=== PATIENT | female | born 1940 | race Caucasian/White ===

== ENCOUNTER → 2016-09-29 | Day surgery (SDC) | payer OTHER ==
--- NOTE | 2016-10-03 15:10 | PATH ---
Surgical Pathology Report Patient Name: MAKENNA VILLAREAL [facility]. Rec. #: [id number] /Age/Gender: 1940 (Age: 76) / F Account: [id number] [facility] Taken: 09/29/2016 Received: 09/29/2016 Reported: 10/03/2016 Physicians: Lul Dewey M.D. Specimen(s) Received RIGHT BREAST CORE BIOPSY 5:00 3CM FN Clinical History Ultrasound findings: Highly suspicious/malignant r/o CA Final Diagnosis BREAST, RIGHT, 5:00, 3 CM FN, CORE BIOPSY: EMBOLI (2) OF METASTATIC CARCINOMA IN LYMPHOVASCULAR CHANNELS AND DETACHED CLUSTERS OF MALIGNANT CELLS PRESENT IN A BACKGROUND OF NECROSIS. (SEE NOTE) REMAINING BREAST TISSUE SHOWS PREDOMINANTLY STROMAL FIBROSIS. Note: CD34 and factor VIII (vWF) immunostains performed at [place], [place] ([id number]) highlight vascular endothelium in the lymphovascular channels with tumor emboli. This finding supports the diagnosis. Case discussed with Dr. Mcqueen on 10/03/16. See also concurrent right axillary lymph node FNA report [id number]. Results of ER and KY studies performed at [facility] are as follows: ER (clone [id number] mouse monoclonal antibody by [employer]): 0 % nuclear staining (Negative). KY (clone16 mouse monoclonal antibody by [employer]): 0 % nuclear staining (Negative). Results of Her2 (IHC) studies performed at [place], [place] ([id number]) are as follows: Her2 IHC (EP3 from [employer], formerly known as [id number], using [employer] Polymer Refine detection kit): 3+ (Positive). Positive and negative controls (internal if applicable) show appropriate results. Formalin fixation and cold ischemic times are within current ASCO/CAP recommendations for ER, KY and Her2 testing. Electronically Signed Chrissy Chiang M.D. Gross Description Received in formalin labeled "right breast biopsy 5:00, 3 cmfn," is a 2.0 x 1.8 x 0.3 cm aggregate of multiple nash-yellow, irregular to cylindrical portions of fibroadipose tissue admixed with blood clot. The formalin is filtered and the specimen is entirely submitted in one cassette. Time to formalin fixation: 2 minutes Total formalin fixation time: Approximately 7 hours 09/29/2016
--- NOTE | 2016-10-03 15:28 | PATH ---
Cytology Non-Gynecological Report Patient Name: MAKENNA VILLAREAL [facility]. Rec. #: [id number] /Age/Gender: 1940 (Age: 76) / F Account: [id number] Location: Taken: 09/29/2016 Received: 09/29/2016 Reported: 10/03/2016 Physicians: Lul Dewey M.D. Specimen(s) Received RIGHT AXILLAY LYMPH NODE FNA Clinical History Right axillary lymph node FNA Final Diagnosis LYMPH NODE, RIGHT AXILLA, FINE NEEDLE ASPIRATION: SATISFACTORY FOR EVALUATION. POSITIVE FOR MALIGNANT CELLS; METASTATIC CARCINOMA. Note: See also concurrent right breast core biopsy [id number]. Electronically Signed Chrissy Chiang M.D. Gross Description Received in 50 % alcohol is approximately 15 cc of clear fluid from which one smear and one cytoconcentrate slide is prepared. Also received in 95% alcohol are four direct smears which are submitted for appropriate stains.
== END | disposition home or self-care (01) ==
LOC: FRADUS-SUR 12:58
PROVIDERS: ATTEND Surgery
PROC: 0HBT3ZX Excision of Right Breast, Percutaneous Approach, Diagnostic (ICD-10-PCS; principal; 2016-09-29)
PROC: 07953ZX Drainage of Right Axillary Lymphatic, Percutaneous Approach, Diagnostic (ICD-10-PCS; 2016-09-29)
PROC: BH40ZZZ Ultrasonography of Right Breast (ICD-10-PCS; 2016-09-29)
DX: C50.911 Malignant neoplasm of unspecified site of right female breast (principal); C77.3 Secondary and unspecified malignant neoplasm of axilla and upper limb lymph nodes; Z17.1 Estrogen receptor negative status [ER-]
CPT/HCPCS: 10022; 19083; 76942; 87899; 88173; 88305-TC; 88342-TC; A4648; G0206-TC

== ENCOUNTER 2016-10-04 14:14 | Emergency (ER) | payer OTHER ==
--- NOTE | 2016-10-04 14:29 | PDOC ---
Medical Decision Making - Medical Decision Making 10/04/16 14:24 RAPID MEDICAL TRIAGE: Patient (pt) comes with On exam lungs are clear, heart RRR, Pt is afebrile. She has a runny nose, and she has body aches. She was asked by Dr. Mata's office (surgeon) to come immediately to the hospital for admission, as a recent right breast biopsy shows cancer cells. She states that her right breast is discolored. Pt will have a flu swab and she will be sent into the ER for preop admission workup. *DC/Admit/Observation/Transfer Diagnosis at time of Disposition: Breast pain, right, Cancer - Discharge Dispostion Disposition: HOME Condition at time of disposition: Stable - Prescriptions Prescriptions: Acetaminophen W/ Codeine #3 [Tylenol # 3 -] 1 tab PO Q4H #30 tablet MDD 6 - Referrals Referrals: Mello Mata MD [Staff Physician] - Duane Marquez MD [Primary Care Provider] - - Patient Instructions Additional Instructions: Residual from you are breast biopsy last week. There is bruising at the site however there is no evidence of blood clot also called the hematoma. The pain is normal after biopsy. Your prescribed today Tylenol with codeine. Follow the directions on the bottle but take as needed for pain. It is also important that you rest for the next few days. Keep your regularly scheduled follow-up with Dr. mata. Spoke with Dr. Woodson today and they will see you in the office tomorrow. Return to the ER if her pain becomes unmanageable at home or if you feel a new lump at the site of the biopsy.
[2016-10-04 14:31] VITALS: BMI 23.4
[2016-10-04] MEDS ORDERED: ACETAMINOPHEN 325 MG TABLET (FP) PO ONE (15:25)
[2016-10-04] MEDS ORDERED: ACETAMINOPHEN 325 MG TABLET (FP) ONE (15:48)
--- NOTE | 2016-10-04 16:50 | PDOC ---
History of Present Illness - General Chief Complaint: Revisit,Radiology Variance Stated Complaint: PCP SENT,BREAST PAIN Time Seen by Provider: 10/04/16 14:22 - History of Present Illness Initial Comments: 10/04/16 16:54 Ms. Canseco is a 76-year-old female past medical history of depression presents to the ED today complaining of right breast pain. Patient states she was recently diagnosed with cancer of her right breast on Sunday09/29/16. This is following core needle biopsy. Patient reports today excessive bruising of her right breast. She is concerned about the way the breast is healing. She spoke with her surgeon Dr. mata and he told her to go to the ER. Currently patient is complaining of 6 out of 10 pain in the right breast. Denies fevers chills chest pain palpitations shortness of breath dyspnea nausea vomiting diarrhea. Past History - Past Medical History Allergies/Adverse Reactions: Allergies Allergy/AdvReac Type Severity Reaction Status Date / Time Penicillins Allergy Severe Rash Verified 10/04/16 14:26 Home Medications: Ambulatory Orders Aspirin Coated [Ecotrin -] 81 mg PO DAILY #0 tablet.ec 02/14/12 Atorvastatin Ca [Lipitor] 10 mg PO HS #0 tablet 02/14/12 Meclizine HCl 25 mg PO TID #0 tablet 02/14/12 Amlodipine Besylate 10 mg PO DAILY 07/07/15 Cholecalciferol (Vitamin D3) [Vitamin D3] 2,000 unit PO DAILY 08/27/15 Clonazepam 0.5 mg PO PRN PRN 08/27/15 Lisinopril/Hydrochlorothiazide [Lisinopril-Hctz 20-25 mg Tab] 1 each PO DAILY Acetaminophen W/ Codeine #3 [Tylenol # 3 -] 1 tab PO Q4H #30 tablet MDD 6 Anemia: No Asthma: No Cancer: No Cardiac Disorders: No CVA: No COPD: No CHF: No Dementia: No Diabetes: No GI Disorders: Yes (gall stones) Disorders: Yes (URINARY URGENCY) HTN: Yes Hypercholesterolemia: Yes Liver Disease: No Seizures: No Thyroid Disease: No - Surgical History Abdominal Surgery: No Appendectomy: No Cardiac Surgery: No Cholecystectomy: Yes Lung Surgery: No Neurologic Surgery: No Orthopedic Surgery: No - Psycho/Social/Smoking Cessation Hx Suicidal Ideation: No Smoking Status: No Smoking History: Never smoked Have you smoked in the past 12 months: No Number of Cigarettes Smoked Daily: 0 Hx Alcohol Use: No Drug/Substance Use Hx: No Substance Use Type: None Hx Substance Use Treatment: No *Physical Exam - Vital Signs Last Vital Signs Temp Pulse Resp BP Pulse Ox 98.5 F 96 H 19 135/94 97 10/04/16 14:26 10/04/16 14:26 10/04/16 14:26 10/04/16 14:26 10/04/16 14:26 - Physical Exam Comments: 10/04/16 16:54 GENERAL: Well developed, well nourished. Awake and alert. No acute distress. Pt. is anxious on presentation. HEENT: Normocephalic, atraumatic. PERRLA, EOMI. No conjunctival pallor. Sclera are non- icteric. Moist mucous membranes. Oropharynx is clear. NECK: Supple. Full ROM. No JVD. Carotid pulses 2+ and symmetric, without bruits. No thyromegaly. No lymphadenopathy. CARDIOVASCULAR: Regular rate and rhythm. No murmurs, rubs, or gallops. Distal pulses are 2+ and symmetric. PULMONARY: No evidence of respiratory distress. Lungs clear to auscultation bilaterally. No wheezing, rales or rhonchi. BREAST: R breast: Old ecchimosis of the inferior breast from the 5 o'clock to 8 o'clock position. A mass is felt at the 5 o'clock position. It is freely movable. The mass corresponds with her previous ultrasound. No hematoma felt at this time. L breast: No rashes, skin changes, or masses felt. ABDOMINAL: Soft. Non-tender. Non-distended. No rebound or guarding. No organomegaly. Normoactive bowel sounds. MUSCULOSKELETAL Normal range of motion at all joints. No bony deformities or tenderness. No CVA tenderness. EXTREMITIES: No cyanosis. No clubbing. No edema. No calf tenderness. SKIN: Warm and dry. Normal capillary refill. No rashes. No jaundice. NEUROLOGICAL: Alert, awake, appropriate. Cranial nerves 2-12 intact. No deficits to light touch and temperature in face, upper extremities and lower extremities. No motor deficits in the in face, upper extremities and lower extremities. Normoreflexic in the upper and lower extremities. Normal speech. Toes are down- going bilaterally. Gait is normal without ataxia. PSYCHIATRIC: Cooperative. Good eye contact. Appropriate mood and affect. Medical Decision Making - Medical Decision Making 10/04/16 15:38 Ms. Canseco is a 76-year-old female with a past medical history of depression presenting to the ED today with right breast pain. Patient states that Dr. mata wanted her to be evaluated in the ED after complaining of breast pain. patient states that Dr. mata wanted to have her admitted. Unsure as to why he would be wanting admission at this time. We will try to consult with him and Dr. Ribeiro to try and determine disposition. There is no evidence of hematoma or infection of the right breast. At this time patient is stable afebrile not using accessory muscles to breathe. She does admit to some pain about a 6 out of 10. We'll treat for pain at this time. First call to Dr. Mata. 10/04/16 16:[address] Mata. Will page Dr. Ribeiro at this time 10/04/16 16:[address] Woodson covering for Dr. Ribeiro, discussed the case. At this time there is no need for admission based on physical exam. Will see pt in the office tomorrow. 10/04/16 16:32 Dr. Mata called back. Based on patient's phone call the office he was concerned for a hematoma of the breast. He wanted to have the patient evaluated. Discussed the case given exam findings he also believes that the patient does not need to be admitted at this time. He said to have the patient keep her scheduled appointment on Sunday. Will discharge home at this time with pain control. Discussed the need to have the pt. keep her regularly scheduled appointment with Dr. Mata and to see Dr. Ribeiro tomorrow. Encouraged rest for the pt. *DC/Admit/Observation/Transfer Diagnosis at time of Disposition: Breast pain, right, Cancer - Discharge Dispostion Disposition: HOME Condition at time of disposition: Stable Admit: No - Prescriptions Prescriptions: Acetaminophen W/ Codeine #3 [Tylenol # 3 -] 1 tab PO Q4H #30 tablet MDD 6 - Referrals Referrals: Mello Mata MD [Staff Physician] - Duane Marquez MD [Staff Physician] - - Patient Instructions Additional Instructions: Residual from you are breast biopsy last week. There is bruising at the site however there is no evidence of blood clot also called the hematoma. The pain is normal after biopsy. Your prescribed today Tylenol with codeine. Follow the directions on the bottle but take as needed for pain. It is also important that you rest for the next few days. Keep your regularly scheduled follow-up with Dr. mata. Spoke with Dr. Woodson today and they will see you in the office tomorrow. Return to the ER if her pain becomes unmanageable at home or if you feel a new lump at the site of the biopsy.
[2016-10-04 17:49] VITALS: BP 145/79; PULSE 81; TEMP 97.9
--- NOTE | 2016-10-04 18:33 | PDOC ---
*Physical Exam - Vital Signs Last Vital Signs Temp Pulse Resp BP Pulse Ox 97.9 F 81 19 145/79 97 10/04/16 17:48 10/04/16 17:48 10/04/16 17:48 10/04/16 17:48 10/04/16 17:48 Heart Score/ECG Review #1 ECG reviewed & interpreted by me at: 18:33 10/04/16 18:33 Twelve-lead EKG was performed and reviewed by me. There is normal sinus rhythm with a normal rate OF 89bpm. The axis is normal. The intervals are normal - pr: 136ms, QRS:82ms, QTc:442ms,. There are no ST or T wave abnormalities. (+) [facility] ED Treatment Course - ADDITIONAL ORDERS Additional order review: 10/04/16 15:11 Influenza Types A,B Antigen (HEIDI) - Final Nasopharyngeal Swab - Final - Medications Given in the ED: ED Medications Discontinued Medications Generic Name Dose Route Start Last Admin Trade Name Freq PRN Reason Stop Dose Admin Acetaminophen 650 mg 10/04/16 15:25 10/04/16 15:53 Tylenol - PO 10/04/16 15:26 650 mg ONCE ONE Administration Medical Decision Making - Medical Decision Making 10/04/16 18:32 Pt seen by Midlevel Provider under my direct supervision Ancillary studies reviewed I agree with plan as outlined by Midlevel Provider *DC/Admit/Observation/Transfer Diagnosis at time of Disposition: Breast pain, right, Cancer - Discharge Dispostion Disposition: HOME Condition at time of disposition: Stable - Prescriptions Prescriptions: Acetaminophen W/ Codeine #3 [Tylenol # 3 -] 1 tab PO Q4H #30 tablet MDD 6 - Referrals Referrals: Mello Mata MD [Staff Physician] - Duane Marquez MD [Primary Care Provider] - - Patient Instructions Additional Instructions: Residual from you are breast biopsy last week. There is bruising at the site however there is no evidence of blood clot also called the hematoma. The pain is normal after biopsy. Your prescribed today Tylenol with codeine. Follow the directions on the bottle but take as needed for pain. It is also important that you rest for the next few days. Keep your regularly scheduled follow-up with Dr. mata. Spoke with Dr. Woodson today and they will see you in the office tomorrow. Return to the ER if her pain becomes unmanageable at home or if you feel a new lump at the site of the biopsy. - Post Discharge Activity
--- NOTE | 2016-10-05 16:14 | EKG ---
Test Reason : Blood Pressure : / mmHG Vent. Rate : 096 BPM Atrial Rate : 096 BPM P-R Int : 142 ms QRS Dur : 088 ms QT Int : 358 ms P-R-T Axes : 047 -14 019 degrees QTc Int : 452 ms NORMAL SINUS RHYTHM MODERATE VOLTAGE CRITERIA FOR LVH, MAY BE NORMAL VARIANT BORDERLINE ECG WHEN COMPARED WITH ECG OF 07-FEB-2012 13:31, NO SIGNIFICANT CHANGE WAS FOUND Confirmed by KATHY FULLER, CHANA ([id number]) on 10/05/2016 4:13:55 PM Referred By: Confirmed By:CHANA CHAVEZ MD
--- NOTE | 2016-10-09 16:26 | EKG ---
Test Reason : Blood Pressure : / mmHG Vent. Rate : 089 BPM Atrial Rate : 089 BPM P-R Int : 136 ms QRS Dur : 082 ms QT Int : 364 ms P-R-T Axes : 033 -14 009 degrees QTc Int : 442 ms NORMAL SINUS RHYTHM MODERATE VOLTAGE CRITERIA FOR LVH, MAY BE NORMAL VARIANT BORDERLINE ECG WHEN COMPARED WITH ECG OF 04-OCT-2016 14:49, NO SIGNIFICANT CHANGE WAS FOUND Confirmed by KRISTEN FULLER, ARCADIO ([id number]) on 10/09/2016 4:26:12 PM Referred By: Confirmed By:ARCADIO PETERSON MD
== END 2016-10-04 17:51 | disposition home or self-care (01) ==
LOC: JER 14:14
DX: F32.9 Major depressive disorder, single episode, unspecified (principal); I10 Essential (primary) hypertension; E78.00 Pure hypercholesterolemia, unspecified
CPT/HCPCS: 71020-TC; 87804; 93005; 93010; 99282-25

== ENCOUNTER 2017-01-29 07:40 | Day surgery (SDC) | payer OTHER ==
[2017-01-29 09:35] LABS: BASOPHIL 1.3 % (0-2.0); EOSINOPHIL 4.1 % (0-4.5); MCH 31.2 pg (25.7-33.7); MCHC 33.9 g/dl (32.0-36.0); MEAN CELL VOLUME 92.1 fl (80-96); MEAN PLT VOLUME 9.2 fl (7.5-11.1); NEUTROPHILS 53.1 % (42.8-82.8); PLATELET COUNT 207 K/MM3 (134-434); RDW 12.8 % (11.6-15.6); WHITE BLOOD COUNT 4.8 K/mm3 (4.0-10.0)
[2017-01-29] MEDS ORDERED: ACETAMINOPHEN 325 MG TABLET (FP) PO ONE (10:00)
[2017-01-29] MEDS ORDERED: SODIUM CHLORIDE 250 ML IV ONE ×2 (10:00→14:00)
[2017-01-29] MEDS ORDERED: RANITIDINE IVPB ONE (10:00)
[2017-01-29] MEDS ORDERED: DEXAMETHASONE INJECTION 10 MG in SODIUM CHLORIDE 50 ML IVPB ONE (10:00)
[2017-01-29] MEDS ORDERED: ONDANSETRON IVPB ONE (10:00)
[2017-01-29] MEDS ORDERED: [UNRECOGNIZED DRUG - OTHER] IVPB ONE (10:00)
[2017-01-29] MEDS ORDERED: DIPHENHYDRAMINE IVPB ONE (10:00)
[2017-01-29 10:01] LABS: ALBUMIN 3.9 g/dl (3.4-5.0); ANION GAP 8 (8-16); BILIRUBIN,DIRECT < 0.1 mg/dL (0.0-0.2); CALCIUM 9.2 mg/dL (8.5-10.1); CO2 29 mmol/L (21-32); COCKROFT - GAULT 43.35; CREATININE 0.9 mg/dL (0.55-1.02); GLUCOSE,RANDOM 104 mg/dL (74-106); MAGNESIUM 2.3 mg/dL (1.8-2.4); SGOT/AST 30 U/L (15-37); SGPT/ALT 27 U/L (12-78)
[2017-01-29 10:03] LABS: ALK PHOS 49 U/L (45-117); BILIRUBIN,TOTAL 0.6 mg/dL (0.2-1.0); TOT PROT 7.8 g/dl (6.4-8.2)
[2017-01-29] MEDS ORDERED: PACLITAXEL 114 MG in SODIUM CHLORIDE 250 ML IVPB ONE (10:30)
[2017-01-29] MEDS ORDERED: PORTA CATH FLUSH 10 ML IVPUSH ONE (10:58)
[2017-01-29] MEDS ORDERED: PERTUZUMAB 840 MG in SODIUM CHLORIDE 250 ML IVPB ONE (11:30)
[2017-01-29] MEDS ORDERED: SODIUM CHLORIDE IVPB ONE (12:30)
[2017-01-29] MEDS ORDERED: TRASTUZUMAB IVPB ONE (12:30)
[2017-01-29] MEDS ORDERED: DEXAMETHASONE SOD PHOSPHATE 10 MG/1 ML VIAL IVPB ONE (15:15)
[2017-01-29 19:51] VITALS: BP 130/77; PULSE 67; TEMP 98
== END 2017-01-29 20:00 | disposition home or self-care (01) ==
LOC: JONCCHEMO 07:40 → J7W 10:39 → JONCCHEMO 20:00
PROVIDERS: ATTEND Internal Medicine Hematology & Oncology
PROC: 3E04305 Introduction of Other Antineoplastic into Central Vein, Percutaneous Approach (ICD-10-PCS; principal; 2017-01-29)
PROC: 3E043GC Introduction of Other Therapeutic Substance into Central Vein, Percutaneous Approach (ICD-10-PCS; 2017-01-29)
PROC: 3E0437Z Introduction of Electrolytic and Water Balance Substance into Central Vein, Percutaneous Approach (ICD-10-PCS; 2017-01-29)
DX: Z51.11 Encounter for antineoplastic chemotherapy (principal); C50.311 Malignant neoplasm of lower-inner quadrant of right female breast
CPT/HCPCS: 96361; 96367; 96375; 96413; 96417; J9267; J9306; J9355; 36415; 80053; 80076; 83735; 85025; 96360; 96415

== ENCOUNTER 2017-02-05 07:35 | Day surgery (SDC) | payer OTHER ==
[2017-02-05 09:56] LABS: WHITE BLOOD COUNT 4.9 K/mm3 (4.0-10.0)
[2017-02-05 09:58] LABS: BASOPHIL 1.2 % (0-2.0); EOSINOPHIL 5.9 % (0-4.5); MCH 31.5 pg (25.7-33.7); MCHC 34.3 g/dl (32.0-36.0); MEAN PLT VOLUME 9.6 fl (7.5-11.1); NEUTROPHILS 58.2 % (42.8-82.8); PLATELET COUNT 217 K/MM3 (134-434); RDW 12.8 % (11.6-15.6)
[2017-02-05] MEDS ORDERED: RANITIDINE IVPB ONE (10:00)
[2017-02-05] MEDS ORDERED: ONDANSETRON IVPB ONE (10:00)
[2017-02-05] MEDS ORDERED: DIPHENHYDRAMINE IVPB ONE (10:00)
[2017-02-05] MEDS ORDERED: [UNRECOGNIZED DRUG - OTHER] IVPB ONE (10:00)
[2017-02-05] MEDS ORDERED: SODIUM CHLORIDE 250 ML IV ONE ×2 (10:00→12:00)
[2017-02-05] MEDS ORDERED: DEXAMETHASONE INJECTION 10 MG in SODIUM CHLORIDE 50 ML IVPB ONE (10:00)
[2017-02-05] MEDS ORDERED: PACLITAXEL 114 MG in SODIUM CHLORIDE 250 ML IVPB ONE (10:30)
[2017-02-05 10:45] LABS: ALBUMIN 3.8 g/dl (3.4-5.0); ALK PHOS 43 U/L (45-117); ANION GAP 7 (8-16); BILIRUBIN,TOTAL 0.3 mg/dL (0.2-1.0); CALCIUM 9.1 mg/dL (8.5-10.1); CO2 28 mmol/L (21-32); CREATININE 0.8 mg/dL (0.55-1.02); GLUCOSE,RANDOM 104 mg/dL (74-106); MAGNESIUM 2.3 mg/dL (1.8-2.4); SGOT/AST 28 U/L (15-37); SGPT/ALT 33 U/L (12-78); TOT PROT 7.5 g/dl (6.4-8.2)
[2017-02-05] MEDS ORDERED: TRASTUZUMAB IVPB ONE (11:30)
[2017-02-05] MEDS ORDERED: PORTA CATH FLUSH 10 ML IVPUSH ONE (11:30)
[2017-02-05] MEDS ORDERED: SODIUM CHLORIDE IVPB ONE (11:30)
[2017-02-05 13:57] VITALS: TEMP 97.8
[2017-02-05 17:29] VITALS: BP 137/86; PULSE 82
== END 2017-02-05 18:28 | disposition home or self-care (01) ==
LOC: JONCCHEMO 07:35 → J7W 11:09 → JONCCHEMO 18:28
PROVIDERS: ATTEND Internal Medicine Hematology & Oncology
DX: Z51.11 Encounter for antineoplastic chemotherapy (principal); C50.311 Malignant neoplasm of lower-inner quadrant of right female breast
CPT/HCPCS: 36415; 80053; 83735; 85025; 96361; 96367; 96375; 96413; 96417; J9355

== ENCOUNTER 2017-02-12 07:20 | Day surgery (SDC) | payer OTHER ==
[2017-02-12 09:27] LABS: BASOPHIL 1.4 % (0-2.0); EOSINOPHIL 5.2 % (0-4.5); MCH 31.2 pg (25.7-33.7); MCHC 33.9 g/dl (32.0-36.0); MEAN CELL VOLUME 92.1 fl (80-96); NEUTROPHILS 53.8 % (42.8-82.8); PLATELET COUNT 217 K/MM3 (134-434); WHITE BLOOD COUNT 4.1 K/mm3 (4.0-10.0)
[2017-02-12] MEDS ORDERED: DIPHENHYDRAMINE IVPB ONE (10:00)
[2017-02-12] MEDS ORDERED: RANITIDINE IVPB ONE (10:00)
[2017-02-12] MEDS ORDERED: DEXAMETHASONE INJECTION 10 MG in SODIUM CHLORIDE 50 ML IVPB ONE (10:00)
[2017-02-12] MEDS ORDERED: [UNRECOGNIZED DRUG - OTHER] IVPB ONE (10:00)
[2017-02-12] MEDS ORDERED: ONDANSETRON IVPB ONE (10:00)
[2017-02-12] MEDS ORDERED: SODIUM CHLORIDE 250 ML IV ONE ×2 (10:00→17:30)
[2017-02-12 10:05] LABS: ALBUMIN 3.7 g/dl (3.4-5.0); ALK PHOS 46 U/L (45-117); ANION GAP 7 (8-16); BILIRUBIN,TOTAL 0.4 mg/dL (0.2-1.0); CO2 29 mmol/L (21-32); GLUCOSE,RANDOM 110 mg/dL (74-106); SGOT/AST 26 U/L (15-37); SGPT/ALT 32 U/L (12-78); TOT PROT 7.4 g/dl (6.4-8.2)
[2017-02-12 10:09] LABS: BILIRUBIN,DIRECT < 0.1 mg/dL (0.0-0.2)
[2017-02-12] MEDS ORDERED: PACLITAXEL 114 MG in SODIUM CHLORIDE 250 ML IVPB ONE (10:30)
[2017-02-12 11:26] LABS: URINE APPEARANCE CLEAR; URINE BILIRUBIN NEGATIVE (NEGATIVE); URINE BLOOD NEGATIVE (NEGATIVE); URINE COLOR LTYELLOW; URINE GLUCOSE (UA) NEGATIVE (NEGATIVE); URINE KETONE NEGATIVE (NEGATIVE); URINE LEUK ESTERASE NEGATIVE (NEGATIVE); URINE NITRITE NEGATIVE (NEGATIVE); URINE PROTEIN NEGATIVE (NEGATIVE); URINE UROBILINOGEN NEGATIVE E.U./dl (0.2-1.0)
[2017-02-12] MEDS ORDERED: TRASTUZUMAB IVPB ONE (11:30)
[2017-02-12] MEDS ORDERED: SODIUM CHLORIDE IVPB ONE (11:30)
[2017-02-12] MEDS ORDERED: PORTA CATH FLUSH 10 ML IVPUSH ONE (11:56)
[2017-02-12 17:07] VITALS: BP 122/75; PULSE 79; TEMP 98.1
== END 2017-02-12 18:43 | disposition home or self-care (01) ==
LOC: JONCCHEMO 07:20 → J7W 11:38 → JONCCHEMO 18:43
PROVIDERS: ATTEND Internal Medicine Hematology & Oncology
PROC: 3E04305 Introduction of Other Antineoplastic into Central Vein, Percutaneous Approach (ICD-10-PCS; principal; 2017-02-12)
PROC: 3E043GC Introduction of Other Therapeutic Substance into Central Vein, Percutaneous Approach (ICD-10-PCS; 2017-02-12)
PROC: 3E0437Z Introduction of Electrolytic and Water Balance Substance into Central Vein, Percutaneous Approach (ICD-10-PCS; 2017-02-12)
DX: Z51.11 Encounter for antineoplastic chemotherapy (principal); C50.311 Malignant neoplasm of lower-inner quadrant of right female breast; I10 Essential (primary) hypertension; E78.00 Pure hypercholesterolemia, unspecified; M19.91 Primary osteoarthritis, unspecified site
CPT/HCPCS: 96361; 96367; 96375; 96413; 96417; J9045; J9355; 36415; 80053; 80076; 81003; 83735; 85025; 87086; 96415

== ENCOUNTER 2017-02-19 07:35 | Day surgery (SDC) | payer OTHER ==
[2017-02-19] MEDS ORDERED: ONDANSETRON IVPB ONE (10:00)
[2017-02-19] MEDS ORDERED: RANITIDINE IVPB ONE (10:00)
[2017-02-19] MEDS ORDERED: DEXAMETHASONE INJECTION 10 MG in SODIUM CHLORIDE 50 ML IVPB ONE (10:00)
[2017-02-19] MEDS ORDERED: DIPHENHYDRAMINE IVPB ONE (10:00)
[2017-02-19] MEDS ORDERED: SODIUM CHLORIDE 250 ML IV ONE ×2 (10:00→12:30)
[2017-02-19] MEDS ORDERED: [UNRECOGNIZED DRUG - OTHER] IVPB ONE (10:00)
[2017-02-19] MEDS ORDERED: PACLITAXEL 114 MG in SODIUM CHLORIDE 250 ML IVPB ONE (10:30)
[2017-02-19 11:09] LABS: BASOPHIL 1.1 % (0-2.0); EOSINOPHIL 4.6 % (0-4.5); MCH 31.6 pg (25.7-33.7); MCHC 34.5 g/dl (32.0-36.0); MEAN CELL VOLUME 91.8 fl (80-96); MEAN PLT VOLUME 9.9 fl (7.5-11.1); NEUTROPHILS 50.3 % (42.8-82.8); PLATELET COUNT 226 K/MM3 (134-434); RDW 12.9 % (11.6-15.6)
[2017-02-19] MEDS ORDERED: SODIUM CHLORIDE IVPB ONE (11:30)
[2017-02-19] MEDS ORDERED: TRASTUZUMAB IVPB ONE (11:30)
[2017-02-19] MEDS ORDERED: PERTUZUMAB 420 MG in SODIUM CHLORIDE 250 ML IVPB ONE (12:00)
[2017-02-19 14:33] VITALS: TEMP 98.1
[2017-02-19] MEDS ORDERED: PORTA CATH FLUSH 10 ML IVPUSH ONE (14:33)
[2017-02-19] MEDS ORDERED: ACETAMINOPHEN 325 MG TABLET (FP) PO ONE (17:30)
[2017-02-19 18:00] VITALS: BP 112/71; PULSE 83
== END 2017-02-19 18:18 | disposition home or self-care (01) ==
LOC: JONCCHEMO 07:35 → J7W 11:55 → JONCCHEMO 18:18
PROVIDERS: ATTEND Internal Medicine Hematology & Oncology
DX: Z51.11 Encounter for antineoplastic chemotherapy (principal); C50.919 Malignant neoplasm of unspecified site of unspecified female breast
CPT/HCPCS: 36415; 85025; 96361; 96367; 96375; 96413; 96417; J9306; J9355

== ENCOUNTER 2017-02-26 07:46 | Day surgery (SDC) | payer OTHER ==
[2017-02-26] MEDS ORDERED: SODIUM CHLORIDE 250 ML IV ONE ×2 (08:00→11:30)
[2017-02-26] MEDS ORDERED: DEXAMETHASONE IVPB ONE (08:30)
[2017-02-26] MEDS ORDERED: [UNRECOGNIZED DRUG - OTHER] IVPB ONE (08:30)
[2017-02-26] MEDS ORDERED: RANITIDINE IVPB ONE (08:30)
[2017-02-26] MEDS ORDERED: DIPHENHYDRAMINE IVPB ONE (08:30)
[2017-02-26] MEDS ORDERED: PACLITAXEL 114 MG in SODIUM CHLORIDE 250 ML IVPB ONE (09:00)
[2017-02-26] MEDS ORDERED: TRASTUZUMAB IVPB ONE (10:00)
[2017-02-26] MEDS ORDERED: SODIUM CHLORIDE IVPB ONE (10:00)
[2017-02-26 10:10] LABS: BASOPHIL 1.3 % (0-2.0); EOSINOPHIL 3.1 % (0-4.5); MCH 31.9 pg (25.7-33.7); MCHC 34.4 g/dl (32.0-36.0); MEAN CELL VOLUME 92.7 fl (80-96); MEAN PLT VOLUME 8.9 fl (7.5-11.1); NEUTROPHILS 60.7 % (42.8-82.8); PLATELET COUNT 239 K/MM3 (134-434); RDW 13.5 % (11.6-15.6); WHITE BLOOD COUNT 4.4 K/mm3 (4.0-10.0)
[2017-02-26 10:48] LABS: ALBUMIN 3.7 g/dl (3.4-5.0); ANION GAP 5 (8-16); BILIRUBIN,TOTAL 0.4 mg/dL (0.2-1.0); CALCIUM 8.9 mg/dL (8.5-10.1); CO2 28 mmol/L (21-32); CREATININE 0.8 mg/dL (0.55-1.02); GLUCOSE,RANDOM 106 mg/dL (74-106); MAGNESIUM 2.2 mg/dL (1.8-2.4); SGOT/AST 38 U/L (15-37); SGPT/ALT 47 U/L (12-78); TOT PROT 7.2 g/dl (6.4-8.2)
[2017-02-26 10:49] LABS: ALK PHOS 45 U/L (45-117)
[2017-02-26 10:51] LABS: BILIRUBIN,DIRECT < 0.1 mg/dL (0.0-0.2)
[2017-02-26] MEDS ORDERED: PORTA CATH FLUSH 10 ML IVPUSH ONE (11:47)
[2017-02-26 17:12] VITALS: BP 151/84; PULSE 81; TEMP 98
== END 2017-02-26 17:18 | disposition home or self-care (01) ==
LOC: JONCCHEMO 07:46 → J7W 11:36 → JONCCHEMO 17:18
PROVIDERS: ATTEND Internal Medicine Hematology & Oncology
PROC: 3E04305 Introduction of Other Antineoplastic into Central Vein, Percutaneous Approach (ICD-10-PCS; principal; 2017-02-26)
PROC: 3E043GC Introduction of Other Therapeutic Substance into Central Vein, Percutaneous Approach (ICD-10-PCS; 2017-02-26)
PROC: 3E0437Z Introduction of Electrolytic and Water Balance Substance into Central Vein, Percutaneous Approach (ICD-10-PCS; 2017-02-26)
DX: Z51.11 Encounter for antineoplastic chemotherapy (principal); C50.311 Malignant neoplasm of lower-inner quadrant of right female breast
CPT/HCPCS: 96361; 96366; 96367; 96413; 96417; J9267; J9355; 36415; 80053; 80076; 83735; 85025; 96375; 96415

== ENCOUNTER 2017-03-01 22:37 | Observation (INO) | payer OTHER ==
[2017-03-01 22:42] VITALS: BMI 27.7
--- NOTE | 2017-03-01 23:14 | PDOC ---
History of Present Illness - General History Source: Patient Exam Limitations: No Limitations - History of Present Illness Initial Comments: 03/01/17 23:30 The patient is a 76-year-old female, with a significant past medical history of HTN and right breast ca (diagnosed 09/29/16), who presents to the ED with difficulty speaking that began today. Patient received chemo on Sunday and is a patient of Dr. Matute. Dr. Mercado called in to the ED today and reported that the patient experienced 2 episodes where she was attempting to talk and felt like she could not. She also reports lower extremity heaviness and numbness to her right upper extremity. Pt presented ambulatory to the ED and denies any chest pain, headache, or shortness of breath. She does report having slight nausea but no vomiting. She denies any diarrhea or fever, and her symptoms that she originally complained of have not returned. <Emily Canseco - Last Filed: 03/01/17 23:30> - General History Source: Patient, Family <Ron Howell - Last Filed: 03/02/17 01:00> - General Chief Complaint: CVA/TIA Stated Complaint: NUMBNESS Time Seen by Provider: 03/01/17 22:41 Past History <Emily Canseco - Last Filed: 03/01/17 23:30> - Past Medical History Anemia: No Asthma: No Cancer: No Cardiac Disorders: No CVA: No COPD: No CHF: No Dementia: No Diabetes: No GI Disorders: Yes (gall stones) Disorders: Yes (URINARY URGENCY) HTN: Yes Hypercholesterolemia: Yes Liver Disease: No Seizures: No Thyroid Disease: No - Surgical History Abdominal Surgery: No Appendectomy: No Cardiac Surgery: No Cholecystectomy: Yes Lung Surgery: No Neurologic Surgery: No Orthopedic Surgery: No - Psycho/Social/Smoking Cessation Hx Suicidal Ideation: No Smoking Status: No Smoking History: Never smoked Have you smoked in the past 12 months: No Number of Cigarettes Smoked Daily: 0 Hx Alcohol Use: No Drug/Substance Use Hx: No Substance Use Type: None Hx Substance Use Treatment: No <Ron Howell - Last Filed: 03/02/17 01:00> - Past Medical History Allergies/Adverse Reactions: Allergies Allergy/AdvReac Type Severity Reaction Status Date / Time Penicillins Allergy Severe Rash Verified 03/01/17 22:39 Home Medications: Ambulatory Orders Aspirin Coated [Ecotrin -] 81 mg PO DAILY #0 tablet.ec 02/14/12 Atorvastatin Ca [Lipitor] 10 mg PO HS #0 tablet 02/14/12 Meclizine HCl 25 mg PO TID #0 tablet 02/14/12 Amlodipine Besylate 10 mg PO DAILY 07/07/15 Cholecalciferol (Vitamin D3) [Vitamin D3] 2,000 unit PO DAILY 08/27/15 Clonazepam 0.5 mg PO PRN PRN 08/27/15 Lisinopril/Hydrochlorothiazide [Lisinopril-Hctz 20-25 mg Tab] 1 each PO DAILY Acetaminophen W/ Codeine #3 [Tylenol # 3 -] 1 tab PO Q4H #30 tablet MDD 6 Review of Systems - Review of Systems Able to Perform ROS?: Yes Comments:: 03/01/17 23:31 CONSTITUTIONAL: Absent: fever, chills, diaphoresis, generalized weakness, malaise, loss of appetite HEENT: Absent: rhinorrhea, nasal congestion, throat pain, throat swelling, difficulty swallowing, mouth swelling, ear pain, eye pain, visual Changes CARDIOVASCULAR: Absent: chest pain, syncope, palpitations, irregular heart rate, lightheadedness , peripheral edema RESPIRATORY: Absent: cough, shortness of breath, dyspnea with exertion, orthopnea, wheezing, stridor, hemoptysis GASTROINTESTINAL: Present: nausea Absent: abdominal pain, abdominal distension, vomiting, diarrhea, constipation, melena, hematochezia GENITOURINARY: Absent: dysuria, frequency, urgency, hesitancy, hematuria, flank pain, genital pain MUSCULOSKELETAL: Absent: myalgia, arthralgia, joint swelling SKIN: Absent: rash, itching, pallor HEMATOLOGIC/IMMUNOLOGIC: Absent: easy bleeding, easy bruising, lymphadenopathy, frequent infections ENDOCRINE: Absent: unexplained weight gain, unexplained weight loss, heat intolerance, cold intolerance NEUROLOGIC: Present: heaviness to both lower extremities, numbness to right upper extremity , difficulty speaking Absent: headache, dizziness, unsteady gait, seizure, mental status changes, bladder or bowel incontinence PSYCHIATRIC: Absent: anxiety, depression, suicidal or homicidal ideation, hallucinations. <Emily Canseco - Last Filed: 03/01/17 23:30> *Physical Exam - Vital Signs Last Vital Signs Temp Pulse Resp BP Pulse Ox 98 F 100 H 18 160/90 97 03/01/17 22:39 03/01/17 22:39 03/01/17 22:39 03/01/17 22:39 03/01/17 22:39 - Physical Exam Comments: 03/01/17 23:33 GENERAL: Well developed, well nourished. Awake and alert. No acute distress. HEENT: Normocephalic, atraumatic. PERRLA, EOMI. No conjunctival pallor. Sclera are non- icteric. Moist mucous membranes. Oropharynx is clear. NECK: Supple. Full ROM. No JVD. Carotid pulses 2+ and symmetric, without bruits. No thyromegaly. No lymphadenopathy. CARDIOVASCULAR: Regular rate and rhythm. No murmurs, rubs, or gallops. Distal pulses are 2+ and symmetric. PULMONARY: No evidence of respiratory distress. Lungs clear to auscultation bilaterally. No wheezing, rales or rhonchi. ABDOMINAL: Soft. Non-tender. Non-distended. No rebound or guarding. No organomegaly. Normoactive bowel sounds. MUSCULOSKELETAL Normal range of motion at all joints. No bony deformities or tenderness. No CVA tenderness. EXTREMITIES: No cyanosis. No clubbing. No edema. No calf tenderness. SKIN: Warm and dry. Normal capillary refill. No rashes. No jaundice. NEUROLOGICAL: Alert, awake, appropriate. Cranial nerves 2-12 intact. No deficits to light touch and temperature in face, upper extremities and lower extremities. No motor deficits in the in face, upper extremities and lower extremities. Normoreflexic in the upper and lower extremities. Normal speech. PSYCHIATRIC: Cooperative. Good eye contact. Appropriate mood and affect. <Emily Canseco - Last Filed: 03/01/17 23:30> - Vital Signs Last Vital Signs Temp Pulse Resp BP Pulse Ox 98 F 100 H 18 160/90 97 03/01/17 22:39 03/01/17 22:39 03/01/17 22:39 03/01/17 22:39 03/01/17 22:39 <Ron Howell - Last Filed: 03/02/17 01:00> NIH Stroke Scale - Last Known Well Date/Time & Onset Date Last Known Well: 03/01/17 Time Last Known Well: 10:16 - Initial Evaluation Level of consciousness: Alert Ask patient the month and their age: Answers both correctly Ask patient to open & close eyes; make fist and let go: Obeys both correctly Best gaze (horizontal eye movement): Normal Visual field testing: No visual field loss Facial paresis (Show teeth/raise eyebrows/close eyes tight): Normal symmetrical movement Motor Function: Left Arm: Normal Motor Function: Right Arm: Normal (extends arm 90 (or 45) degrees for 10 seconds without drift Motor Function: Left Leg: Normal (extends leg 30 degrees for 5 seconds without drift) Motor Function: Right Leg: Normal (extends leg 30 degrees for 5 seconds without drift) Limb Ataxia: No ataxia Sensory(Use pinprick test arms,legs,trunk,face/side to side): Normal Best language (Describe picture, name items, read sentences): No Aphasia Dysarthria (read several words): Normal articulation Extinction and Inattention: No abnormality - Total Score NIH Stroke Scale Score: 0 <Ron Howell - Last Filed: 03/02/17 01:00> tPA Exclusion Checklist 0-3hr - Time Elapsed Date last known well: 03/01/17 Time last known well: 10:20 Elaspsed time: Day(s) and 14 Hour(s) and 39 Minutes - Thrombolytic Therapy Candidate Is the patient eligible for Thrombolytic Therapy?: No - Exclusion Criteria 0-3hr SBP greater than 185 or DBP greater than 110mmHg despite tx: No Recent IC/spinal surgery,head trauma or stroke w/in last 3mo: No Hx of previous IC hemorrhage, IC neoplasm, AVM or aneurysm: No Active internal bleeding: No Blding diathesis(low plt ct, inc PTT,INR>1.7 or use of NOAC): No Symptoms suggest subarachnoid hemorrhage: No CT demonstrates multilobar infarct(>1/3 cerebral hemiphere): No Arterial puncture at noncompressible site in previous 7 days: No Blood glucose concentration less than 50mg/dL (2.7mmol/L): No - Relative Exclusion Criteria 0-3h Life expectancy <1yr/severe co-morbid illness/GENERAL SERVICE OFFICER on admit: No : No Patient/family refused: No Rapid improvement: No Stroke severity too mild: Yes Recent acute SC (w/in previous 3 months): No Seizure at onset with postictal residual neuro impairments: No Major surgery or serious trauma w/in previous 14 days: No Recent GI or hemorrhage (w/in previous 21 days): No - Ineligibility reason(s) Reasons No tPA given: See reason(s) noted above <Ron Howell - Last Filed: 03/02/17 01:00> Critical Care Time/MDM Note - Medical Decision Making Note: 03/01/17 23:50 Dr. Howell: The scribe's documentation has been prepared under my direction and personally reviewed by me in its entirery. I confirm that the note above accurately reflects all work, treatment, procedures, and medical decision making performed by me. 03/02/17 00:[address] Jennifer Woodson. She accepts pt for admission to inpt stroke unit <Ron Howell - Last Filed: 03/02/17 01:00> Discharge Disposition <Emily Canseco - Last Filed: 03/01/17 23:30> - Discharge Dispostion Last Admission D/C Date: 07/15/10 Admit: Yes <Ron Howell - Last Filed: 03/02/17 01:00> - Diagnosis TIA (transient ischemic attack) Qualifiers: Transient cerebral ischemia type: unspecified Qualified Code(s): G45.9 - Transient cerebral ischemic attack, unspecified Attestations - Attestations 03/01/17 23:35 Documentation prepared by Emily Canseco, acting as medical imaging technician for Ron Howell MD. <Emily aCnseco - Last Filed: 03/01/17 23:30>
[2017-03-01 23:29] LABS: BASOPHIL 0.9 % (0-2.0); EOSINOPHIL 2.4 % (0-4.5); MCH 30.9 pg (25.7-33.7); MCHC 33.4 g/dl (32.0-36.0); MEAN CELL VOLUME 92.4 fl (80-96); MEAN PLT VOLUME 9.3 fl (7.5-11.1); NEUTROPHILS 60.1 % (42.8-82.8); PLATELET COUNT 241 K/MM3 (134-434); RDW 13.5 % (11.6-15.6); WHITE BLOOD COUNT 4.2 K/mm3 (4.0-10.0)
[2017-03-01 23:41] LABS: URINE APPEARANCE CLEAR; URINE BILIRUBIN NEGATIVE (NEGATIVE); URINE BLOOD NEGATIVE (NEGATIVE); URINE COLOR COLORLESS; URINE GLUCOSE (UA) NEGATIVE (NEGATIVE); URINE KETONE NEGATIVE (NEGATIVE); URINE NITRITE NEGATIVE (NEGATIVE); URINE PROTEIN NEGATIVE (NEGATIVE); URINE UROBILINOGEN NEGATIVE mg/dL (0.2-1.0)
[2017-03-01 23:44] LABS: URINE LEUK ESTERASE 3+ (NEGATIVE)
[2017-03-01 23:46] LABS: INR 1.07 (0.82-1.09); PROTHROMBIN TIME (PATIENT) 11.8 SEC (9.98-11.88)
[2017-03-01 23:51] LABS: ALBUMIN 3.7 g/dl (3.4-5.0); ANION GAP 9 (8-16); BILIRUBIN,TOTAL 0.5 mg/dL (0.2-1.0); CALCIUM 8.7 mg/dL (8.5-10.1); CHOLESTEROL 211 mg/dL (50-200); CO2 29 mmol/L (21-32); CREATININE 0.8 mg/dL (0.55-1.02); GLUCOSE,RANDOM 113 mg/dL (74-106); SGOT/AST 33 U/L (15-37); SGPT/ALT 41 U/L (12-78)
[2017-03-01 23:54] LABS: ALK PHOS 41 U/L (45-117); TROPONIN I < 0.02 ng/ml (0.00-0.05)
[2017-03-02] MEDS: SODIUM CHLORIDE 1,000 ML IV SCH (00:08)
[2017-03-02 00:24] LABS: URINE RBC 1 /hpf (0-3); URINE WBC 47 /hpf (3-5)
[2017-03-02] MEDS ORDERED: ACETAMINOPHEN WITH CODEINE 300MG/30MG TABLET PO PRN (02:44)
[2017-03-02 03:41] LABS: LDL CHOLESTEROL (ONLY SJRH) 137 mg/dL (5-100)
[2017-03-02] MEDS ORDERED: clonazePAM 0.5 MG TABLET PO PRN (06:15)
[2017-03-02] MEDS: MECLIZINE HCL 25 MG TABLET (FP) PO SCH ×3 (06:45→21:52)
[2017-03-02 07:18] LABS: BASOPHIL 1.1 % (0-2.0); EOSINOPHIL 3.5 % (0-4.5); MCH 31.7 pg (25.7-33.7); MCHC 34.4 g/dl (32.0-36.0); MEAN PLT VOLUME 9.4 fl (7.5-11.1); NEUTROPHILS 52.6 % (42.8-82.8); PLATELET COUNT 219 K/MM3 (134-434); RDW 13.5 % (11.6-15.6)
[2017-03-02 07:45] LABS: ALBUMIN 3.3 g/dl (3.4-5.0); ALK PHOS 38 U/L (45-117); ANION GAP 6 (8-16); BILIRUBIN,TOTAL 0.7 mg/dL (0.2-1.0); CALCIUM 8.6 mg/dL (8.5-10.1); CO2 30 mmol/L (21-32); CREATININE 0.7 mg/dL (0.55-1.02); GLUCOSE,RANDOM 96 mg/dL (74-106); SGOT/AST 29 U/L (15-37); SGPT/ALT 36 U/L (12-78); TOT PROT 6.4 g/dl (6.4-8.2)
--- NOTE | 2017-03-02 08:36 | CON.CARD ---
Consult Consult Specialty:: Cardiology Referred by:: Dr. Woodson Reason for Consultation:: Possible TIA - History of Present Illness Chief Complaint: Difficulty speaking during chemo History of Present Illness: 76F with breast Ca on chemo, HTN, HL developed difficulty speaking during chemo. Denies visual changes. + Bilateral LE weakness, now mostly resolved. Denies chest pain or SOB. Reports several episodes of "palpitations" during chemo the last few weeks. No syncope or dizziness. No edema, no PND. No prior cardiac hx. Head CT negative, awaits MRI. Tele thus far NSR. - History Source History Provided By: Patient Limitations to Obtaining History: No Limitations - Past Medical History [employer]: Yes: Vertigo Cardio/Vascular: Yes: HTN, Hyperlipdemia Heme/Onc: Yes: Cancer - Past Surgical History Past Surgical History: Yes: Cholecystectomy, Hysterectomy Additional Surgical History: Carpal Tunnel surgery - Alcohol/Substance Use Hx Alcohol Use: No - Smoking History Smoking history: Never smoked Have you smoked in the past 12 months: No Aproximately how many cigarettes per day: 0 - Social History Usual Living Arrangement: Alone ADL: Independent History of Recent Travel: No Home Medications - Allergies Allergies/Adverse Reactions: Allergies Allergy/AdvReac Type Severity Reaction Status Date / Time Penicillins Allergy Severe Rash Verified 03/01/17 22:39 - Home Medications Home Medications: Ambulatory Orders Aspirin Coated [Ecotrin -] 81 mg PO DAILY #0 tablet.ec 02/14/12 Atorvastatin Ca [Lipitor] 10 mg PO HS #0 tablet 02/14/12 Meclizine HCl 25 mg PO TID #0 tablet 02/14/12 Amlodipine Besylate 10 mg PO DAILY 07/07/15 Cholecalciferol (Vitamin D3) [Vitamin D3] 2,000 unit PO DAILY 08/27/15 Clonazepam 0.5 mg PO PRN PRN 08/27/15 Lisinopril/Hydrochlorothiazide [Lisinopril-Hctz 20-25 mg Tab] 1 each PO DAILY Acetaminophen W/ Codeine #3 [Tylenol # 3 -] 1 tab PO Q4H #30 tablet MDD 6 Family Disease History - Family Disease History Family Disease History: Heart Disease: Mother (CAD, unknown age) Review of Systems Findings/Remarks: see HPI - Review of Systems Constitutional: reports: Weakness Eyes: reports: No Symptoms HENT: reports: No Symptoms Cardiovascular: reports: Palpitations Respiratory: reports: No Symptoms Gastrointestinal: reports: No Symptoms Genitourinary: reports: No Symptoms Breasts: reports: No Symptoms Reported Musculoskeletal: reports: No Symptoms Integumentary: reports: No Symptoms Neurological: reports: Change in Speech Endocrine: reports: No Symptoms Hematology/Lymphatic: reports: No Symptoms Psychiatric: reports: No Symptoms - Risk Factors Known Risk Factors: Yes: Hypercholesterolemia, Hypertension Vital Signs: Vital Signs Temperature 98.1 F 03/02/17 05:40 Pulse Rate 70 03/02/17 05:40 Respiratory Rate 20 03/02/17 05:40 Blood Pressure 128/80 03/02/17 05:40 O2 Sat by Pulse Oximetry (%) 99 03/02/17 02:55 Constitutional: Yes: No Distress, Calm Eyes: Yes: Conjunctiva Clear, EOM Intact HENT: Yes: Atraumatic, Normocephalic Neck: Yes: Supple, Trachea Midline Respiratory: Yes: Regular, CTA Bilaterally Gastrointestinal: Yes: Normal Bowel Sounds, Soft Cardiovascular: Yes: Regular Rate and Rhythm JVD: No Carotid Bruit: No PMI: Non-Displaced Heart Sounds: Yes: S1, S2 (no murmurs) Edema: No Peripheral Pulses WNL: Yes Neurological: Yes: Alert, Oriented ...Motor Strength: WNL - Other Data Labs, Other Data: CBC, BMP 03/02/17 05:35 03/02/17 05:35 INR, PTT INR 1.07 (0.82-1.09) 03/01/17 23:19 Laboratory Tests 03/01/17 03/01/17 03/02/17 23:19 23:19 05:35 WBC 4.0 Hgb 11.9 Plt Count 219 INR 1.07 Sodium Potassium BUN Creatinine Total Bilirubin AST ALT Alkaline Phosphatase Albumin Total LDL Cholesterol 137 H 03/02/17 05:35 WBC Hgb Plt Count INR Sodium 142 Potassium 4.0 BUN 15 D Creatinine 0.7 Total Bilirubin 0.7 D AST 29 ALT 36 Alkaline Phosphatase 38 L Albumin 3.3 L Total LDL Cholesterol NSR, no acute ST changes Echo: Pending Imaging - Results X-ray: Image Reviewed EKG: Image Reviewed Problem List - Problems (1) TIA (transient ischemic attack) Assessment/Plan: Vs. Side effect of chemotherapy Code(s): G45.9 - TRANSIENT CEREBRAL ISCHEMIC ATTACK, UNSPECIFIED Qualifiers: Transient cerebral ischemia type: unspecified Qualified Code(s): G45.9 - Transient cerebral ischemic attack, unspecified (2) Cancer Assessment/Plan: Breast Ca Code(s): C80.1 - MALIGNANT (PRIMARY) NEOPLASM, UNSPECIFIED (3) Palpitations Code(s): R00.2 - PALPITATIONS Assessment/Plan IMP: Transient neurological symptoms while receiving chemo: med side effect vs TIA Chronic HTN Recent Palpitations REC: At this stage, suspect side effect of chemo Rx rather than TIA given the wide distribution of her symptoms. However, prudent to proceed w/ standard work up in light of her hx of HTN and recent palpitations. Would like to reasonably exclude occult PAF. 1. Echo and Carotid US pending. 2. Continue telemetry for at least another 24 hours and then plan for extended outpatient holter if needed. 3. MRI brain. 4. Would give ASA 81mg daily. Further reccs pending above diagnostic studies. Thank you.
--- NOTE | 2017-03-02 09:13 | EKG ---
Test Reason : Blood Pressure : / mmHG Vent. Rate : 078 BPM Atrial Rate : 078 BPM P-R Int : 146 ms QRS Dur : 076 ms QT Int : 374 ms P-R-T Axes : 040 -14 012 degrees QTc Int : 426 ms SINUS RHYTHM WITH OCCASIONAL PREMATURE VENTRICULAR COMPLEXES VOLTAGE CRITERIA FOR LEFT VENTRICULAR HYPERTROPHY ABNORMAL ECG WHEN COMPARED WITH ECG OF 04-OCT-2016 15:37, PREMATURE VENTRICULAR COMPLEXES ARE NOW PRESENT Confirmed by APOLLO CONROY MD ([id number]) on 03/02/2017 9:13:02 AM Referred By: Confirmed By:APOLLO CONROY MD
[2017-03-02] MEDS ORDERED: PATIENT'S OWN MEDICATION (NON-FORMULARY) (Lisinopril/Hydrochlorothiazide [Lisinopril-Hctz PO SCH (10:00)
[2017-03-02] MEDS: ASPIRIN COATED 81 MG TABLET.EC PO SCH (10:50)
[2017-03-02] MEDS: amLODIPine BESYLATE 10 MG TABLET (FP) PO SCH (10:50)
[2017-03-02] MEDS: LISINOPRIL 20 MG TABLET (FP) PO SCH (10:50)
[2017-03-02] MEDS: HEPARIN NA (PORCINE) 5,000 UNITS/ML 1ML VIAL SQ SCH ×2 (10:50→21:52)
[2017-03-02] MEDS: HYDROCHLOROTHIAZIDE 25 MG TABLET (FP) PO SCH (10:50)
--- NOTE | 2017-03-02 14:28 | HP ---
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 Cardiovascular: Yes: HTN, Hyperlipdemia Heme/Onc: Yes: Cancer - Past Surgical History Past Surgical History: Yes: Cholecystectomy, Hysterectomy - Smoking History Smoking history: Never smoked Have you smoked in the past 12 months: No Aproximately how many cigarettes per day: 0 - Alcohol/Substance Use Hx Alcohol Use: No - Social History ADL: Independent History of Recent Travel: No Home Medications - Allergies Allergies/Adverse Reactions: Allergies Allergy/AdvReac Type Severity Reaction Status Date / Time Penicillins Allergy Severe Rash Verified 03/01/17 22:39 - Home Medications Home Medications: Ambulatory Orders Aspirin Coated [Ecotrin -] 81 mg PO DAILY #0 tablet.ec 02/14/12 Atorvastatin Ca [Lipitor] 10 mg PO HS #0 tablet 02/14/12 Meclizine HCl 25 mg PO TID #0 tablet 02/14/12 Amlodipine Besylate 10 mg PO DAILY 07/07/15 Cholecalciferol (Vitamin D3) [Vitamin D3] 2,000 unit PO DAILY 08/27/15 Clonazepam 0.5 mg PO PRN PRN 08/27/15 Lisinopril/Hydrochlorothiazide [Lisinopril-Hctz 20-25 mg Tab] 1 each PO DAILY Acetaminophen W/ Codeine #3 [Tylenol # 3 -] 1 tab PO Q4H #30 tablet MDD 6 Family Disease History - Family Disease History Family Disease History: Heart Disease: Mother (CAD, unknown age) Physical Examination Vital Signs: Vital Signs Temperature 97.7 F 03/02/17 08:40 Pulse Rate 69 03/02/17 08:40 Respiratory Rate 20 03/02/17 08:40 Blood Pressure 141/80 03/02/17 08:40 O2 Sat by Pulse Oximetry (%) 97 03/02/17 08:00 Labs: CBC, BMP 03/02/17 05:35 03/02/17 05:35
[2017-03-02] MEDS: ATORVASTATIN CA 10 MG TABLET (FP) PO SCH (21:52)
[2017-03-03] MEDS: SODIUM CHLORIDE 1,000 ML IV SCH (04:00)
[2017-03-03] MEDS: MECLIZINE HCL 25 MG TABLET (FP) PO SCH ×2 (05:38→05:40)
--- NOTE | 2017-03-03 08:02 | PN ---
Progress Note, Physician History of Present Illness: 76F with breast Ca on chemo, HTN, HL developed difficulty speaking during chemo. Denies visual changes. + Bilateral LE weakness, now mostly resolved. Denies chest pain or SOB. Reports several episodes of "palpitations" during chemo the last few weeks. - Current Medication List Current Medications: Active Medications Acetaminophen/Codeine Phosphate (Tylenol # 3 -) 1 tab PO Q4H PRN PRN Reason: PAIN Amlodipine Besylate (Norvasc -) 10 mg PO DAILY [facility] Last Admin: 03/02/17 10:50 Dose: 10 mg Aspirin (Ecotrin -) 81 mg PO DAILY [facility] Last Admin: 03/02/17 10:50 Dose: 81 mg Atorvastatin Calcium (Lipitor -) 10 mg PO HS [facility] Last Admin: 03/02/17 21:52 Dose: 10 mg Clonazepam (Klonopin -) 0.5 mg PO BID PRN Heparin Sodium (Porcine) (Heparin -) 5,000 unit SQ BID [facility] Last Admin: 03/02/17 21:52 Dose: 5,000 unit Hydrochlorothiazide (Hctz -) 25 mg PO DAILY [facility] Last Admin: 03/02/17 10:50 Dose: 25 mg Sodium Chloride (Normal Saline -) 1,000 mls @ 42 mls/hr IV ASDIR [facility] Last Admin: 03/03/17 04:00 Dose: 42 mls/hr Lisinopril (Prinivil) 20 mg PO DAILY [facility] Last Admin: 03/02/17 10:50 Dose: 20 mg Meclizine HCl (Antivert -) 25 mg PO TID [facility] Last Admin: 03/03/17 05:40 Dose: Not Given - Objective Vital Signs: Vital Signs Temperature 98.4 F 03/03/17 05:13 Pulse Rate 72 03/03/17 05:13 Respiratory Rate 18 03/03/17 05:13 Blood Pressure 107/74 03/03/17 05:13 O2 Sat by Pulse Oximetry (%) 95 03/03/17 05:13 Eyes: Yes: WNL, Conjunctiva Clear, EOM Intact HENT: Yes: WNL, Atraumatic, Normocephalic Neck: Yes: WNL, Supple, Trachea Midline Cardiovascular: Yes: WNL, Regular Rate and Rhythm Respiratory: Yes: WNL, Regular, CTA Bilaterally Gastrointestinal: Yes: WNL, Normal Bowel Sounds Genitourinary: Yes: WNL Musculoskeletal: Yes: WNL Extremities: Yes: WNL Edema: No Integumentary: Yes: WNL Neurological: Yes: WNL, Alert, Oriented ...Motor Strength: WNL Psychiatric: Yes: WNL Labs: CBC, BMP 03/02/17 05:35 03/02/17 05:35 INR, PTT INR 1.07 (0.82-1.09) 03/01/17 23:19 Assessment/Plan - Problems (1) TIA (transient ischemic attack) Assessment/Plan: Vs. Side effect of chemotherapy Code(s): G45.9 - TRANSIENT CEREBRAL ISCHEMIC ATTACK, UNSPECIFIED Qualifiers: Transient cerebral ischemia type: unspecified Qualified Code(s): G45.9 - Transient cerebral ischemic attack, unspecified (2) Cancer Assessment/Plan: Breast Ca Code(s): C80.1 - MALIGNANT (PRIMARY) NEOPLASM, UNSPECIFIED (3) Palpitations Code(s): R00.2 - PALPITATIONS Assessment/Plan IMP: Transient neurological symptoms while receiving chemo: med side effect vs TIA Chronic HTN Recent Palpitations echo wnl REC: 1. Carotid US pending. 2. Continue telemetry for at least another 24 hours and then plan for extended outpatient holter if needed. 3. MRI brain. 4. Would give ASA 81mg daily.
[2017-03-03] MEDS: HYDROCHLOROTHIAZIDE 25 MG TABLET (FP) PO SCH (09:30)
[2017-03-03] MEDS: HEPARIN NA (PORCINE) 5,000 UNITS/ML 1ML VIAL SQ SCH ×2 (09:30→22:50)
[2017-03-03] MEDS: LISINOPRIL 20 MG TABLET (FP) PO SCH (09:30)
[2017-03-03] MEDS: amLODIPine BESYLATE 10 MG TABLET (FP) PO SCH (09:30)
[2017-03-03] MEDS: ASPIRIN COATED 81 MG TABLET.EC PO SCH (09:30)
--- NOTE | 2017-03-03 11:10 | CONSULT ---
Consult - text type - Consultation Consultation Note: NEUROLOGY CONSULTATION is greatly appreciated: This 76 yo RH woman with h/o HTN, Chol has had episodic vertigo in the past but no episodes x 1 1/2 years. On ASA, atorvastatin, amlodipine, lisinopril, HCTZ and meclizine, tylenol 3 and clonazepam when needed. Recent Dx of Right breast cancer (Sep 2016). Recently completed her 4th course of Chemo Rx last Sunday. Had experienced palpitations with prior ChemoRx. On Sunday, while doing her Rosaries she developed numbness and tingling involving her hands (R>L) which crept up her arms and waxed and waned. Then, she experienced 3 brief episodes when she "couldn't say the Rosary" each lasting a few seconds and resolving. The arm paresthesiae took longer to resolve but are now gone> 24 hrs. No headache, vertigo, change in gait, etc. Patient feels "normal." CT of head; MRI of Brain; MR Angio of Brain (all reviewed): Normal Carotid duplex: No significant stenosis. JURGEN: No head trauma; no bruits; cor:reg NEURO: MS/speech: Normal CN II-XII: Normal Motor: No drift or tremor. Normal strength, tone, bulk,and reflexes. Toes downgoing Coord: No FTN dystaxia Sensory: Normal. Romberg neg Gait: Slight shufle. IMP: Essentially normal exam. Doubt a vascular etiology since speech "arrest" was too short and paresthesia were bilateral. Rather, suspect these were anxiety-related (panic attacks) after chemoRx. Suggest: Continue clonazepam (.5 mg q 12 hrs) Investigate for underlying depression. D/C meclizine (only effective during attacks and has no prophylactic benefits). Pt is NOT taking at home. Neuro f/u as out patient if symptoms recur. Thank you very much, Chau Trimble MD
--- NOTE | 2017-03-03 11:39 | PN ---
Progress Note (short form) - Note Progress Note: Progress Note: Seen in follow up. No new complaints. Reports some tingling/numbness hands. Meds reviewed. Current Medications Generic Name Dose Route Start Last Admin Trade Name Freq PRN Reason Stop Dose Admin Acetaminophen/Codeine Phosphate 1 tab 03/02/17 02:44 Tylenol # 3 - PO Q4H PRN PAIN Amlodipine Besylate 10 mg 03/02/17 10:00 03/03/17 09:30 Norvasc - PO 10 mg DAILY KATHY Administration Aspirin 81 mg 03/02/17 10:00 03/03/17 09:30 Ecotrin - PO 81 mg DAILY KATHY Administration Atorvastatin Calcium 10 mg 03/02/17 22:00 03/02/17 21:52 Lipitor - PO 10 mg HS KATHY Administration Clonazepam 0.5 mg 03/02/17 06:15 Klonopin - PO BID PRN Heparin Sodium (Porcine) 5,000 unit 03/02/17 10:00 03/03/17 09:30 Heparin - SQ 5,000 unit BID KATHY Administration Hydrochlorothiazide 25 mg 03/02/17 10:00 03/03/17 09:30 Hctz - PO 25 mg DAILY KATHY Administration Sodium Chloride 1,000 mls @ 42 mls/hr 03/01/17 23:15 03/03/17 04:00 Normal Saline - IV 42 mls/hr ASDIR KATHY Administration Lisinopril 20 mg 03/02/17 10:00 03/03/17 09:30 Prinivil PO 20 mg DAILY KATHY Administration Meclizine HCl 25 mg 03/02/17 06:00 03/03/17 05:40 Antivert - PO Not Given TID KATHY On exam: Last Vital Signs Temp Pulse Resp BP Pulse Ox 97.5 F L 67 18 139/78 99 03/03/17 10:00 03/03/17 10:00 03/03/17 10:00 03/03/17 10:00 03/03/17 10:03 General: In no acute distress. Extremities: No pallor or icterus, no pedal edema. Chest:good air entry bilaterally, . Abdomen: Soft, no organomegaly, no masses. Neuro: Alert, oriented, non-focal. CVS: Normal sinus rhythm, S1, S2, no gallop or murmur. CBC, BMP 03/02/17 05:35 03/02/17 05:35 Assessment. Metastatic breast cancer, receiving palliative chemotherapy as outpatient ( weekly Taxol), admitted for investigation of non-specific neurological symptomatology, occurring shortly after chemotherapy. Ongoing cardiology (Holter monitoring) and neurology evaluation (normal CT non- contrast, read of MRI brain pending). Will await results of above workup.
[2017-03-03] MEDS ORDERED: PT OWN MED DRAWER 7, Y5N ONE (20:23)
[2017-03-03] MEDS: ATORVASTATIN CA 10 MG TABLET (FP) PO SCH (22:50)
--- NOTE | 2017-03-03 23:42 | PN ---
Progress Note, Physician - Current Medication List Current Medications: Active Medications Acetaminophen/Codeine Phosphate (Tylenol # 3 -) 1 tab PO Q4H PRN PRN Reason: PAIN Amlodipine Besylate (Norvasc -) 10 mg PO DAILY [facility] Last Admin: 03/03/17 09:30 Dose: 10 mg Aspirin (Ecotrin -) 81 mg PO DAILY [facility] Last Admin: 03/03/17 09:30 Dose: 81 mg Atorvastatin Calcium (Lipitor -) 10 mg PO HS [facility] Last Admin: 03/03/17 22:50 Dose: 10 mg Clonazepam (Klonopin -) 0.5 mg PO BID PRN Heparin Sodium (Porcine) (Heparin -) 5,000 unit SQ BID [facility] Last Admin: 03/03/17 22:50 Dose: 5,000 unit Hydrochlorothiazide (Hctz -) 25 mg PO DAILY [facility] Last Admin: 03/03/17 09:30 Dose: 25 mg Sodium Chloride (Normal Saline -) 1,000 mls @ 42 mls/hr IV ASDIR [facility] Last Admin: 03/03/17 04:00 Dose: 42 mls/hr Lisinopril (Prinivil) 20 mg PO DAILY [facility] Last Admin: 03/03/17 09:30 Dose: 20 mg - Objective Vital Signs: Vital Signs Temperature 99.0 F 03/03/17 18:00 Pulse Rate 80 03/03/17 18:00 Respiratory Rate 20 03/03/17 18:00 Blood Pressure 105/59 03/03/17 18:00 O2 Sat by Pulse Oximetry (%) 99 03/03/17 10:03 Labs: CBC, BMP 03/02/17 05:35 03/02/17 05:35 INR, PTT INR 1.07 (0.82-1.09) 03/01/17 23:19
[2017-03-04] MEDS: HEPARIN NA (PORCINE) 5,000 UNITS/ML 1ML VIAL SQ SCH (10:45)
[2017-03-04] MEDS: amLODIPine BESYLATE 10 MG TABLET (FP) PO SCH (10:45)
[2017-03-04] MEDS: LISINOPRIL 20 MG TABLET (FP) PO SCH (10:45)
[2017-03-04] MEDS: ASPIRIN COATED 81 MG TABLET.EC PO SCH (10:45)
[2017-03-04] MEDS: HYDROCHLOROTHIAZIDE 25 MG TABLET (FP) PO SCH (10:45)
--- NOTE | 2017-03-04 12:02 | PN ---
Progress Note, Physician History of Present Illness: 76F with breast Ca on chemo, HTN, HL developed difficulty speaking during chemo. Denies visual changes. + Bilateral LE weakness, now mostly resolved. Denies chest pain or SOB. Reports several episodes of "palpitations" during chemo the last few weeks. - Current Medication List Current Medications: Active Medications Acetaminophen/Codeine Phosphate (Tylenol # 3 -) 1 tab PO Q4H PRN PRN Reason: PAIN Amlodipine Besylate (Norvasc -) 10 mg PO DAILY [facility] Last Admin: 03/04/17 10:45 Dose: 10 mg Aspirin (Ecotrin -) 81 mg PO DAILY [facility] Last Admin: 03/04/17 10:45 Dose: 81 mg Atorvastatin Calcium (Lipitor -) 10 mg PO HS [facility] Last Admin: 03/03/17 22:50 Dose: 10 mg Clonazepam (Klonopin -) 0.5 mg PO BID PRN Heparin Sodium (Porcine) (Heparin -) 5,000 unit SQ BID [facility] Last Admin: 03/04/17 10:45 Dose: 5,000 unit Hydrochlorothiazide (Hctz -) 25 mg PO DAILY [facility] Last Admin: 03/04/17 10:45 Dose: 25 mg Sodium Chloride (Normal Saline -) 1,000 mls @ 42 mls/hr IV ASDIR [facility] Last Admin: 03/03/17 04:00 Dose: 42 mls/hr Lisinopril (Prinivil) 20 mg PO DAILY [facility] Last Admin: 03/04/17 10:45 Dose: 20 mg - Objective Vital Signs: Vital Signs Temperature 98.7 F 03/04/17 02:00 Pulse Rate 81 03/04/17 06:00 Respiratory Rate 20 03/04/17 06:00 Blood Pressure 116/75 03/04/17 06:00 O2 Sat by Pulse Oximetry (%) 99 03/03/17 10:03 Eyes: Yes: WNL, Conjunctiva Clear, EOM Intact HENT: Yes: WNL, Atraumatic, Normocephalic Neck: Yes: WNL, Supple, Trachea Midline Cardiovascular: Yes: WNL, Regular Rate and Rhythm Respiratory: Yes: WNL, Regular, CTA Bilaterally Gastrointestinal: Yes: WNL, Normal Bowel Sounds Genitourinary: Yes: WNL Musculoskeletal: Yes: WNL Extremities: Yes: WNL Edema: No Integumentary: Yes: WNL Neurological: Yes: WNL, Alert, Oriented ...Motor Strength: WNL Psychiatric: Yes: WNL Labs: CBC, BMP 03/02/17 05:35 03/02/17 05:35 INR, PTT INR 1.07 (0.82-1.09) 03/01/17 23:19 Assessment/Plan - Problems (1) TIA (transient ischemic attack) Assessment/Plan: Vs. Side effect of chemotherapy Code(s): G45.9 - TRANSIENT CEREBRAL ISCHEMIC ATTACK, UNSPECIFIED Qualifiers: Transient cerebral ischemia type: unspecified Qualified Code(s): G45.9 - Transient cerebral ischemic attack, unspecified (2) Cancer Assessment/Plan: Breast Ca Code(s): C80.1 - MALIGNANT (PRIMARY) NEOPLASM, UNSPECIFIED (3) Palpitations Code(s): R00.2 - PALPITATIONS Assessment/Plan IMP: Transient neurological symptoms while receiving chemo: med side effect vs TIA Chronic HTN Recent Palpitations echo wnl REC: 1. Carotid US pending. 2. Continue telemetry. 3. MRI brain. 4. Would give ASA 81mg daily.
--- NOTE | 2017-03-04 12:20 | PN ---
Progress Note (short form) - Note Progress Note: Progress Note: Seen in follow up. No new complaints. Mild ongoing tingling/numbness hands, otherwise well. Meds reviewed. Current Medications Generic Name Dose Route Start Last Admin Trade Name Freq PRN Reason Stop Dose Admin Acetaminophen/Codeine Phosphate 1 tab 03/02/17 02:44 Tylenol # 3 - PO Q4H PRN PAIN Amlodipine Besylate 10 mg 03/02/17 10:00 03/04/17 10:45 Norvasc - PO 10 mg DAILY KATHY Administration Aspirin 81 mg 03/02/17 10:00 03/04/17 10:45 Ecotrin - PO 81 mg DAILY KATHY Administration Atorvastatin Calcium 10 mg 03/02/17 22:00 03/03/17 22:50 Lipitor - PO 10 mg HS KATHY Administration Clonazepam 0.5 mg 03/02/17 06:15 Klonopin - PO BID PRN Heparin Sodium (Porcine) 5,000 unit 03/02/17 10:00 03/04/17 10:45 Heparin - SQ 5,000 unit BID KATHY Administration Hydrochlorothiazide 25 mg 03/02/17 10:00 03/04/17 10:45 Hctz - PO 25 mg DAILY KATHY Administration Sodium Chloride 1,000 mls @ 42 mls/hr 03/01/17 23:15 03/03/17 04:00 Normal Saline - IV 42 mls/hr ASDIR KATHY Administration Lisinopril 20 mg 03/02/17 10:00 03/04/17 10:45 Prinivil PO 20 mg DAILY KATHY Administration On exam: Last Vital Signs Temp Pulse Resp BP Pulse Ox 98.7 F 81 20 116/75 99 03/04/17 02:00 03/04/17 06:00 03/04/17 06:00 03/04/17 06:00 03/03/17 10:03 General: In no acute distress. Extremities: No pallor or icterus, no pedal edema. Chest:good air entry bilaterally, . Abdomen: Soft, no organomegaly, no masses. Neuro: Alert, oriented, non-focal. CVS: Normal sinus rhythm, S1, S2, no gallop or murmur. Assessment. Metastatic breast cancer, receiving palliative chemotherapy as outpatient ( weekly Taxol), admitted for investigation of non-specific neurological symptomatology, occurring shortly after chemotherapy. Ongoing cardiology (Holter monitoring) and neurology evaluation (normal CT non- contrast, read of MRI brain pending). Will await results of above workup.
[2017-03-04 14:20] VITALS: BP 126/75; PULSE 84; TEMP 98.1
== END 2017-03-04 15:07 | disposition home or self-care (01) ==
LOC: JER 22:37 → INTOOBSV 03-02 00:30 → JERBED 03-02 00:30 → J4W 03-02 02:38 → OBSVTOIN 03-02 02:43 → INTOOBSV 03-02 02:43
PROVIDERS: ADMIT Internal Medicine; ATTEND Internal Medicine
PROC: 3E0337Z Introduction of Electrolytic and Water Balance Substance into Peripheral Vein, Percutaneous Approach (ICD-10-PCS; principal; 2017-03-02)
DX: G45.9 Transient cerebral ischemic attack, unspecified (principal); I10 Essential (primary) hypertension; E78.5 Hyperlipidemia, unspecified; C50.911 Malignant neoplasm of unspecified site of right female breast; Z92.21 Personal history of antineoplastic chemotherapy; R00.2 Palpitations; Z90.710 Acquired absence of both cervix and uterus; Z90.49 Acquired absence of other specified parts of digestive tract; Z88.0 Allergy status to penicillin; Z79.82 Long term (current) use of aspirin
CPT/HCPCS: 36415; 70450-TC; 70544-TC; 70553-TC; 71010-TC; 80053; 81003; 81015; 82465; 82550; 83718; 83721; 84478; 84484; 85025; 85610; 86850; 86900; 86901; 93005; 93010; 93306-TC; 93880-TC; 97116-GP; 97161-GP; 99285-25; A9576; G0378; J1644

== ENCOUNTER 2017-03-05 07:25 | Day surgery (SDC) | payer OTHER ==
[2017-03-05] MEDS ORDERED: SODIUM CHLORIDE 250 ML IV ONE ×2 (08:00→10:30)
[2017-03-05] MEDS ORDERED: ONDANSETRON IVPB ONE (08:30)
[2017-03-05] MEDS ORDERED: DIPHENHYDRAMINE IVPB ONE (08:30)
[2017-03-05] MEDS ORDERED: RANITIDINE IVPB ONE (08:30)
[2017-03-05] MEDS ORDERED: [UNRECOGNIZED DRUG - OTHER] IVPB ONE (08:30)
[2017-03-05] MEDS ORDERED: DEXAMETHASONE INJECTION 10 MG in SODIUM CHLORIDE 50 ML IVPB ONE (08:30)
[2017-03-05] MEDS ORDERED: PACLITAXEL 114 MG in SODIUM CHLORIDE 250 ML IVPB ONE (09:00)
[2017-03-05] MEDS ORDERED: SODIUM CHLORIDE IVPB ONE (10:00)
[2017-03-05] MEDS ORDERED: TRASTUZUMAB IVPB ONE (10:00)
[2017-03-05 10:38] LABS: BASOPHIL 1.4 % (0-2.0); EOSINOPHIL 3.6 % (0-4.5); MCH 31.5 pg (25.7-33.7); MCHC 33.7 g/dl (32.0-36.0); MEAN CELL VOLUME 93.4 fl (80-96); MEAN PLT VOLUME 9.1 fl (7.5-11.1); NEUTROPHILS 58.6 % (42.8-82.8); PLATELET COUNT 252 K/MM3 (134-434); RDW 13.9 % (11.6-15.6); WHITE BLOOD COUNT 4.5 K/mm3 (4.0-10.0)
[2017-03-05 11:04] LABS: ALBUMIN 3.8 g/dl (3.4-5.0); ALK PHOS 51 U/L (45-117); ANION GAP 8 (8-16); BILIRUBIN,DIRECT 0.1 mg/dL (0.0-0.2); BILIRUBIN,TOTAL 0.4 mg/dL (0.2-1.0); CALCIUM 9.2 mg/dL (8.5-10.1); CO2 29 mmol/L (21-32); CREATININE 0.9 mg/dL (0.55-1.02); GLUCOSE,RANDOM 109 mg/dL (74-106); MAGNESIUM 2.1 mg/dL (1.8-2.4); SGOT/AST 38 U/L (15-37); SGPT/ALT 44 U/L (12-78); TOT PROT 7.7 g/dl (6.4-8.2)
[2017-03-05 12:13] VITALS: TEMP 98.7
[2017-03-05] MEDS ORDERED: ALTEPLASE 2 MG VIAL CVP ONE (14:00)
[2017-03-05] MEDS ORDERED: PORTA CATH FLUSH 10 ML IVPUSH ONE (19:38)
[2017-03-05 20:50] VITALS: BP 117/70; PULSE 89
== END 2017-03-05 08:30 | disposition home or self-care (01) ==
LOC: JONCCHEMO 07:25 → J7W 11:52
PROVIDERS: ATTEND Internal Medicine Hematology & Oncology
PROC: 3E04305 Introduction of Other Antineoplastic into Central Vein, Percutaneous Approach (ICD-10-PCS; principal; 2017-03-05)
PROC: 3E043GC Introduction of Other Therapeutic Substance into Central Vein, Percutaneous Approach (ICD-10-PCS; 2017-03-05)
PROC: 3E0437Z Introduction of Electrolytic and Water Balance Substance into Central Vein, Percutaneous Approach (ICD-10-PCS; 2017-03-05)
DX: Z51.11 Encounter for antineoplastic chemotherapy (principal); C50.311 Malignant neoplasm of lower-inner quadrant of right female breast
CPT/HCPCS: 96361; 96367; 96375; 96413; 96417; J9267; J9355; 36415; 80053; 80076; 83735; 85025; J2997

== ENCOUNTER 2017-03-12 07:20 | Day surgery (SDC) | payer OTHER ==
[2017-03-12] MEDS ORDERED: SODIUM CHLORIDE 250 ML IV ONE ×2 (08:00→11:00)
[2017-03-12] MEDS ORDERED: RANITIDINE IVPB ONE (08:30)
[2017-03-12] MEDS ORDERED: [UNRECOGNIZED DRUG - OTHER] IVPB ONE (08:30)
[2017-03-12] MEDS ORDERED: DEXAMETHASONE INJECTION 10 MG in SODIUM CHLORIDE 50 ML IVPB ONE (08:30)
[2017-03-12] MEDS ORDERED: ACETAMINOPHEN 325 MG TABLET (FP) PO ONE (08:30)
[2017-03-12] MEDS ORDERED: DIPHENHYDRAMINE IVPB ONE (08:30)
[2017-03-12] MEDS ORDERED: ONDANSETRON IVPB ONE (08:30)
[2017-03-12] MEDS ORDERED: PERTUZUMAB 420 MG in SODIUM CHLORIDE 250 ML IVPB ONE (09:00)
[2017-03-12] MEDS ORDERED: TRASTUZUMAB IVPB ONE (09:30)
[2017-03-12] MEDS ORDERED: SODIUM CHLORIDE IVPB ONE (09:30)
[2017-03-12] MEDS ORDERED: PACLITAXEL 114 MG in SODIUM CHLORIDE 250 ML IVPB ONE (10:00)
[2017-03-12 10:13] VITALS: BP 124/70; PULSE 83; TEMP 98.3
[2017-03-12 10:21] LABS: BASOPHIL 1.2 % (0-2.0); EOSINOPHIL 2.8 % (0-4.5); MCH 31.7 pg (25.7-33.7); MCHC 34.2 g/dl (32.0-36.0); MEAN CELL VOLUME 92.5 fl (80-96); NEUTROPHILS 57.3 % (42.8-82.8); PLATELET COUNT 217 K/MM3 (134-434); RDW 13.5 % (11.6-15.6)
[2017-03-12 10:47] LABS: ALBUMIN 3.7 g/dl (3.4-5.0); ALK PHOS 46 U/L (45-117); ANION GAP 7 (8-16); BILIRUBIN,TOTAL 0.3 mg/dL (0.2-1.0); CALCIUM 8.8 mg/dL (8.5-10.1); CO2 28 mmol/L (21-32); CREATININE 0.8 mg/dL (0.55-1.02); GLUCOSE,RANDOM 106 mg/dL (74-106); MAGNESIUM 2.1 mg/dL (1.8-2.4); SGOT/AST 30 U/L (15-37); SGPT/ALT 64 U/L (12-78)
[2017-03-12 10:51] LABS: BILIRUBIN,DIRECT < 0.1 mg/dL (0.0-0.2)
== END 2017-03-12 17:00 | disposition home or self-care (01) ==
LOC: JONCCHEMO 07:20 → J7W 11:27 → JONCCHEMO 17:00
PROVIDERS: ATTEND Internal Medicine Hematology & Oncology
DX: Z51.11 Encounter for antineoplastic chemotherapy (principal); C50.311 Malignant neoplasm of lower-inner quadrant of right female breast
CPT/HCPCS: 36415; 80053; 80076; 83735; 85025; 96361; 96375; 96413; 96417; J9306; J9355

== ENCOUNTER 2017-03-19 07:32 | Day surgery (SDC) | payer OTHER ==
[2017-03-19] MEDS ORDERED: SODIUM CHLORIDE 250 ML IV ONE ×2 (08:00→10:30)
[2017-03-19] MEDS ORDERED: RANITIDINE IVPB ONE (08:30)
[2017-03-19] MEDS ORDERED: DEXAMETHASONE INJECTION 10 MG in SODIUM CHLORIDE 50 ML IVPB ONE (08:30)
[2017-03-19] MEDS ORDERED: DIPHENHYDRAMINE IVPB ONE (08:30)
[2017-03-19] MEDS ORDERED: ONDANSETRON IVPB ONE (08:30)
[2017-03-19] MEDS ORDERED: [UNRECOGNIZED DRUG - OTHER] IVPB ONE (08:30)
[2017-03-19] MEDS ORDERED: PACLITAXEL 114 MG in SODIUM CHLORIDE 250 ML IVPB ONE (09:00)
[2017-03-19] MEDS ORDERED: SODIUM CHLORIDE IVPB ONE (10:00)
[2017-03-19] MEDS ORDERED: TRASTUZUMAB IVPB ONE (10:00)
[2017-03-19 10:05] VITALS: BP 138/60; PULSE 97; TEMP 98.4
[2017-03-19 10:12] LABS: BASOPHIL 1.1 % (0-2.0); EOSINOPHIL 3.5 % (0-4.5); MCH 31.6 pg (25.7-33.7); MCHC 33.7 g/dl (32.0-36.0); MEAN CELL VOLUME 93.6 fl (80-96); NEUTROPHILS 60.5 % (42.8-82.8); PLATELET COUNT 257 K/MM3 (134-434); RDW 14.1 % (11.6-15.6); WHITE BLOOD COUNT 4.5 K/mm3 (4.0-10.0)
[2017-03-19 10:38] LABS: ALBUMIN 3.7 g/dl (3.4-5.0); ALK PHOS 44 U/L (45-117); ANION GAP 5 (8-16); BILIRUBIN,TOTAL 0.3 mg/dL (0.2-1.0); CO2 29 mmol/L (21-32); CREATININE 0.8 mg/dL (0.55-1.02); GLUCOSE,RANDOM 106 mg/dL (74-106); SGOT/AST 31 U/L (15-37); SGPT/ALT 44 U/L (12-78); TOT PROT 7.2 g/dl (6.4-8.2)
[2017-03-19 10:51] LABS: BILIRUBIN,DIRECT < 0.1 mg/dL (0.0-0.2)
== END 2017-03-19 16:30 | disposition home or self-care (01) ==
LOC: JONCCHEMO 07:32 → J7W 11:07 → JONCCHEMO 16:30
PROVIDERS: ATTEND Internal Medicine Hematology & Oncology
DX: Z51.11 Encounter for antineoplastic chemotherapy (principal); C50.311 Malignant neoplasm of lower-inner quadrant of right female breast
CPT/HCPCS: 36415; 80053; 80076; 85025; 96361; 96375; 96413; 96417; J9355

== ENCOUNTER 2017-03-26 07:40 | Day surgery (SDC) | payer OTHER ==
[2017-03-26 09:47] LABS: BASOPHIL 1.1 % (0-2.0); EOSINOPHIL 4.4 % (0-4.5); MCH 31.9 pg (25.7-33.7); MCHC 33.8 g/dl (32.0-36.0); MEAN CELL VOLUME 94.2 fl (80-96); MEAN PLT VOLUME 8.7 fl (7.5-11.1); NEUTROPHILS 56.4 % (42.8-82.8); PLATELET COUNT 251 K/MM3 (134-434); WHITE BLOOD COUNT 4.6 K/mm3 (4.0-10.0)
[2017-03-26] MEDS ORDERED: SODIUM CHLORIDE 250 ML IV ONE ×2 (10:00→12:00)
[2017-03-26] MEDS ORDERED: DEXAMETHASONE INJECTION 10 MG in SODIUM CHLORIDE 50 ML IVPB ONE (10:00)
[2017-03-26] MEDS ORDERED: RANITIDINE IVPB ONE (10:00)
[2017-03-26] MEDS ORDERED: [UNRECOGNIZED DRUG - OTHER] IVPB ONE (10:00)
[2017-03-26] MEDS ORDERED: ONDANSETRON IVPB ONE (10:00)
[2017-03-26] MEDS ORDERED: DIPHENHYDRAMINE IVPB ONE (10:00)
[2017-03-26 10:18] LABS: ALBUMIN 3.7 g/dl (3.4-5.0); ALK PHOS 45 U/L (45-117); ANION GAP 6 (8-16); BILIRUBIN,TOTAL 0.5 mg/dL (0.2-1.0); CALCIUM 9.1 mg/dL (8.5-10.1); CO2 29 mmol/L (21-32); CREATININE 0.8 mg/dL (0.55-1.02); GLUCOSE,RANDOM 97 mg/dL (74-106); MAGNESIUM 2.2 mg/dL (1.8-2.4); SGOT/AST 27 U/L (15-37); SGPT/ALT 34 U/L (12-78); TOT PROT 7.1 g/dl (6.4-8.2)
[2017-03-26] MEDS ORDERED: PACLITAXEL 114 MG in SODIUM CHLORIDE 250 ML IVPB ONE (10:30)
[2017-03-26 10:35] LABS: BILIRUBIN,DIRECT < 0.1 mg/dL (0.0-0.2)
[2017-03-26] MEDS ORDERED: TRASTUZUMAB IVPB ONE (11:30)
[2017-03-26] MEDS ORDERED: SODIUM CHLORIDE IVPB ONE (11:30)
[2017-03-26 16:33] VITALS: BP 158/80; PULSE 78; TEMP 98.6
== END 2017-03-26 17:00 | disposition home or self-care (01) ==
LOC: JONCCHEMO 07:40 → J7W 11:05 → JONCCHEMO 17:00
PROVIDERS: ATTEND Internal Medicine Hematology & Oncology
DX: Z51.11 Encounter for antineoplastic chemotherapy (principal); C50.311 Malignant neoplasm of lower-inner quadrant of right female breast
CPT/HCPCS: 36415; 70360-TC; 72050-TC; 80053; 80076; 83735; 85025; 96361; 96367; 96375; 96413; 96417; J9355

== ENCOUNTER 2017-04-02 07:42 | Day surgery (SDC) | payer OTHER ==
[2017-04-02 09:54] LABS: BASOPHIL 0.4 % (0-2.0); EOSINOPHIL 2.1 % (0-4.5); MCH 32.1 pg (25.7-33.7); MCHC 34.2 g/dl (32.0-36.0); MEAN PLT VOLUME 9.2 fl (7.5-11.1); NEUTROPHILS 74.6 % (42.8-82.8); PLATELET COUNT 257 K/MM3 (134-434); RDW 14.4 % (11.6-15.6); WHITE BLOOD COUNT 6.7 K/mm3 (4.0-10.0)
[2017-04-02] MEDS ORDERED: ACETAMINOPHEN 325 MG TABLET (FP) PO ONE (10:00)
[2017-04-02] MEDS ORDERED: DIPHENHYDRAMINE IVPB ONE (10:00)
[2017-04-02] MEDS ORDERED: SODIUM CHLORIDE 250 ML IV ONE ×2 (10:00→12:30)
[2017-04-02] MEDS ORDERED: DEXAMETHASONE INJECTION 10 MG in SODIUM CHLORIDE 50 ML IVPB ONE (10:00)
[2017-04-02] MEDS ORDERED: [UNRECOGNIZED DRUG - OTHER] IVPB ONE (10:00)
[2017-04-02] MEDS ORDERED: ONDANSETRON IVPB ONE (10:00)
[2017-04-02] MEDS ORDERED: RANITIDINE IVPB ONE (10:00)
[2017-04-02 10:17] LABS: ALBUMIN 3.7 g/dl (3.4-5.0); ANION GAP 7 (8-16); BILIRUBIN,TOTAL 0.3 mg/dL (0.2-1.0); CALCIUM 8.8 mg/dL (8.5-10.1); CO2 27 mmol/L (21-32); CREATININE 0.8 mg/dL (0.55-1.02); GLUCOSE,RANDOM 105 mg/dL (74-106); MAGNESIUM 2.1 mg/dL (1.8-2.4); SGOT/AST 26 U/L (15-37); SGPT/ALT 32 U/L (12-78); TOT PROT 7.1 g/dl (6.4-8.2)
[2017-04-02 10:18] LABS: ALK PHOS 47 U/L (45-117)
[2017-04-02 10:19] LABS: BILIRUBIN,DIRECT < 0.2 mg/dL (0.0-0.2)
[2017-04-02] MEDS ORDERED: PACLITAXEL 114 MG in SODIUM CHLORIDE 250 ML IVPB ONE (10:30)
[2017-04-02] MEDS ORDERED: PERTUZUMAB 420 MG in SODIUM CHLORIDE 250 ML IVPB ONE (11:30)
[2017-04-02] MEDS ORDERED: SODIUM CHLORIDE IVPB ONE (12:00)
[2017-04-02] MEDS ORDERED: TRASTUZUMAB IVPB ONE (12:00)
[2017-04-02 15:26] VITALS: TEMP 97.8
[2017-04-02 15:51] VITALS: BP 129/77; PULSE 81
== END 2017-04-02 18:04 | disposition home or self-care (01) ==
LOC: JONCCHEMO 07:42 → J7W 10:34 → JONCCHEMO 18:04
PROVIDERS: ATTEND Internal Medicine Hematology & Oncology
PROC: 3E04305 Introduction of Other Antineoplastic into Central Vein, Percutaneous Approach (ICD-10-PCS; principal; 2017-04-02)
PROC: 3E043GC Introduction of Other Therapeutic Substance into Central Vein, Percutaneous Approach (ICD-10-PCS; 2017-04-02)
PROC: 3E0437Z Introduction of Electrolytic and Water Balance Substance into Central Vein, Percutaneous Approach (ICD-10-PCS; 2017-04-02)
DX: Z51.11 Encounter for antineoplastic chemotherapy (principal); C50.311 Malignant neoplasm of lower-inner quadrant of right female breast; I10 Essential (primary) hypertension; E78.00 Pure hypercholesterolemia, unspecified
CPT/HCPCS: 96361; 96375; 96413; 96417; J9267; J9306; 36415; 80053; 80076; 83735; 85025; J9355

== ENCOUNTER 2017-04-09 07:41 | Day surgery (SDC) | payer OTHER ==
[2017-04-09 09:48] LABS: MCH 32.6 pg (25.7-33.7); MCHC 34.4 g/dl (32.0-36.0); MEAN CELL VOLUME 94.7 fl (80-96); MEAN PLT VOLUME 9.6 fl (7.5-11.1); NEUTROPHILS 59.5 % (42.8-82.8); PLATELET COUNT 279 K/MM3 (134-434); RDW 14.7 % (11.6-15.6); WHITE BLOOD COUNT 4.1 K/mm3 (4.0-10.0)
[2017-04-09] MEDS ORDERED: DIPHENHYDRAMINE IVPB ONE (10:00)
[2017-04-09] MEDS ORDERED: RANITIDINE IVPB ONE (10:00)
[2017-04-09] MEDS ORDERED: [UNRECOGNIZED DRUG - OTHER] IVPB ONE (10:00)
[2017-04-09] MEDS ORDERED: DEXAMETHASONE INJECTION 10 MG in SODIUM CHLORIDE 50 ML IVPB ONE (10:00)
[2017-04-09] MEDS ORDERED: SODIUM CHLORIDE 250 ML IV ONE ×2 (10:00→12:00)
[2017-04-09] MEDS ORDERED: ONDANSETRON IVPB ONE (10:00)
[2017-04-09 10:12] LABS: ALBUMIN 3.7 g/dl (3.4-5.0); ANION GAP 5 (8-16); CALCIUM 8.9 mg/dL (8.5-10.1); CO2 31 mmol/L (21-32); CREATININE 0.8 mg/dL (0.55-1.02); GLUCOSE,RANDOM 96 mg/dL (74-106); MAGNESIUM 2.3 mg/dL (1.8-2.4); SGOT/AST 23 U/L (15-37); SGPT/ALT 29 U/L (12-78)
[2017-04-09 10:14] LABS: ALK PHOS 46 U/L (45-117); BILIRUBIN,TOTAL 0.4 mg/dL (0.2-1.0); TOT PROT 7.1 g/dl (6.4-8.2)
[2017-04-09 10:23] LABS: BILIRUBIN,DIRECT < 0.2 mg/dL (0.0-0.2)
[2017-04-09] MEDS ORDERED: PACLITAXEL 114 MG in SODIUM CHLORIDE 250 ML IVPB ONE (10:30)
[2017-04-09] MEDS ORDERED: TRASTUZUMAB IVPB ONE (11:30)
[2017-04-09] MEDS ORDERED: SODIUM CHLORIDE IVPB ONE (11:30)
[2017-04-09 11:38] VITALS: PULSE 81; TEMP 98.9
[2017-04-09] MEDS ORDERED: PORTA CATH FLUSH 10 ML IVPUSH ONE (16:00)
[2017-04-09 18:51] VITALS: BP 134/83
== END 2017-04-09 17:00 | disposition home or self-care (01) ==
LOC: JONCCHEMO 07:41 → J7W 11:06 → JONCCHEMO 17:00
PROVIDERS: ATTEND Internal Medicine Hematology & Oncology
DX: Z51.11 Encounter for antineoplastic chemotherapy (principal); C50.311 Malignant neoplasm of lower-inner quadrant of right female breast
CPT/HCPCS: 36415; 72050-TC; 73030-TC-LT; 80053; 80076; 83735; 85025; 96361; 96367; 96375; 96413; 96417; J9355

== ENCOUNTER 2017-04-16 07:26 | Day surgery (SDC) | payer OTHER ==
[2017-04-16] MEDS ORDERED: DIPHENHYDRAMINE IVPB ONE (10:00)
[2017-04-16] MEDS ORDERED: ONDANSETRON IVPB ONE (10:00)
[2017-04-16] MEDS ORDERED: DEXAMETHASONE INJECTION 10 MG in SODIUM CHLORIDE 50 ML IVPB ONE (10:00)
[2017-04-16] MEDS ORDERED: RANITIDINE IVPB ONE (10:00)
[2017-04-16] MEDS ORDERED: [UNRECOGNIZED DRUG - OTHER] IVPB ONE (10:00)
[2017-04-16] MEDS ORDERED: SODIUM CHLORIDE 250 ML IV ONE ×2 (10:00→12:00)
[2017-04-16] MEDS ORDERED: PACLITAXEL 114 MG in SODIUM CHLORIDE 250 ML IVPB ONE (10:30)
[2017-04-16] MEDS ORDERED: TRASTUZUMAB IVPB ONE (11:30)
[2017-04-16] MEDS ORDERED: SODIUM CHLORIDE IVPB ONE (11:30)
[2017-04-16 11:51] LABS: BASOPHIL 1.1 % (0-2.0); MCH 31.5 pg (25.7-33.7); MCHC 33.3 g/dl (32.0-36.0); MEAN CELL VOLUME 94.7 fl (80-96); MEAN PLT VOLUME 9.3 fl (7.5-11.1); NEUTROPHILS 55.4 % (42.8-82.8); PLATELET COUNT 257 K/MM3 (134-434); RDW 14.6 % (11.6-15.6); WHITE BLOOD COUNT 3.8 K/mm3 (4.0-10.0)
[2017-04-16 12:17] LABS: ANION GAP 9 (8-16); CHOLESTEROL 203 mg/dL (50-200); CO2 30 mmol/L (21-32); CREATININE 0.7 mg/dL (0.55-1.02); GLUCOSE,RANDOM 101 mg/dL (74-106); LDL CHOLESTEROL (ONLY SJRH) 130 mg/dL (5-100)
[2017-04-16] MEDS ORDERED: PORTA CATH FLUSH 10 ML IVPUSH ONE (16:41)
[2017-04-16 19:58] VITALS: BP 140/90; PULSE 84; TEMP 98.1
== END 2017-04-16 19:00 | disposition home or self-care (01) ==
LOC: JONCCHEMO 07:26 → J7W 11:40 → JONCCHEMO 19:00
PROVIDERS: ATTEND Internal Medicine Hematology & Oncology
DX: Z51.11 Encounter for antineoplastic chemotherapy (principal); C50.311 Malignant neoplasm of lower-inner quadrant of right female breast
CPT/HCPCS: 36415; 80048; 80061; 82378; 83721; 85025; 86300; 96361; 96367; 96375; 96413; 96417; J9355

== ENCOUNTER 2017-04-16 21:34 | Observation (INO) | payer OTHER ==
--- NOTE | 2017-04-16 22:06 | PDOC ---
History of Present Illness - General Chief Complaint: Syncope/Near Syncope Stated Complaint: LETHARGY Time Seen by Provider: 04/16/17 22:04 History Source: Patient, Family Exam Limitations: No Limitations - History of Present Illness Initial Comments: 04/16/17 22:05 CC: Syncope Patient is a 76 y.o. female with a PMH of Breast CA (R breast, currently on Herceptin/Taxol chemotherapeutic regimen) who presents to the ED after an episode of syncope. Patient was on the toilet when she suddenly passed out - patient's friend was with patient and was able to catch the patient preventing any head trauma. As per friend who is @ bedside patient lost consciousness for approximately 5 minutes and family tried to revive her using alcohol under the nose. Patient denies any pre-syncopal shortness of breath, chest pain, diaphoresis, confusion or blurry vision. Of note, patient did receive a chemotherapy treatment today after which patient had an allergic reaction of unknown etiology including hives with no throat or tongue swelling which resolved following administration of Benadryl. Past History - Past Medical History Allergies/Adverse Reactions: Allergies Allergy/AdvReac Type Severity Reaction Status Date / Time Penicillins Allergy Severe Rash Verified 03/01/17 22:39 Home Medications: Ambulatory Orders Aspirin Coated [Ecotrin -] 81 mg PO DAILY #0 tablet.ec 02/14/12 Atorvastatin Ca [Lipitor] 10 mg PO HS #0 tablet 02/14/12 Meclizine HCl 25 mg PO TID #0 tablet 02/14/12 Amlodipine Besylate 10 mg PO DAILY 07/07/15 Cholecalciferol (Vitamin D3) [Vitamin D3] 2,000 unit PO DAILY 08/27/15 Clonazepam 0.5 mg PO PRN PRN 08/27/15 Lisinopril/Hydrochlorothiazide [Lisinopril-Hctz 20-25 mg Tab] 1 each PO DAILY Acetaminophen W/ Codeine #3 [Tylenol # 3 -] 1 tab PO Q4H #30 tablet MDD 6 Anemia: No Asthma: No Cancer: No Cardiac Disorders: No CVA: No COPD: No CHF: No Dementia: No Diabetes: No GI Disorders: Yes (gall stones) Disorders: Yes (URINARY URGENCY) HTN: Yes Hypercholesterolemia: Yes Liver Disease: No Seizures: No Thyroid Disease: No - Surgical History Abdominal Surgery: No Appendectomy: No Cardiac Surgery: No Cholecystectomy: Yes Lung Surgery: No Neurologic Surgery: No Orthopedic Surgery: No - Psycho/Social/Smoking Cessation Hx Suicidal Ideation: No Smoking Status: No Smoking History: Never smoked Have you smoked in the past 12 months: No Number of Cigarettes Smoked Daily: 0 Hx Alcohol Use: No Drug/Substance Use Hx: No Substance Use Type: None Hx Substance Use Treatment: No Review of Systems - Review of Systems Constitutional: No: Chills, Diaphoresis HEENTM: No: Blurred Vision, Double Vision, Tinnitus, Hearing Loss Respiratory: No: Cough, Orthopnea Cardiac (ROS): No: Chest Pain, Edema, Irregular Heart Rate, Lightheadedness ABD/GI: No: Diarrhea, Nausea, Vomiting : No: Burning, Dysuria All Other Systems: Reviewed and Negative *Physical Exam - Physical Exam General Appearance: Yes: Appropriately Dressed, Thin HEENT: positive: EOMI, ANH, Other (Trismus) Neck: positive: Trachea midline, Supple Cardiovascular: positive: Regular Rhythm, Regular Rate, S1, S2 Gastrointestinal/Abdominal: positive: Normal Bowel Sounds, Soft Musculoskeletal: positive: Other Neurologic: positive: woodworking belt sander II-XII NML intact, Fully Oriented, Alert ED Treatment Course - LABORATORY CBC & Chemistry Diagram: 04/16/17 23:10 04/16/17 23:10 Medical Decision Making - Medical Decision Making 04/16/17 22:25 Initial differential diagnosis includes vasovagal syncope vs. syncope 2/2 hypotension 2/2 chemotherapy or limited PO intake. Patient evaluated by Dr. Patrick @ [facility] who requested EKG, Blood Cultures, Decadron and Abx. EKG showed NSR (HR 78 BPM) with premature atrial complexes and possible LVH. Wet read of CXR shows no infiltration, no pleural effusion, no congestion. Patient admitted to Dr. Woodson. *DC/Admit/Observation/Transfer Diagnosis at time of Disposition: Syncope - Discharge Dispostion Disposition: HOME Condition at time of disposition: Good Admit: Yes
[2017-04-16] MEDS ORDERED: DEXAMETHASONE SOD PHOSPHATE 4 MG/1 ML VIAL IVPB ONE (22:20)
[2017-04-16] MEDS ORDERED: PANTOPRAZOLE SODIUM 40 MG in SODIUM CHLORIDE 100 ML IVPB ONE (22:21)
[2017-04-16] MEDS ORDERED: SODIUM CHLORIDE 500 ML IV STA (22:22)
[2017-04-16 22:40] VITALS: BMI 26.2
[2017-04-16] MEDS ORDERED: DEXAMETHASONE SOD PHOSPHATE 10 MG/1 ML VIAL IVPB ONE (23:03)
--- NOTE | 2017-04-16 23:03 | CONSULT ---
Consult - text type - Consultation Consultation Note: Patient seen and examined well known to our service Just saw her around 6pm when she had finished her taxol/herceptin infusion and developed 2 hives over upper chest/neck she was given benadryl. hives resolved she was observed and sent home around 730pm Her daughter called saying she was found unresponsive in the bahroom around 830pm 911 was called and she came to the ER On examining her in ER--patient was alert, oriented. Answering questions and holding full conversation reports having gone home. Had dinner, jessa developed abdominal pain, cramping. Had a bout of diarrhea and then passed out while seated on the commode Denies hitting her head or falling down. Her friend tries to revive her sniff alcohol. EMS was called and she was brought to the ER Currently denies any fever/chills/cough/SOB/rash/itching/hives. Abdominal pain improved to resolved But has had neck pain radiating to LUE for 3 weeks now. she reports weakness , pain of LUE with movement Also c/o trismus and not able to open her jaw fully and c/o sored in her mouth PMH HTN hyperlipidemia breast cancer Last Vital Signs Temp Pulse Resp BP Pulse Ox 97.8 F 91 H 14 102/60 98 04/16/17 22:32 04/16/17 22:32 04/16/17 22:32 04/16/17 22:32 04/16/17 22:32 Cor: RSR, No murmurs, No gallops Lungs: Clear to P&A Abd: Soft, Normal bowel sounds, No organomegaly, BS+ Ext:No significant edema Skin: No rashes, Integument intact Abnormal Lab Results 04/16/17 04/16/17 23:10 23:10 RBC 3.53 L Neutrophils % 90.0 H D Lymphocytes % 6.9 L D Monocytes % 2.2 L Creatinine 1.1 H D Random Glucose 264 H D Calcium 7.7 L Albumin 3.3 L A/P 76 y/o female on weekly taxol/herceptin for breast cancer, just completed infusion this evening. Developed 2 hives over upper chest after infusion which resolved with benadryl. On going home and having dinner, she developed abdominal cramping, diarrhea and syncopized while on the comode. ? vasovagal vs allergic reaction vs r/co cardiac etiology r/o occult infection IV fluids dexamethasone 20 mg IVPB x1 dose Check CBC/CMP/cardiac enzymes/cultures/CXR/EKG Magic mouth wash for stomatitis Would have a low threshold to cover for infection --- pcn allergic -----hence vancomycin/aztreonam or levaquin ID/cardio/neuro consult monitor closely
[2017-04-16] MEDS ORDERED: DEXAMETHASONE SOD PHOSPHATE 20 MG/5 ML VIAL IVPB ONE (23:06)
[2017-04-16] MEDS ORDERED: AZTREONAM 1 GM in DEXTROSE 5%-WATER - 50 ML IVPB ONE (23:14)
[2017-04-16 23:25] LABS: BASOPHIL 0.8 % (0-2.0); EOSINOPHIL 0.1 % (0-4.5); MCH 32.2 pg (25.7-33.7); MCHC 34.2 g/dl (32.0-36.0); MEAN CELL VOLUME 94.1 fl (80-96); MEAN PLT VOLUME 9.8 fl (7.5-11.1); PLATELET COUNT 236 K/MM3 (134-434); RDW 14.4 % (11.6-15.6); WHITE BLOOD COUNT 4.2 K/mm3 (4.0-10.0)
--- NOTE | 2017-04-16 23:28 | PDOC ---
Attending Attestation - Resident Resident Name: Marycarmen Vance - ED Attending Attestation I have performed the following: I have examined & evaluated the patient, The case was reviewed & discussed with the resident, I agree w/resident's findings & plan, Exceptions are as noted - HPI HPI: 04/16/17 23:19 76 yo F with h/o breast CA on chemo, here today after syncopal episode. at home. had allergic reaction today whil in office, broke out in hives. was treated with benadryl, then this evening. was on toilet, with family at side. felt lightheaded. fall broken by family. brief LOC for 5 min. no shaking . no barraza . no cp no sob or diaphroesis. pt had had neck pain for several week and lower ext weaknes, which she was admitted for recently. no f/c no cough. no ther complaints - Physicial Exam PE: 04/16/17 23:22 on exam pt awake alert lungs clear heart rrr no mrg. abd soft Nt ND. ext wwp no edema. no calf tenderness. nuero awake alert 5/5 all four ext strenth. sensation decreased left leg. ( old ) - Medical Decision Making 04/16/17 23:28 differential diagnosis, dehydration dysrhtymia, hypotension. vasovagal, . no current signs of infection ( no cough, no fever) will add blood cultures per DR Mercado request, iv hydration, tele labs ekg. <Reta Lopes - Last Filed: 04/16/17 23:19> - Medical Decision Making 04/17/17 00:[address] Jennifer Woodson who is covering for Dr. Duane Marquez (via answering service) Awaiting call back 04/17/17 00:11 Patient's case discussed with Dr. Woodson <Allison Lantigua - Last Filed: 04/17/17 00:54> Heart Score/ECG Review - ECG Impressions Comment:: 04/17/17 00:53 Sinus rhythm with premature atrial complexes @78bpm Moderate voltage criteria for LVH, may be normal variant Borderline ECG <Allison Lantigua - Last Filed: 04/17/17 00:54>
[2017-04-16] MEDS ORDERED: DEXAMETHASONE SOD PHOSPHATE 10 MG/1 ML VIAL ONE (23:33)
[2017-04-16] MEDS ORDERED: PANTOPRAZOLE SODIUM 100 ML IVPB ONE (23:33)
[2017-04-16 23:40] LABS: ALBUMIN 3.3 g/dl (3.4-5.0); ANION GAP 10 (8-16); BILIRUBIN,TOTAL 0.4 mg/dL (0.2-1.0); CALCIUM 7.7 mg/dL (8.5-10.1); CO2 23 mmol/L (21-32); CREATININE 1.1 mg/dL (0.55-1.02); GLUCOSE,RANDOM 264 mg/dL (74-106); SGOT/AST 30 U/L (15-37); SGPT/ALT 31 U/L (12-78); TOT PROT 6.4 g/dl (6.4-8.2)
[2017-04-16 23:42] LABS: ALK PHOS 46 U/L (45-117); CPK 105 IU/L (26-192); TROPONIN I < 0.02 ng/ml (0.00-0.05)
[2017-04-17] MEDS ORDERED: MAG HYDROX/ALH/SMC/DPHA/LIDO 240 ML MOUTHWASH MM SCH
[2017-04-17 00:37] LABS: URINE APPEARANCE CLEAR; URINE BILIRUBIN NEGATIVE (NEGATIVE); URINE BLOOD NEGATIVE (NEGATIVE); URINE COLOR LTYELLOW; URINE GLUCOSE (UA) 2+ (NEGATIVE); URINE KETONE NEGATIVE (NEGATIVE); URINE LEUK ESTERASE NEGATIVE (NEGATIVE); URINE NITRITE NEGATIVE (NEGATIVE); URINE PROTEIN NEGATIVE (NEGATIVE); URINE UROBILINOGEN NEGATIVE mg/dL (0.2-1.0)
[2017-04-17] MEDS ORDERED: SODIUM CHLORIDE 1,000 ML IV SCH (05:15)
--- NOTE | 2017-04-17 08:20 | PN ---
Progress Note (short form) - Note Progress Note: IMP: Breast CA undergoing chemo Diarrhea, subsequent syncope Likely vasovagal or dehydration REC: Hydrate Echo Tele x 24 hours
--- NOTE | 2017-04-17 08:56 | CONS ---
CARDIOLOGY CONSULTATION DATE OF CONSULTATION: 04/17/2017 REQUESTING PHYSICIAN: Jennifer Woodson MD REASON FOR CONSULTATION: Syncope. HISTORY OF PRESENT ILLNESS: Briefly, the patient is a 76-year-old female with breast cancer undergoing chemotherapy. She reports coming home from chemotherapy and feeling abdominal discomfort and having multiple bouts of diarrhea. While on the toilet, felt lightheaded and subsequently had a syncopal episode. She denies antecedent palpitations or chest pain. She currently is chest pain free with no shortness of breath. She is already feeling better this morning after being in the emergency room and receiving some hydration. PAST MEDICAL HISTORY: Significant for breast cancer, chronic vertigo, hypertension, hyperlipidemia, and mild carotid plaque. ALLERGIES: PENICILLIN. HOME MEDICATIONS: Are listed in the EMR and include meclizine p.r.n., lisinopril/hydrochlorothiazide 20/25 daily, clonazepam p.r.n., vitamin D3, Lipitor 10 nightly, aspirin 81 daily, and amlodipine 10 daily. FAMILY HISTORY: Noncontributory. SOCIAL HISTORY: Nonsmoker. PHYSICAL EXAMINATION: Vital Signs: She is afebrile, temperature 98.2. Pulse 94, regular. Blood pressure 116/75. O2 saturation is 98 on room air. HEENT: Anicteric. Neck: No bruits in the carotid distribution. Heart: S1, S2. Regular. Chest: Clear. Abdomen: Soft, nontender. Extremities: No edema. DIAGNOSTIC DATA: EKG showed sinus with LVH, nonspecific T-wave inversion in V2. Chest x-ray showed no acute infiltrates. White count 4, hematocrit 33, platelets 236. Sodium 140, potassium 4, creatinine 1.1. Troponin is negative. Urinalysis showed 2+ glucose, otherwise negative. IMPRESSION: A 76-year-old female receiving chemotherapy for breast cancer, subsequently developed diarrhea - multiple episodes - with subsequent presyncopal/syncopal episode. This likely represents vasovagal syncope or orthostatic hypotension from dehydration. Doubt cardiac etiology. PLAN: 1. Continue telemetry for 24 hours. 2. Echocardiogram. 3. Carotid ultrasound. 4. Neurologic evaluation is also planned. 5. Patient can likely be discharged later today or early tomorrow pending clinical course. Thank you for the consultation. APOLLO CONROY M.D. [id number]
[2017-04-17] MEDS ORDERED: MECLIZINE HCL 25 MG TABLET (FP) PO PRN (10:54)
[2017-04-17] MEDS ORDERED: clonazePAM 0.5 MG TABLET PO PRN (10:55)
[2017-04-17] MEDS ORDERED: ACETAMINOPHEN WITH CODEINE 300MG/30MG TABLET PO PRN (10:56)
[2017-04-17 12:20] LABS: BASOPHIL 0.1 % (0-2.0); MCHC 33.8 g/dl (32.0-36.0); MEAN CELL VOLUME 94.7 fl (80-96); MEAN PLT VOLUME 9.3 fl (7.5-11.1); NEUTROPHILS 87.8 % (42.8-82.8); PLATELET COUNT 242 K/MM3 (134-434); RDW 14.9 % (11.6-15.6)
[2017-04-17] MEDS: ASPIRIN 81 MG CHEWABLE TABLETS PO SCH (12:28)
[2017-04-17] MEDS: LISINOPRIL 20 MG TABLET (FP) PO SCH (12:28)
[2017-04-17] MEDS: amLODIPine BESYLATE 10 MG TABLET (FP) PO SCH (12:28)
[2017-04-17] MEDS: PANTOPRAZOLE 40 MG TABLET (FP) PO SCH (12:28)
[2017-04-17] MEDS: HYDROCHLOROTHIAZIDE 25 MG TABLET (FP) PO SCH (12:28)
[2017-04-17 12:49] LABS: ALBUMIN 3.5 g/dl (3.4-5.0); ANION GAP 7 (8-16); BILIRUBIN,TOTAL 0.4 mg/dL (0.2-1.0); CALCIUM 8.3 mg/dL (8.5-10.1); CO2 26 mmol/L (21-32); CREATININE 0.8 mg/dL (0.55-1.02); GLUCOSE,RANDOM 131 mg/dL (74-106); SGOT/AST 23 U/L (15-37); SGPT/ALT 30 U/L (12-78); TOT PROT 6.7 g/dl (6.4-8.2)
[2017-04-17 12:50] LABS: ALK PHOS 43 U/L (45-117)
--- NOTE | 2017-04-17 12:51 | PN ---
Progress Note (short form) - Note Progress Note: ID consult dictated imp/reccd syncope abd pain and diarrhea at home- now resolved s/p chemo for breast cancer yesterday pen allergy-hives no fevers normal WBC count (not neutropenic) cultures sent would observe off antibiotics for now Problem List - Problems (1) Syncope Code(s): R55 - SYNCOPE AND COLLAPSE (2) Breast CA Code(s): C50.919 - MALIGNANT NEOPLASM OF UNSP SITE OF UNSPECIFIED FEMALE BREAST
--- NOTE | 2017-04-17 13:31 | CONS ---
INFECTIOUS DISEASE CONSULTATION DATE OF CONSULTATION: 04/17/2017 REQUESTING PHYSICIAN: HISTORY OF PRESENT ILLNESS: This is a 76-year-old woman with breast cancer, who is on chemotherapy. She returned from chemotherapy yesterday evening. At the end of the session, she had received her Taxol and Herceptin, and she developed some hives. She was given Benadryl. The hives resolved, and she went home around 7:30. She reports after going home, she prepared dinner for herself. She ate brown rice, spinach, and eggs. She subsequently developed severe abdominal pain and went to use the bathroom where she had diarrhea and was found unresponsive, so 04-20- was called and she came to the ER. She reports when -08-20 came that she was completely awake, but she was not able to talk to them. She was completely aware of what was going on. After she arrived in the emergency room, she was awake and alert and oriented. She has had no fevers or chills. The diarrhea and abdominal pain have resolved. In fact, she just ate some lunch. She reports having a poor appetite because she says her sense of taste is completely off, and she has not been eating well. She has also not been drinking well because she reports her taste is so off, that even water tastes bad. ALLERGIES: She is allergic to PENICILLIN which gives her hives, as well as MULTIPLE FOODS. MEDICATIONS: At home include vitamin D3, Ecotrin, amlodipine, lisinopril/hydrochlorothiazide, atorvastatin, meclizine, Tylenol No. 3. FAMILY HISTORY: Noncontributory. SOCIAL HISTORY: She resides in the community. There is no history of any cigarette or substance use. REVIEW OF SYSTEMS: She has no cough. She has no chest pain. She never had any vomiting, and her diarrhea and abdominal pain have resolved. PHYSICAL EXAMINATION: General: She is awake and alert and oriented x3. Vital Signs: Temperature is 98.2, pulse of 94, blood pressure 116/75, respiratory rate is 15. She is saturating 95% on room air. HEENT: She is normocephalic. Her eyes are anicteric. She has no thrush. She has no pharyngitis. She is easily able to open her mouth. Neck: Supple. Skin: Her port site is clean without any erythema. Heart: Regular rate and rhythm. Lungs: Clear to auscultation. Abdomen: Soft, nontender. Extremities: Without edema. DIAGNOSTIC DATA: White count on admission was 4.2, now is 6. Hemoglobin 11.8, platelets are 242. BUN and creatinine from yesterday are 16 and 1.1. Labs today are pending. LFTs are normal. Urinalysis has 2+ glucose and is otherwise negative. Blood cultures are pending. Chest x-ray has no evidence of active pulmonary disease. In summary, this is a 76-year-old woman with syncope. Abdominal pain and diarrhea at home have resolved. She is status post chemotherapy for breast cancer yesterday, and she has a PENICILLIN allergy manifested by hives. She has no fevers. She is not neutropenic. Blood cultures have been sent. I do not suspect an infection caused her syncope given the rapid resolution of her symptoms. She is currently being evaluated by Cardiology and Neurology, which appears appropriate. All of her symptoms may have been related to a vasovagal response, perhaps combined by dehydration. She is reporting that given her change in her taste that she really has been eating and drinking poorly. Would monitor off antibiotics at this time. DIONE RODRIGUEZ M.D. [id number]
--- NOTE | 2017-04-17 15:47 | CON.NEURO ---
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 Cardio/Vascular: Yes: HTN, Hyperlipdemia - Past Surgical History Past Surgical History: Yes: Cholecystectomy, Hysterectomy - Alcohol/Substance Use Hx Alcohol Use: No - Smoking History Smoking history: Never smoked Have you smoked in the past 12 months: No Aproximately how many cigarettes per day: 0 - Social History Usual Living Arrangement: Alone ADL: Independent History of Recent Travel: No Home Medications - Allergies Allergies/Adverse Reactions: Allergies Allergy/AdvReac Type Severity Reaction Status Date / Time Penicillins Allergy Severe Rash Verified 03/01/17 22:39 - Home Medications Home Medications: Ambulatory Orders Aspirin Coated [Ecotrin -] 81 mg PO DAILY #0 tablet.ec 02/14/12 Atorvastatin Ca [Lipitor] 10 mg PO HS #0 tablet 02/14/12 Meclizine HCl 25 mg PO TID #0 tablet 02/14/12 Amlodipine Besylate 10 mg PO DAILY 07/07/15 Cholecalciferol (Vitamin D3) [Vitamin D3] 2,000 unit PO DAILY 08/27/15 Clonazepam 0.5 mg PO PRN PRN 08/27/15 Lisinopril/Hydrochlorothiazide [Lisinopril-Hctz 20-25 mg Tab] 1 each PO DAILY Acetaminophen W/ Codeine #3 [Tylenol # 3 -] 1 tab PO Q4H #30 tablet MDD 6 Family Disease History - Family Disease History Family Disease History: Heart Disease: Mother (CAD, unknown age) Physical Exam-Neuro Vital Signs: Vital Signs Temperature 98.2 F 04/17/17 15:02 Pulse Rate 89 04/17/17 15:02 Respiratory Rate 18 04/17/17 15:02 Blood Pressure 129/75 04/17/17 15:02 O2 Sat by Pulse Oximetry (%) 94 L 04/17/17 10:00 Labs: CBC, BMP 04/17/17 11:58 04/17/17 11:58 Assessment/Plan cc rule out cord compression HPI 76 year old female history of breast cancer ( currently on herceptin/taxol regimen). Patient came to hospital for syncope. THere was no seizure like activity, no dysphagia dysarthrai or diplopia. Patient is on chemo for breast cancer and after that she is planned for surgery and radiation. Patient has been feeling heavy in lower extremity. she denies any bowel or bladder symptoms and abnormal sensation. Patient had mri of l spine done three months ago and no cancer was found. Allergies Allergy/AdvReac Type Severity Reaction Status Date / Time Penicillins Allergy Severe Rash Verified 03/01/17 22:39 Home Medications: Ambulatory Orders Aspirin Coated [Ecotrin -] 81 mg PO DAILY #0 tablet.ec 02/14/12 Atorvastatin Ca [Lipitor] 10 mg PO HS #0 tablet 02/14/12 Meclizine HCl 25 mg PO TID #0 tablet 02/14/12 Amlodipine Besylate 10 mg PO DAILY 07/07/15 Cholecalciferol (Vitamin D3) [Vitamin D3] 2,000 unit PO DAILY 08/27/15 Clonazepam 0.5 mg PO PRN PRN 08/27/15 Lisinopril/Hydrochlorothiazide [Lisinopril-Hctz 20-25 mg Tab] 1 each PO DAILY Acetaminophen W/ Codeine #3 [Tylenol # 3 -] 1 tab PO Q4H #30 tablet MDD 6 Neurological Examination Alert oriented x 3 CN all intact, no face asymmetry, eomi moving all four extremity, she is able to walk on toes and heel she is able to do squat with slight difficulty sensation is normal there is loss of ankle and knee reflex in lower extremity she is able to walk normally and she denies any thoracic and low back pain Assessment- 1. 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 Advise to check for B12 , foalte tsh 2. Passing out episode is most likley to be syncope , unlikley to be seizure, carotid ultraosund is normal, no need for brain imaging at this time. Plan Patient can follow outpatient, no need for mri of whole spine to rule out cord compression. Thank you so much
--- NOTE | 2017-04-17 18:18 | HP ---
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 Cardiovascular: Yes: HTN, Hyperlipdemia Heme/Onc: Yes: Cancer - Past Surgical History Past Surgical History: Yes: Cholecystectomy, Hysterectomy - Smoking History Smoking history: Never smoked Have you smoked in the past 12 months: No Aproximately how many cigarettes per day: 0 - Alcohol/Substance Use Hx Alcohol Use: No - Social History ADL: Independent History of Recent Travel: No Home Medications - Allergies Allergies/Adverse Reactions: Allergies Allergy/AdvReac Type Severity Reaction Status Date / Time Penicillins Allergy Severe Rash Verified 03/01/17 22:39 - Home Medications Home Medications: Ambulatory Orders Aspirin Coated [Ecotrin -] 81 mg PO DAILY #0 tablet.ec 02/14/12 Atorvastatin Ca [Lipitor] 10 mg PO HS #0 tablet 02/14/12 Meclizine HCl 25 mg PO TID #0 tablet 02/14/12 Amlodipine Besylate 10 mg PO DAILY 07/07/15 Cholecalciferol (Vitamin D3) [Vitamin D3] 2,000 unit PO DAILY 08/27/15 Clonazepam 0.5 mg PO PRN PRN 08/27/15 Lisinopril/Hydrochlorothiazide [Lisinopril-Hctz 20-25 mg Tab] 1 each PO DAILY Acetaminophen W/ Codeine #3 [Tylenol # 3 -] 1 tab PO Q4H #30 tablet MDD 6 Family Disease History - Family Disease History Family Disease History: Heart Disease: Mother (CAD, unknown age) Physical Examination Vital Signs: Vital Signs Temperature 98.2 F 04/17/17 15:02 Pulse Rate 89 04/17/17 15:02 Respiratory Rate 18 04/17/17 15:02 Blood Pressure 129/75 04/17/17 15:02 O2 Sat by Pulse Oximetry (%) 94 L 04/17/17 10:00 Labs: CBC, BMP 04/17/17 11:58 04/17/17 11:58
--- NOTE | 2017-04-17 18:40 | EKG ---
Test Reason : Blood Pressure : / mmHG Vent. Rate : 078 BPM Atrial Rate : 078 BPM P-R Int : 146 ms QRS Dur : 086 ms QT Int : 410 ms P-R-T Axes : 039 -14 004 degrees QTc Int : 467 ms SINUS RHYTHM WITH PREMATURE ATRIAL COMPLEXES MODERATE VOLTAGE CRITERIA FOR LVH, MAY BE NORMAL VARIANT BORDERLINE ECG WHEN COMPARED WITH ECG OF 02-MAR-2017 01:12, PREMATURE VENTRICULAR COMPLEXES ARE NO LONGER PRESENT PREMATURE ATRIAL COMPLEXES ARE NOW PRESENT CLINICAL CORRELATION IS RECOMMENDED Confirmed by DILLON MARTINES MD ([id number]) on 04/17/2017 6:40:07 PM Referred By: Confirmed By:DILLON MARTINES MD
--- NOTE | 2017-04-17 20:31 | PN ---
Progress Note (short form) - Note Progress Note: Patient seen and examined. Prior notes reviewed Syncopal episode Neurology felt - no need for MANAGER WORK imaging Last Vital Signs Temp Pulse Resp BP Pulse Ox 97.9 F 87 20 116/62 94 L 04/17/17 17:00 04/17/17 17:00 04/17/17 17:00 04/17/17 17:00 04/17/17 10:00 HEENT: ADAN, EOM Intact Oropharynx: No thrush, No mucositis Neck: Supple Nodes: Without adenopathy Breasts: right breast mmass at 5:00 Cor: RSR, No murmurs, No gallops Lungs: Clear to P&A Abd: Soft, Normal bowel sounds, No organomegaly Ext:No significant edema Skin: No rashes, Integument intact Current Medications Generic Name Dose Route Start Last Admin Trade Name Freq PRN Reason Stop Dose Admin Acetaminophen/Codeine Phosphate 1 tab 04/17/17 10:56 Tylenol # 3 - PO Q6H PRN FEVER OR PAIN Amlodipine Besylate 10 mg 04/17/17 11:00 04/17/17 12:28 Norvasc - PO 10 mg DAILY KATHY Administration Aspirin 81 mg 04/17/17 11:00 04/17/17 12:28 Asa - PO 81 mg DAILY KATHY Administration Atorvastatin Calcium 10 mg 04/17/17 22:00 Lipitor - PO HS KATHY Clonazepam 0.5 mg 04/17/17 10:55 Klonopin - PO BID PRN ANXIETY Hydrochlorothiazide 25 mg 04/17/17 11:15 04/17/17 12:28 Hctz - PO 25 mg DAILY KATHY Administration Lidocaine/Aluminum/Magnesium/Simeth 5 ml 04/17/17 06:00 Magic Mouthwash *Sjr Formula* - MM Q6HPO KATHY Lisinopril 20 mg 04/17/17 11:15 04/17/17 12:28 Prinivil PO 20 mg DAILY KATHY Administration Meclizine HCl 25 mg 04/17/17 10:54 Antivert - PO TID PRN VERTIGO Pantoprazole Sodium 40 mg 04/17/17 11:00 04/17/17 12:28 Protonix - PO 40 mg DAILY KATHY Administration CBC, BMP 04/17/17 11:58 04/17/17 11:58 Impression: Syncope Breast ca - s/p Neoadjuvant therapy with taxol weekly x 12 and Perjeta and transtuzumab. Future plan- once current episode has resolved will be candidate for breast surgery.
[2017-04-17] MEDS ORDERED: ATORVASTATIN CA 10 MG TABLET (FP) PO SCH (22:00)
[2017-04-17] MEDS ORDERED: VANCOMYCIN 1 GRAM (PRE-DOCKED) 250 ML IVPB ONE (23:20)
[2017-04-18] MEDS: MAG HYDROX/ALH/SMC/DPHA/LIDO 240 ML MOUTHWASH MM SCH ×3 (05:59→13:00)
--- NOTE | 2017-04-18 08:18 | PN ---
Progress Note (short form) - Note Progress Note: Walking about the room, comfortably Carotid US and echo reviewed, no sig stenosis. LV fx normal. TELE has shown NSR without arrhythmias. Vitals reviewed. S1,2. RRR. Chest remains CTA No edema. Suspect dehydration with orthostatic drop in BP vs. vasovagal episode. REC: Can d/c home from cardiac standpoint with close outpatient f/u w/ PMD and Dr. Navarrete.
[2017-04-18] MEDS ORDERED: HYDROCHLOROTHIAZIDE 25 MG TABLET (FP) PO SCH (10:00)
[2017-04-18] MEDS ORDERED: PATIENT'S OWN MEDICATION (NON-FORMULARY) (Lisinopril/Hydrochlorothiazide [Lisinopril-Hctz PO SCH (10:00)
[2017-04-18] MEDS ORDERED: LISINOPRIL 20 MG TABLET (FP) PO SCH (10:00)
[2017-04-18] MEDS: amLODIPine BESYLATE 10 MG TABLET (FP) PO SCH (10:42)
[2017-04-18] MEDS: ASPIRIN 81 MG CHEWABLE TABLETS PO SCH (10:42)
[2017-04-18] MEDS: PANTOPRAZOLE 40 MG TABLET (FP) PO SCH (10:43)
[2017-04-18] MEDS: LISINOPRIL 20 MG TABLET (FP) PO SCH (10:43)
[2017-04-18] MEDS: HYDROCHLOROTHIAZIDE 25 MG TABLET (FP) PO SCH (10:43)
[2017-04-18 17:42] VITALS: BP 139/77; PULSE 69; TEMP 98.1
[2017-04-20 08:07] LABS: HEMATOCRIT 32.1 % (34.0-46.6)
== END 2017-04-18 18:23 | disposition home or self-care (01) ==
LOC: JER 21:34 → JERBED 04-17 00:14 → J4W 04-17 07:36
PROVIDERS: ADMIT Internal Medicine; ATTEND Internal Medicine
PROC: 3E033GC Introduction of Other Therapeutic Substance into Peripheral Vein, Percutaneous Approach (ICD-10-PCS; principal; 2017-04-17)
PROC: 3E0337Z Introduction of Electrolytic and Water Balance Substance into Peripheral Vein, Percutaneous Approach (ICD-10-PCS; 2017-04-17)
DX: R55 Syncope and collapse (principal); C50.919 Malignant neoplasm of unspecified site of unspecified female breast; I10 Essential (primary) hypertension; E78.5 Hyperlipidemia, unspecified; Z92.21 Personal history of antineoplastic chemotherapy; Z88.0 Allergy status to penicillin; Z79.82 Long term (current) use of aspirin; Z90.49 Acquired absence of other specified parts of digestive tract; Z90.710 Acquired absence of both cervix and uterus
CPT/HCPCS: 36415; 71010-TC; 80053; 81003; 82607; 82747; 84443; 84484; 85014; 85025; 87040; 87086; 93005; 93010; 93306-TC; 93880-TC; 97116-GP; 97161-GP; 99284-25; G0378; J8540

== ENCOUNTER 2017-05-07 07:51 | Day surgery (SDC) | payer OTHER ==
[2017-05-07] MEDS ORDERED: DEXAMETHASONE INJECTION 10 MG in SODIUM CHLORIDE 50 ML IVPB ONE (08:00)
[2017-05-07] MEDS ORDERED: SODIUM CHLORIDE IVPB ONE (08:30)
[2017-05-07] MEDS ORDERED: TRASTUZUMAB IVPB ONE (08:30)
[2017-05-07] MEDS ORDERED: SODIUM CHLORIDE 250 ML IV ONE (09:00)
[2017-05-07 10:51] LABS: EOSINOPHIL 3.7 % (0-4.5)
[2017-05-07 10:56] LABS: BASOPHIL 1.5 % (0-2.0); MCH 31.9 pg (25.7-33.7); MCHC 33.5 g/dl (32.0-36.0); MEAN CELL VOLUME 95.1 fl (80-96); MEAN PLT VOLUME 9.7 fl (7.5-11.1); NEUTROPHILS 59.5 % (42.8-82.8); PLATELET COUNT 243 K/MM3 (134-434); RDW 14.3 % (11.6-15.6); WHITE BLOOD COUNT 5.6 K/mm3 (4.0-10.0)
[2017-05-07 11:19] LABS: ALBUMIN 3.8 g/dl (3.4-5.0); ANION GAP 9 (8-16); CALCIUM 9.2 mg/dL (8.5-10.1); CO2 29 mmol/L (21-32); MAGNESIUM 2.3 mg/dL (1.8-2.4)
[2017-05-07 11:22] LABS: BILIRUBIN,DIRECT < 0.1 mg/dL (0.0-0.2); CREATININE 0.7 mg/dL (0.55-1.02); GLUCOSE,RANDOM 100 mg/dL (74-106); SGOT/AST 23 U/L (15-37); SGPT/ALT 26 U/L (12-78)
[2017-05-07 11:25] LABS: ALK PHOS 55 U/L (45-117); BILIRUBIN,TOTAL 0.4 mg/dL (0.2-1.0)
[2017-05-07 13:02] VITALS: TEMP 98.4
[2017-05-07] MEDS ORDERED: PORTA CATH FLUSH 10 ML IVPUSH ONE ×2 (13:05→15:44)
[2017-05-07 15:44] VITALS: BP 137/88; PULSE 79
== END 2017-05-07 14:25 | disposition home or self-care (01) ==
LOC: JONCCHEMO 07:51 → J7W 12:04 → JONCCHEMO 14:25
PROVIDERS: ATTEND Internal Medicine Hematology & Oncology
DX: Z51.11 Encounter for antineoplastic chemotherapy (principal); C50.311 Malignant neoplasm of lower-inner quadrant of right female breast
CPT/HCPCS: 36415; 80053; 80076; 82378; 83735; 85025; 86300; 96361; 96375; 96413; J9355

== ENCOUNTER 2017-06-18 07:05 | Day surgery (SDC) | payer OTHER ==
[2017-06-18] MEDS ORDERED: SODIUM CHLORIDE 250 ML IV ONE (10:00)
[2017-06-18] MEDS ORDERED: DEXAMETHASONE INJECTION 10 MG in SODIUM CHLORIDE 50 ML IVPB ONE (10:00)
[2017-06-18] MEDS ORDERED: TRASTUZUMAB IVPB ONE (10:30)
[2017-06-18] MEDS ORDERED: SODIUM CHLORIDE IVPB ONE (10:30)
[2017-06-18 10:58] LABS: BASOPHIL 1.4 % (0-2.0); EOSINOPHIL 5.9 % (0-4.5); MCH 31.4 pg (25.7-33.7); MCHC 33.9 g/dl (32.0-36.0); MEAN CELL VOLUME 92.8 fl (80-96); MEAN PLT VOLUME 9.7 fl (7.5-11.1); NEUTROPHILS 53.9 % (42.8-82.8); PLATELET COUNT 243 K/MM3 (134-434); RDW 12.8 % (11.6-15.6); WHITE BLOOD COUNT 4.2 K/mm3 (4.0-10.0)
[2017-06-18 11:26] LABS: ALBUMIN 3.8 g/dl (3.4-5.0); ALK PHOS 63 U/L (45-117); ANION GAP 7 (8-16); BILIRUBIN,DIRECT < 0.1 mg/dL (0.0-0.2); BILIRUBIN,TOTAL 0.3 mg/dL (0.2-1.0); CALCIUM 8.9 mg/dL (8.5-10.1); CO2 27 mmol/L (21-32); CREATININE 0.8 mg/dL (0.55-1.02); GLUCOSE,RANDOM 92 mg/dL (74-106); MAGNESIUM 2.4 mg/dL (1.8-2.4); SGOT/AST 22 U/L (15-37); SGPT/ALT 27 U/L (12-78); TOT PROT 7.9 g/dl (6.4-8.2)
[2017-06-18 12:31] VITALS: TEMP 98.1
[2017-06-18] MEDS ORDERED: PORTA CATH FLUSH 10 ML IVPUSH ONE (12:31)
[2017-06-18 14:30] VITALS: BP 132/90; PULSE 98
== END 2017-06-18 13:00 | disposition home or self-care (01) ==
LOC: JONCCHEMO 07:05 → J7W 10:44 → JONCCHEMO 13:00
PROVIDERS: ATTEND Internal Medicine Hematology & Oncology
DX: Z51.11 Encounter for antineoplastic chemotherapy (principal); C50.311 Malignant neoplasm of lower-inner quadrant of right female breast
CPT/HCPCS: 36415; 80048; 80076; 83735; 85025; 96361; 96375; 96413; J9355

== ENCOUNTER 2017-07-09 07:17 | Day surgery (SDC) | payer OTHER ==
[2017-07-09] MEDS ORDERED: DEXAMETHASONE INJECTION 10 MG in SODIUM CHLORIDE 50 ML IVPB ONE (10:00)
[2017-07-09] MEDS ORDERED: SODIUM CHLORIDE IVPB ONE (10:30)
[2017-07-09] MEDS ORDERED: TRASTUZUMAB IVPB ONE (10:30)
[2017-07-09 10:58] LABS: BASOPHIL 0.9 % (0-2.0); EOSINOPHIL 3.2 % (0-4.5); MCH 30.7 pg (25.7-33.7); MCHC 33.2 g/dl (32.0-36.0); MEAN CELL VOLUME 92.5 fl (80-96); MEAN PLT VOLUME 9.9 fl (7.5-11.1); NEUTROPHILS 62.4 % (42.8-82.8); PLATELET COUNT 194 K/MM3 (134-434); WHITE BLOOD COUNT 4.3 K/mm3 (4.0-10.0)
[2017-07-09] MEDS ORDERED: SODIUM CHLORIDE 250 ML IV ONE (11:00)
[2017-07-09 11:40] LABS: ALBUMIN 3.6 g/dl (3.4-5.0); ALK PHOS 59 U/L (45-117); ANION GAP 6 (8-16); BILIRUBIN,DIRECT < 0.2 mg/dL (0.0-0.2); BILIRUBIN,TOTAL 0.3 mg/dL (0.2-1.0); CALCIUM 8.5 mg/dL (8.5-10.1); CO2 28 mmol/L (21-32); CREATININE 0.7 mg/dL (0.55-1.02); GLUCOSE,RANDOM 93 mg/dL (74-106); MAGNESIUM 2.3 mg/dL (1.8-2.4); SGOT/AST 23 U/L (15-37); SGPT/ALT 24 U/L (12-78); TOT PROT 7.4 g/dl (6.4-8.2)
[2017-07-09 17:10] VITALS: BP 137/78; PULSE 80; TEMP 98.2
== END 2017-07-09 15:00 | disposition home or self-care (01) ==
LOC: JONCCHEMO 07:17 → J7W 11:38 → JONCCHEMO 15:00
PROVIDERS: ATTEND Internal Medicine Hematology & Oncology
DX: Z51.11 Encounter for antineoplastic chemotherapy (principal); C50.311 Malignant neoplasm of lower-inner quadrant of right female breast
CPT/HCPCS: 36415; 80053; 80076; 83735; 85025; 96361; 96367; 96375; 96413; J9355

== ENCOUNTER 2017-07-30 07:47 | Day surgery (SDC) | payer OTHER ==
[2017-07-30] MEDS ORDERED: DEXAMETHASONE INJECTION 10 MG in SODIUM CHLORIDE 50 ML IVPB ONE (08:00)
[2017-07-30] MEDS ORDERED: TRASTUZUMAB IVPB ONE (08:30)
[2017-07-30] MEDS ORDERED: SODIUM CHLORIDE IVPB ONE (08:30)
[2017-07-30] MEDS ORDERED: SODIUM CHLORIDE 250 ML IV ONE (09:00)
[2017-07-30 09:51] VITALS: TEMP 98.4
[2017-07-30 10:05] LABS: BASOPHIL 1.2 % (0-2.0); EOSINOPHIL 3.8 % (0-4.5); MCH 30.7 pg (25.7-33.7); MCHC 33.4 g/dl (32.0-36.0); MEAN PLT VOLUME 8.7 fl (7.5-11.1); NEUTROPHILS 63.4 % (42.8-82.8); PLATELET COUNT 183 K/MM3 (134-434); RDW 12.9 % (11.6-15.6); WHITE BLOOD COUNT 2.8 K/mm3 (4.0-10.0)
[2017-07-30 10:35] LABS: ALBUMIN 3.7 g/dl (3.4-5.0); ANION GAP 4 (8-16); BILIRUBIN,DIRECT < 0.2 mg/dL (0.0-0.2); CALCIUM 8.2 mg/dL (8.5-10.1); CO2 27 mmol/L (21-32); CREATININE 0.7 mg/dL (0.55-1.02); GLUCOSE,RANDOM 103 mg/dL (74-106); MAGNESIUM 2.2 mg/dL (1.8-2.4); SGOT/AST 22 U/L (15-37); SGPT/ALT 23 U/L (12-78)
[2017-07-30 10:37] LABS: ALK PHOS 57 U/L (45-117); BILIRUBIN,TOTAL 0.6 mg/dL (0.2-1.0); TOT PROT 7.5 g/dl (6.4-8.2)
[2017-07-30 11:45] VITALS: PULSE 74
[2017-07-30] MEDS ORDERED: PORTA CATH FLUSH 10 ML IVPUSH ONE (11:49)
[2017-07-30 12:24] VITALS: BP 120/60
== END 2017-07-30 12:35 | disposition home or self-care (01) ==
LOC: JONCCHEMO 07:47 → J7W 10:23 → JONCCHEMO 12:35
PROVIDERS: ATTEND Internal Medicine Hematology & Oncology
PROC: 3E04305 Introduction of Other Antineoplastic into Central Vein, Percutaneous Approach (ICD-10-PCS; principal; 2017-07-30)
PROC: 3E0433Z Introduction of Anti-inflammatory into Central Vein, Percutaneous Approach (ICD-10-PCS; 2017-07-30)
PROC: 3E0407Z Introduction of Electrolytic and Water Balance Substance into Central Vein, Open Approach (ICD-10-PCS; 2017-07-30)
DX: Z51.11 Encounter for antineoplastic chemotherapy (principal); C50.311 Malignant neoplasm of lower-inner quadrant of right female breast
CPT/HCPCS: 36415; 80053; 80076; 83735; 85025; 96361; 96375; 96413; J9355

== ENCOUNTER 2017-08-27 07:28 | Day surgery (SDC) | payer OTHER ==
[2017-08-27] MEDS ORDERED: DEXAMETHASONE SOD PHOSPHATE 10 MG/1 ML VIAL IVPUSH ONE (10:00)
[2017-08-27] MEDS ORDERED: TRASTUZUMAB IVPB ONE (10:30)
[2017-08-27] MEDS ORDERED: SODIUM CHLORIDE IVPB ONE (10:30)
[2017-08-27] MEDS ORDERED: SODIUM CHLORIDE 250 ML IV ONE (11:00)
[2017-08-27 12:14] LABS: BASO % 1.1 % (0-2.0); EOS % 4.4 % (0-4.5); HEMATOCRIT 37.8 % (32.4-45.2); HEMOGLOBIN 12.4 GM/dL (10.7-15.3); LYMPH % 19.3 % (8-40); MCH 30.3 pg (25.7-33.7); MCHC 32.9 g/dl (32.0-36.0); MEAN PLT VOLUME 9.3 fl (7.5-11.1); MONO % 11.8 % (3.8-10.2); NEUT % 63.4 % (42.8-82.8); PLATELET COUNT 217 K/MM3 (134-434); RBC 4.11 M/mm3 (3.60-5.2); RDW 13.9 % (11.6-15.6); WHITE BLOOD COUNT 4.1 K/mm3 (4.0-10.0)
[2017-08-27 12:38] LABS: ALBUMIN 3.4 g/dl (3.4-5.0); ANION GAP 9 (8-16); BLOOD UREA NITROGEN 18 mg/dL (7-18); CALCIUM 8.9 mg/dL (8.5-10.1); CHLORIDE 105 mmol/L (98-107); CO2 27 mmol/L (21-32); POTASSIUM 3.6 mmol/L (3.5-5.1); SODIUM 141 mmol/L (136-145)
[2017-08-27 12:43] LABS: BILIRUBIN,DIRECT < 0.2 mg/dL (0.0-0.2); BILIRUBIN,TOTAL 0.3 mg/dL (0.2-1.0); CREATININE 0.7 mg/dL (0.55-1.02); GLUCOSE,RANDOM 96 mg/dL (74-106); SGOT/AST 22 U/L (15-37); SGPT/ALT 24 U/L (12-78); TOT PROT 7.2 g/dl (6.4-8.2)
[2017-08-27 12:44] LABS: ALK PHOS 53 U/L (45-117)
[2017-08-27 16:28] VITALS: BP 123/74; PULSE 65; TEMP 97.8
[2017-08-27] MEDS ORDERED: PORTA CATH FLUSH 10 ML IVPUSH ONE (16:37)
== END 2017-08-27 15:30 | disposition home or self-care (01) ==
LOC: JONCCHEMO 07:28 → J7W 11:08 → JONCCHEMO 15:30
PROVIDERS: ATTEND Internal Medicine Hematology & Oncology
PROC: 3E04305 Introduction of Other Antineoplastic into Central Vein, Percutaneous Approach (ICD-10-PCS; principal; 2017-08-27)
PROC: 3E043GC Introduction of Other Therapeutic Substance into Central Vein, Percutaneous Approach (ICD-10-PCS; 2017-08-27)
PROC: 3E0437Z Introduction of Electrolytic and Water Balance Substance into Central Vein, Percutaneous Approach (ICD-10-PCS; 2017-08-27)
DX: Z51.11 Encounter for antineoplastic chemotherapy (principal); C50.311 Malignant neoplasm of lower-inner quadrant of right female breast; Z17.1 Estrogen receptor negative status [ER-]
CPT/HCPCS: 36415; 80048; 80076; 85025; 96361; 96367; 96413; J1100; J9355

== ENCOUNTER 2017-09-17 07:27 | Day surgery (SDC) | payer OTHER ==
[2017-09-17] MEDS ORDERED: DEXAMETHASONE SOD PHOSPHATE 10 MG/1 ML VIAL IVPUSH ONE (08:00)
[2017-09-17] MEDS ORDERED: TRASTUZUMAB IVPB ONE (08:30)
[2017-09-17] MEDS ORDERED: SODIUM CHLORIDE IVPB ONE (08:30)
[2017-09-17] MEDS ORDERED: SODIUM CHLORIDE 250 ML IV ONE (09:00)
[2017-09-17 10:21] LABS: BASO % 0.8 % (0-2.0); EOS % 3.4 % (0-4.5); HEMATOCRIT 36.5 % (32.4-45.2); HEMOGLOBIN 12.2 GM/dL (10.7-15.3); LYMPH % 16.2 % (8-40); MCH 30.5 pg (25.7-33.7); MCHC 33.4 g/dl (32.0-36.0); MEAN CELL VOLUME 91.4 fl (80-96); MEAN PLT VOLUME 9.1 fl (7.5-11.1); MONO % 12.3 % (3.8-10.2); NEUT % 67.3 % (42.8-82.8); PLATELET COUNT 185 K/MM3 (134-434); RDW 13.7 % (11.6-15.6); WHITE BLOOD COUNT 4.4 K/mm3 (4.0-10.0)
[2017-09-17 10:49] LABS: ALBUMIN 3.5 g/dl (3.4-5.0); ANION GAP 7 (8-16); BILIRUBIN,DIRECT < 0.2 mg/dL (0.0-0.2); BILIRUBIN,TOTAL 0.5 mg/dL (0.2-1.0); BLOOD UREA NITROGEN 15 mg/dL (7-18); CALCIUM 8.6 mg/dL (8.5-10.1); CHLORIDE 106 mmol/L (98-107); CO2 26 mmol/L (21-32); CREATININE 0.8 mg/dL (0.55-1.02); GLUCOSE,RANDOM 97 mg/dL (74-106); MAGNESIUM 2.2 mg/dL (1.8-2.4); SGOT/AST 23 U/L (15-37); SGPT/ALT 25 U/L (12-78); SODIUM 139 mmol/L (136-145); TOT PROT 7.3 g/dl (6.4-8.2)
[2017-09-17 10:50] LABS: ALK PHOS 60 U/L (45-117)
[2017-09-17] MEDS ORDERED: LISINOPRIL 20 MG TABLET (FP) PO ONE (12:00)
[2017-09-17] MEDS ORDERED: HYDROCHLOROTHIAZIDE 25 MG TABLET (FP) PO ONE (12:00)
[2017-09-17 15:51] VITALS: TEMP 97.9
[2017-09-17] MEDS ORDERED: PORTA CATH FLUSH 10 ML IVPUSH ONE (15:51)
[2017-09-17 15:55] VITALS: BP 149/73; PULSE 79
== END 2017-09-17 13:10 | disposition home or self-care (01) ==
LOC: JONCCHEMO 07:27 → J7W 10:55 → JONCCHEMO 13:10
PROVIDERS: ATTEND Internal Medicine Hematology & Oncology
DX: Z51.11 Encounter for antineoplastic chemotherapy (principal); C50.311 Malignant neoplasm of lower-inner quadrant of right female breast; Z17.1 Estrogen receptor negative status [ER-]
CPT/HCPCS: 36415; 80053; 80076; 83735; 85025; 96361; 96375; 96413; J1100; J9355

== ENCOUNTER 2017-10-09 07:28 | Day surgery (SDC) | payer OTHER ==
[2017-10-09] MEDS ORDERED: DEXAMETHASONE SOD PHOSPHATE 10 MG/1 ML VIAL IVPUSH ONE (10:00)
[2017-10-09 10:27] LABS: BASO % 1.9 % (0-2.0); EOS % 4.4 % (0-4.5); HEMATOCRIT 38.3 % (32.4-45.2); HEMOGLOBIN 12.6 GM/dL (10.7-15.3); LYMPH % 17.8 % (8-40); MCH 30.6 pg (25.7-33.7); MCHC 32.8 g/dl (32.0-36.0); MEAN CELL VOLUME 93.2 fl (80-96); MEAN PLT VOLUME 9.5 fl (7.5-11.1); MONO % 12.5 % (3.8-10.2); NEUT % 63.4 % (42.8-82.8); PLATELET COUNT 180 K/MM3 (134-434); RBC 4.11 M/mm3 (3.60-5.2); RDW 14.2 % (11.6-15.6)
[2017-10-09] MEDS ORDERED: SODIUM CHLORIDE IVPB ONE (10:30)
[2017-10-09] MEDS ORDERED: TRASTUZUMAB IVPB ONE (10:30)
[2017-10-09 10:48] LABS: ALBUMIN 3.8 g/dl (3.4-5.0); ALK PHOS 61 U/L (45-117); ANION GAP 7 (8-16); BILIRUBIN,DIRECT < 0.2 mg/dL (0.0-0.2); BILIRUBIN,TOTAL 0.5 mg/dL (0.2-1.0); BLOOD UREA NITROGEN 14 mg/dL (7-18); CALCIUM 8.2 mg/dL (8.5-10.1); CHLORIDE 108 mmol/L (98-107); CO2 26 mmol/L (21-32); CREATININE 0.8 mg/dL (0.55-1.02); GLUCOSE,RANDOM 97 mg/dL (74-106); MAGNESIUM 2.1 mg/dL (1.8-2.4); POTASSIUM 4.1 mmol/L (3.5-5.1); SGOT/AST 20 U/L (15-37); SGPT/ALT 21 U/L (12-78); SODIUM 141 mmol/L (136-145); TOT PROT 7.2 g/dl (6.4-8.2)
[2017-10-09] MEDS ORDERED: SODIUM CHLORIDE 250 ML IV ONE (11:00)
[2017-10-09 14:26] VITALS: BP 143/86; PULSE 92
[2017-10-09 14:27] VITALS: TEMP 98.4
== END 2017-10-09 13:15 | disposition home or self-care (01) ==
LOC: JONCCHEMO 07:28 → J7W 10:50 → JONCCHEMO 13:15
PROVIDERS: ATTEND Internal Medicine Hematology & Oncology
DX: Z51.11 Encounter for antineoplastic chemotherapy (principal); C56.9 Malignant neoplasm of unspecified ovary; D70.1 Agranulocytosis secondary to cancer chemotherapy
CPT/HCPCS: 36415; 80053; 80076; 83735; 85025; 96361; 96375; 96413; J1100; J9355

== ENCOUNTER 2017-10-29 07:35 | Day surgery (SDC) | payer OTHER ==
[2017-10-29 09:22] LABS: BASO % 1.5 % (0-2.0); EOS % 5.5 % (0-4.5); LYMPH % 21.1 % (8-40); MCH 31.9 pg (25.7-33.7); MCHC 34.2 g/dl (32.0-36.0); MEAN CELL VOLUME 93.3 fl (80-96); MEAN PLT VOLUME 9.6 fl (7.5-11.1); MONO % 12.7 % (3.8-10.2); NEUT % 59.2 % (42.8-82.8); PLATELET COUNT 184 K/MM3 (134-434); RBC 4.08 M/mm3 (3.60-5.2); RDW 13.6 % (11.6-15.6); WHITE BLOOD COUNT 3.5 K/mm3 (4.0-10.0)
[2017-10-29] MEDS ORDERED: DEXAMETHASONE SOD PHOSPHATE 10 MG/1 ML VIAL IVPUSH ONE (10:00)
[2017-10-29 10:05] LABS: ALBUMIN 3.9 g/dl (3.4-5.0); ALK PHOS 61 U/L (45-117); ANION GAP 4 (8-16); BILIRUBIN,DIRECT < 0.2 mg/dL (0.0-0.2); BILIRUBIN,TOTAL 0.5 mg/dL (0.2-1.0); BLOOD UREA NITROGEN 14 mg/dL (7-18); CALCIUM 8.4 mg/dL (8.5-10.1); CHLORIDE 109 mmol/L (98-107); CO2 28 mmol/L (21-32); CREATININE 0.8 mg/dL (0.55-1.02); GLUCOSE,RANDOM 97 mg/dL (74-106); MAGNESIUM 2.2 mg/dL (1.8-2.4); POTASSIUM 4.2 mmol/L (3.5-5.1); SGOT/AST 18 U/L (15-37); SGPT/ALT 19 U/L (12-78); SODIUM 141 mmol/L (136-145); TOT PROT 7.4 g/dl (6.4-8.2)
[2017-10-29] MEDS ORDERED: SODIUM CHLORIDE IVPB ONE (10:30)
[2017-10-29] MEDS ORDERED: TRASTUZUMAB IVPB ONE (10:30)
[2017-10-29] MEDS ORDERED: SODIUM CHLORIDE 250 ML IV ONE (11:00)
[2017-10-29 17:06] VITALS: TEMP 98
[2017-10-29] MEDS ORDERED: PORTA CATH FLUSH 10 ML IVPUSH ONE (17:06)
[2017-10-29 17:10] VITALS: BP 131/71; PULSE 84
== END 2017-10-29 19:00 | disposition home or self-care (01) ==
LOC: JONCCHEMO 07:35 → J7W 09:25 → JONCCHEMO 19:00
PROVIDERS: ATTEND Internal Medicine Hematology & Oncology
DX: Z51.11 Encounter for antineoplastic chemotherapy (principal); C56.9 Malignant neoplasm of unspecified ovary; D70.1 Agranulocytosis secondary to cancer chemotherapy
CPT/HCPCS: 36415; 80053; 80076; 83735; 85025; 96361; 96367; 96375; 96413; J1100; J9355

== ENCOUNTER 2017-11-19 07:33 | Day surgery (SDC) | payer OTHER ==
[2017-11-19] MEDS ORDERED: DEXAMETHASONE SOD PHOSPHATE 10 MG/1 ML VIAL IVPUSH ONE (08:00)
[2017-11-19] MEDS ORDERED: TRASTUZUMAB IVPB ONE (08:30)
[2017-11-19] MEDS ORDERED: SODIUM CHLORIDE IVPB ONE (08:30)
[2017-11-19] MEDS ORDERED: SODIUM CHLORIDE 250 ML IV ONE (09:00)
[2017-11-19 10:25] LABS: BASO % 1.3 % (0-2.0); EOS % 7.2 % (0-4.5); HEMATOCRIT 37.6 % (32.4-45.2); HEMOGLOBIN 12.7 GM/dL (10.7-15.3); LYMPH % 20.8 % (8-40); MCH 31.8 pg (25.7-33.7); MCHC 33.7 g/dl (32.0-36.0); MEAN CELL VOLUME 94.4 fl (80-96); MEAN PLT VOLUME 10.1 fl (7.5-11.1); MONO % 12.2 % (3.8-10.2); NEUT % 58.5 % (42.8-82.8); PLATELET COUNT 163 K/MM3 (134-434); RBC 3.98 M/mm3 (3.60-5.2); RDW 13.5 % (11.6-15.6); WHITE BLOOD COUNT 3.5 K/mm3 (4.0-10.0)
[2017-11-19 10:57] LABS: CHLORIDE 110 mmol/L (98-107); POTASSIUM 4.2 mmol/L (3.5-5.1); SODIUM 142 mmol/L (136-145)
[2017-11-19 11:04] LABS: ALBUMIN 3.7 g/dl (3.4-5.0); ALK PHOS 61 U/L (45-117); ANION GAP 5 (8-16); BILIRUBIN,DIRECT < 0.2 mg/dL (0.0-0.2); BILIRUBIN,TOTAL 0.4 mg/dL (0.2-1.0); BLOOD UREA NITROGEN 16 mg/dL (7-18); CALCIUM 8.7 mg/dL (8.5-10.1); CO2 27 mmol/L (21-32); CREATININE 0.7 mg/dL (0.55-1.02); GLUCOSE,RANDOM 91 mg/dL (74-106); MAGNESIUM 2.2 mg/dL (1.8-2.4); SGOT/AST 23 U/L (15-37); SGPT/ALT 22 U/L (12-78); TOT PROT 7.1 g/dl (6.4-8.2)
[2017-11-19 11:07] LABS: ALK PHOS 61 U/L (45-117); BILIRUBIN,TOTAL 0.4 mg/dL (0.2-1.0); SGOT/AST 23 U/L (15-37); SGPT/ALT 22 U/L (12-78)
[2017-11-19] MEDS ORDERED: DEXAMETHASONE SOD PHOSPHATE 10 MG/1 ML VIAL ONE (11:22)
[2017-11-19] MEDS ORDERED: amLODIPine BESYLATE 5 MG TABLET (FP) PO PRN (11:45)
[2017-11-19] MEDS ORDERED: PORTA CATH FLUSH 10 ML IVPUSH ONE (12:46)
[2017-11-19 13:16] VITALS: BP 157/93; PULSE 84
[2017-11-19 13:17] VITALS: TEMP 98
== END 2017-11-19 13:20 | disposition home or self-care (01) ==
LOC: JONCCHEMO 07:33 → J7W 11:07 → JONCCHEMO 13:20
PROVIDERS: ATTEND Internal Medicine Hematology & Oncology
DX: Z51.11 Encounter for antineoplastic chemotherapy (principal); C50.919 Malignant neoplasm of unspecified site of unspecified female breast
CPT/HCPCS: 36415; 80053; 80076; 82378; 83735; 85025; 86300; 96361; 96413; J1100; J9355

== ENCOUNTER 2017-12-10 07:43 | Day surgery (SDC) | payer OTHER ==
[2017-12-10] MEDS ORDERED: DEXAMETHASONE SOD PHOSPHATE 10 MG/1 ML VIAL IVPUSH ONE (10:00)
[2017-12-10] MEDS ORDERED: TRASTUZUMAB IVPB ONE (10:30)
[2017-12-10] MEDS ORDERED: SODIUM CHLORIDE IVPB ONE (10:30)
[2017-12-10 10:52] LABS: BASO % 0.8 % (0-2.0); EOS % 6.8 % (0-4.5); HEMATOCRIT 37.9 % (32.4-45.2); HEMOGLOBIN 12.9 GM/dL (10.7-15.3); LYMPH % 21.7 % (8-40); MCH 32.1 pg (25.7-33.7); MCHC 34.1 g/dl (32.0-36.0); MEAN CELL VOLUME 94.1 fl (80-96); MEAN PLT VOLUME 10.3 fl (7.5-11.1); MONO % 13.6 % (3.8-10.2); NEUT % 57.1 % (42.8-82.8); PLATELET COUNT 190 K/MM3 (134-434); RBC 4.03 M/mm3 (3.60-5.2); RDW 13.1 % (11.6-15.6); WHITE BLOOD COUNT 3.9 K/mm3 (4.0-10.0)
[2017-12-10] MEDS ORDERED: SODIUM CHLORIDE 250 ML IV ONE (11:00)
[2017-12-10 11:09] LABS: ALBUMIN 3.6 g/dl (3.4-5.0); ANION GAP 7 (8-16); BILIRUBIN,DIRECT < 0.2 mg/dL (0.0-0.2); BLOOD UREA NITROGEN 17 mg/dL (7-18); CALCIUM 8.7 mg/dL (8.5-10.1); CHLORIDE 107 mmol/L (98-107); CO2 26 mmol/L (21-32); CREATININE 0.7 mg/dL (0.55-1.02); GLUCOSE,RANDOM 91 mg/dL (74-106); POTASSIUM 4.1 mmol/L (3.5-5.1); SGOT/AST 26 U/L (15-37); SGPT/ALT 22 U/L (12-78); SODIUM 140 mmol/L (136-145)
[2017-12-10 11:11] LABS: ALK PHOS 66 U/L (45-117); BILIRUBIN,TOTAL 0.5 mg/dL (0.2-1.0); TOT PROT 7.3 g/dl (6.4-8.2)
[2017-12-10 13:40] VITALS: BP 148/93; PULSE 79
[2017-12-10] MEDS ORDERED: PORTA CATH FLUSH 10 ML IVPUSH ONE (13:40)
[2017-12-10 13:43] VITALS: TEMP 97.9
== END 2017-12-10 13:15 | disposition home or self-care (01) ==
LOC: JONCCHEMO 07:43 → J7W 11:09 → JONCCHEMO 13:15
PROVIDERS: ATTEND Internal Medicine Hematology & Oncology
DX: Z51.11 Encounter for antineoplastic chemotherapy (principal); C50.919 Malignant neoplasm of unspecified site of unspecified female breast
CPT/HCPCS: 36415; 80053; 80076; 82378; 83735; 85025; 86300; 96361; 96367; 96413; J1100; J9355

== ENCOUNTER 2018-01-02 07:45 | Day surgery (SDC) | payer OTHER ==
[2018-01-02] MEDS ORDERED: DEXAMETHASONE INJECTION 10 MG in SODIUM CHLORIDE 50 ML IVPB ONE (08:00)
[2018-01-02] MEDS ORDERED: SODIUM CHLORIDE IVPB ONE (08:30)
[2018-01-02] MEDS ORDERED: TRASTUZUMAB IVPB ONE (08:30)
[2018-01-02] MEDS ORDERED: SODIUM CHLORIDE 250 ML IV ONE (09:00)
[2018-01-02 10:25] LABS: BASO % 1.3 % (0-2.0); EOS % 6.4 % (0-4.5); HEMATOCRIT 39.6 % (32.4-45.2); HEMOGLOBIN 13.3 GM/dL (10.7-15.3); LYMPH % 20.5 % (8-40); MCH 31.6 pg (25.7-33.7); MCHC 33.5 g/dl (32.0-36.0); MEAN CELL VOLUME 94.4 fl (80-96); MEAN PLT VOLUME 10.2 fl (7.5-11.1); MONO % 11.4 % (3.8-10.2); NEUT % 60.4 % (42.8-82.8); PLATELET COUNT 203 K/MM3 (134-434); RBC 4.19 M/mm3 (3.60-5.2); RDW 12.9 % (11.6-15.6); WHITE BLOOD COUNT 4.1 K/mm3 (4.0-10.0)
[2018-01-02 10:51] LABS: ALBUMIN 3.8 g/dl (3.4-5.0); ANION GAP 8 (8-16); BILIRUBIN,DIRECT < 0.2 mg/dL (0.0-0.2); BLOOD UREA NITROGEN 13 mg/dL (7-18); CALCIUM 8.8 mg/dL (8.5-10.1); CHLORIDE 107 mmol/L (98-107); CO2 27 mmol/L (21-32); CREATININE 0.8 mg/dL (0.55-1.02); GLUCOSE,RANDOM 99 mg/dL (74-106); MAGNESIUM 2.3 mg/dL (1.8-2.4); POTASSIUM 4.3 mmol/L (3.5-5.1); SGOT/AST 23 U/L (15-37); SGPT/ALT 23 U/L (12-78); SODIUM 142 mmol/L (136-145)
[2018-01-02 10:53] LABS: ALK PHOS 67 U/L (45-117); BILIRUBIN,TOTAL 0.7 mg/dL (0.2-1.0); TOT PROT 7.5 g/dl (6.4-8.2)
[2018-01-02 11:56] VITALS: TEMP 97.9
[2018-01-02 15:56] VITALS: BP 140/82; PULSE 67
== END 2018-01-02 13:10 | disposition home or self-care (01) ==
LOC: JONCCHEMO 07:45 → J7W 10:52 → JONCCHEMO 13:10
PROVIDERS: ATTEND Internal Medicine Hematology & Oncology
PROC: 3E04305 Introduction of Other Antineoplastic into Central Vein, Percutaneous Approach (ICD-10-PCS; principal; 2018-01-02)
PROC: 3E043GC Introduction of Other Therapeutic Substance into Central Vein, Percutaneous Approach (ICD-10-PCS; 2018-01-02)
PROC: 3E0437Z Introduction of Electrolytic and Water Balance Substance into Central Vein, Percutaneous Approach (ICD-10-PCS; 2018-01-02)
DX: Z51.11 Encounter for antineoplastic chemotherapy (principal); C50.311 Malignant neoplasm of lower-inner quadrant of right female breast; Z17.1 Estrogen receptor negative status [ER-]; I10 Essential (primary) hypertension
CPT/HCPCS: 36415; 80053; 80076; 82378; 83735; 85025; 86300; 96361; 96375; 96413; J1100; J9355

== ENCOUNTER 2018-01-21 07:28 | Day surgery (SDC) | payer OTHER ==
[2018-01-21] MEDS ORDERED: DEXAMETHASONE INJECTION 10 MG in SODIUM CHLORIDE 100 ML IVPB ONE (08:00)
[2018-01-21] MEDS ORDERED: SODIUM CHLORIDE IVPB ONE (08:30)
[2018-01-21] MEDS ORDERED: TRASTUZUMAB IVPB ONE (08:30)
[2018-01-21] MEDS ORDERED: SODIUM CHLORIDE 250 ML IV ONE (09:00)
[2018-01-21 09:56] LABS: BASO % 0.7 % (0-2.0); HEMATOCRIT 39.1 % (32.4-45.2); HEMOGLOBIN 13.1 GM/dL (10.7-15.3); LYMPH % 11.7 % (8-40); MCH 31.5 pg (25.7-33.7); MCHC 33.6 g/dl (32.0-36.0); MEAN CELL VOLUME 93.8 fl (80-96); MEAN PLT VOLUME 9.5 fl (7.5-11.1); MONO % 9.1 % (3.8-10.2); NEUT % 75.5 % (42.8-82.8); PLATELET COUNT 200 K/MM3 (134-434); RBC 4.16 M/mm3 (3.60-5.2); RDW 13.3 % (11.6-15.6); WHITE BLOOD COUNT 5.4 K/mm3 (4.0-10.0)
[2018-01-21 10:23] LABS: ALBUMIN 3.9 g/dl (3.4-5.0); ANION GAP 4 (8-16); BILIRUBIN,TOTAL 0.6 mg/dL (0.2-1.0); BLOOD UREA NITROGEN 18 mg/dL (7-18); CALCIUM 8.8 mg/dL (8.5-10.1); CHLORIDE 107 mmol/L (98-107); CO2 30 mmol/L (21-32); CREATININE 0.9 mg/dL (0.55-1.02); GLUCOSE,RANDOM 106 mg/dL (74-106); POTASSIUM 4.3 mmol/L (3.5-5.1); SGOT/AST 25 U/L (15-37); SGPT/ALT 27 U/L (12-78); SODIUM 141 mmol/L (136-145); TOT PROT 7.5 g/dl (6.4-8.2)
[2018-01-21 10:24] LABS: ALK PHOS 66 U/L (45-117)
[2018-01-21 10:37] VITALS: BP 142/78; PULSE 69; TEMP 98
[2018-01-21 12:13] LABS: BILIRUBIN,DIRECT < 0.2 mg/dL (0.0-0.2); MAGNESIUM 2.1 mg/dL (1.8-2.4)
[2018-01-21] MEDS ORDERED: PORTA CATH FLUSH 10 ML IVPUSH ONE ×2 (13:00→15:04)
== END 2018-01-21 12:30 | disposition home or self-care (01) ==
LOC: JONCCHEMO 07:28 → J7W 10:13 → JONCCHEMO 12:30
PROVIDERS: ATTEND Internal Medicine Hematology & Oncology
PROC: 3E04305 Introduction of Other Antineoplastic into Central Vein, Percutaneous Approach (ICD-10-PCS; principal; 2018-01-21)
PROC: 3E043GC Introduction of Other Therapeutic Substance into Central Vein, Percutaneous Approach (ICD-10-PCS; 2018-01-21)
PROC: 3E0437Z Introduction of Electrolytic and Water Balance Substance into Central Vein, Percutaneous Approach (ICD-10-PCS; 2018-01-21)
DX: Z51.11 Encounter for antineoplastic chemotherapy (principal); C50.311 Malignant neoplasm of lower-inner quadrant of right female breast; Z17.1 Estrogen receptor negative status [ER-]; I10 Essential (primary) hypertension; E78.00 Pure hypercholesterolemia, unspecified; M19.90 Unspecified osteoarthritis, unspecified site
CPT/HCPCS: 36415; 80053; 80076; 83735; 85025; 96361; 96375; 96413; J1100; J9355

== ENCOUNTER 2018-02-11 07:23 | Day surgery (SDC) | payer OTHER ==
[2018-02-11] MEDS ORDERED: DEXAMETHASONE INJECTION 10 MG in SODIUM CHLORIDE 50 ML IVPB ONE (10:00)
[2018-02-11 10:04] LABS: BASO % 1.2 % (0-2.0); EOS % 5.8 % (0-4.5); HEMATOCRIT 37.7 % (32.4-45.2); HEMOGLOBIN 12.9 GM/dL (10.7-15.3); LYMPH % 23.3 % (8-40); MCH 31.9 pg (25.7-33.7); MCHC 34.2 g/dl (32.0-36.0); MEAN CELL VOLUME 93.3 fl (80-96); MEAN PLT VOLUME 9.4 fl (7.5-11.1); MONO % 12.5 % (3.8-10.2); NEUT % 57.2 % (42.8-82.8); PLATELET COUNT 189 K/MM3 (134-434); RBC 4.04 M/mm3 (3.60-5.2); RDW 12.9 % (11.6-15.6); WHITE BLOOD COUNT 3.4 K/mm3 (4.0-10.0)
[2018-02-11] MEDS ORDERED: SODIUM CHLORIDE IVPB ONE (10:30)
[2018-02-11] MEDS ORDERED: TRASTUZUMAB IVPB ONE (10:30)
[2018-02-11 10:40] LABS: ALBUMIN 3.8 g/dl (3.4-5.0); ALK PHOS 70 U/L (45-117); ANION GAP 8 (8-16); BILIRUBIN,DIRECT < 0.2 mg/dL (0.0-0.2); BILIRUBIN,TOTAL 0.5 mg/dL (0.2-1.0); BLOOD UREA NITROGEN 15 mg/dL (7-18); CALCIUM 8.6 mg/dL (8.5-10.1); CHLORIDE 111 mmol/L (98-107); CO2 24 mmol/L (21-32); CREATININE 0.8 mg/dL (0.55-1.02); GLUCOSE,RANDOM 91 mg/dL (74-106); MAGNESIUM 2.2 mg/dL (1.8-2.4); POTASSIUM 4.2 mmol/L (3.5-5.1); SGOT/AST 29 U/L (15-37); SGPT/ALT 28 U/L (12-78); SODIUM 143 mmol/L (136-145); TOT PROT 7.3 g/dl (6.4-8.2)
[2018-02-11] MEDS ORDERED: SODIUM CHLORIDE 250 ML IV ONE (11:00)
[2018-02-11 12:21] VITALS: TEMP 98.1
[2018-02-11] MEDS ORDERED: PORTA CATH FLUSH 10 ML IVPUSH ONE (12:24)
[2018-02-11 15:37] VITALS: BP 150/80; PULSE 71
== END 2018-02-11 12:45 | disposition home or self-care (01) ==
LOC: JONCCHEMO 07:23 → J7W 10:37 → JONCCHEMO 12:45
PROVIDERS: ATTEND Internal Medicine Hematology & Oncology
DX: Z51.11 Encounter for antineoplastic chemotherapy (principal); C50.311 Malignant neoplasm of lower-inner quadrant of right female breast
CPT/HCPCS: 36415; 80053; 80076; 83735; 85025; 96361; 96367; 96375; 96413; J1100; J9355

== ENCOUNTER 2018-04-10 11:01 | Day surgery (SDC) | payer OTHER ==
[2018-04-10 18:08] VITALS: BP 148/101; PULSE 93; TEMP 98
[2018-04-10] MEDS ORDERED: PORTA CATH FLUSH 10 ML IVPUSH ONE (18:13)
== END 2018-04-10 11:40 | disposition home or self-care (01) ==
LOC: JONCNONCHE 11:01
PROVIDERS: ATTEND Internal Medicine Hematology & Oncology
PROC: 3C1ZX8Z Irrigation of Indwelling Device using Irrigating Substance, External Approach (ICD-10-PCS; principal; 2018-04-10)
DX: Z45.2 Encounter for adjustment and management of vascular access device (principal); C50.311 Malignant neoplasm of lower-inner quadrant of right female breast
CPT/HCPCS: 96523

== ENCOUNTER 2019-02-21 10:13 | Emergency (ER) | payer OTHER ==
[2019-02-21 10:32] VITALS: BP 161/82; PULSE 85; TEMP 98.3; BMI 26.2
[2019-02-21] MEDS ORDERED: IBUPROFEN 600 MG TABLET (FP) PO ONE ×2 (11:15→11:22)
--- NOTE | 2019-02-21 11:43 | PDOC ---
Documentation entered by Mahamed Sauceda SCRIBE, acting as scribe for Ronaldo Cabrera MD. Ronaldo Cabrera MD: This documentation has been prepared by the Sohail franklin Elijah, SCRIBE, under my direction and personally reviewed by me in its entirety. I confirm that the documentation accurately reflects all work, treatment, procedures, and medical decision making performed by me. History of Present Illness - General Stated Complaint: SORE THROAT Time Seen by Provider: 02/21/19 10:59 History Source: Patient Exam Limitations: No Limitations - History of Present Illness Initial Comments: 02/21/19 11:23 Patient is a 78 year old female with a significant past medical history of breast cancer (s/p Chemo and radiation, last tx 3 months ago), HTN, and HLD who presents to the ED with a headache and a sore throat last night. Patient reports having a headache for the last two days that has since subsided. Last night the patient felt pain in the back of her throat, which has also resolved. Pt states that her PMD told her she had a thyroid nodule and scheduled her for a thyroid US. Pt became concerned last night that her sore throat could be a sign of throat cancer, prompting her to come to the ED today. Patient has an appointment for a thyroid US in 6 months. In ED, pt has no acute complaints at this time. Allergies: Penicillins Past History - Past Medical History Allergies/Adverse Reactions: Allergies Allergy/AdvReac Type Severity Reaction Status Date / Time Penicillins Allergy Severe Rash Verified 02/21/19 10:24 Home Medications: Ambulatory Orders Aspirin Coated [Ecotrin -] 81 mg PO DAILY #0 tablet.ec 02/14/12 Cholecalciferol (Vitamin D3) [Vitamin D3] 2,000 unit PO DAILY 08/27/15 Clonazepam 0.5 mg PO PRN PRN 08/27/15 Lisinopril/Hydrochlorothiazide [Lisinopril-Hctz 20-25 mg Tab] 1 each PO DAILY Amlodipine Besylate [Norvasc -] 10 mg PO DAILY #0 tablet 04/18/17 Anemia: No Asthma: No Cancer: Yes (BREAST CANCER) Cardiac Disorders: No CVA: No COPD: No CHF: No Dementia: No Diabetes: No GI Disorders: Yes (gall stones) Disorders: Yes (URINARY URGENCY) HTN: Yes Hypercholesterolemia: Yes Liver Disease: No Seizures: No Thyroid Disease: No - Surgical History Abdominal Surgery: No Appendectomy: No Cardiac Surgery: No Cholecystectomy: Yes Lung Surgery: No Neurologic Surgery: No Orthopedic Surgery: No - Suicide/Smoking/Psychosocial Hx Smoking Status: No Smoking History: Never smoked Have you smoked in the past 12 months: No Number of Cigarettes Smoked Daily: 0 Hx Alcohol Use: No Drug/Substance Use Hx: No Substance Use Type: None Hx Substance Use Treatment: No Review of Systems - Review of Systems Comments:: 02/21/19 11:23 GENERAL/CONSTITUTIONAL: No fever or chills. No weakness. HEAD, EYES, EARS, NOSE AND THROAT: + Headache. +Sore Throat. No change in vision. No ear pain or discharge. CARDIOVASCULAR: No chest pain, no loss of consciousness RESPIRATORY: No cough, wheezing, or hemoptysis. GASTROINTESTINAL: No nausea, vomiting, diarrhea or constipation. GENITOURINARY: No dysuria, frequency, or change in urination. MUSCULOSKELETAL: No joint or muscle swelling or pain. No neck or back pain. SKIN: No rash NEUROLOGIC: No vertigo, no change in strength/sensation. ENDOCRINE: No increased thirst. No abnormal weight change. HEMATOLOGIC/LYMPHATIC: No anemia, easy bleeding, or history of blood clots. ALLERGIC/IMMUNOLOGIC: No hives or skin allergy. *Physical Exam - Vital Signs Last Vital Signs Temp Pulse Resp BP Pulse Ox 98.3 F 85 18 161/82 97 02/21/19 10:30 02/21/19 10:30 02/21/19 10:30 02/21/19 10:30 02/21/19 10:30 - Physical Exam Comments: 02/21/19 11:24 GENERAL: Awake, alert, and fully oriented, in no acute distress. HEAD: No signs of trauma EYES: PERRLA, EOMI, sclera anicteric, conjunctiva clear ENT: + erythematous posterior OP with cobblestoning, Auricles normal inspection , hearing grossly normal, nares patent, oropharynx without exudates. Moist mucosa NECK: Nontender, no stepoffs, Normal ROM, supple, no lymphadenopathy, JVD, or masses LUNGS: Breath sounds equal, clear to auscultation bilaterally. No wheezes, and no crackles HEART: Regular rate and rhythm, normal S1 and S2, no murmurs, rubs or gallops ABDOMEN: Soft, nontender, normoactive bowel sounds. No guarding, no rebound. No masses EXTREMITIES: Normal range of motion, no edema. No clubbing or cyanosis. No cords, erythema, or tenderness NEUROLOGICAL: Cranial nerves II through XII intact. 5/5 strength and sensation in all extremities, Normal speech, normal gait, normal cerebellar function SKIN: Warm, Dry, normal turgor, no rashes or lesions noted. Medical Decision Making - Medical Decision Making 02/21/19 11:46 78 F with sore throat and headache, both resolved. Pt with mildly erythematous oropharynx with cobblestoning. Possible viral vs allergic pharyngitis. - Rapid strep - Motrin 02/21/19 12:06 Rapid strep negative Culture sent Pt is well appearing, with normal vitals. Clinically stable for DC at this time. I discussed the physical exam findings, ancillary test results and final diagnoses with the patient. I answered all of the patient's questions. The patient was satisfied with the care received and felt comfortable with the discharge plan and treatment plan. The patient agrees to follow up with the primary care physician within 24-72 hours. *DC/Admit/Observation/Transfer Diagnosis at time of Disposition: Pharyngitis - Discharge Dispostion Disposition: HOME - Referrals - Patient Instructions Printed Discharge Instructions: DI for Viral Pharyngitis Additional Instructions: Your sore throat is likely due to allergies or a viral infection. Take tylenol or motrin as needed to pain. I have sent you allergy medication to your pharmacy. Take it as prescribed. If you experience worsening pain, difficulty swallowing or breathing, fevers, or any other concerning symptoms, return to the ER immediately. Otherwise, follow up with your primary doctor within 1 week. - Post Discharge Activity - Attestations Physician Attestion: 02/21/19 12:13 I, Dr. Ronaldo Cabrera MD, attest that this document has been prepared under my direction and personally reviewed by me in its entirety. I further attest, that it accurately reflects all work, treatment, procedures and medical decision -making performed by me.
== END 2019-02-21 12:52 | disposition home or self-care (01) ==
LOC: JER 10:13
DX: J02.9 Acute pharyngitis, unspecified (principal); I10 Essential (primary) hypertension; E78.5 Hyperlipidemia, unspecified; Z85.3 Personal history of malignant neoplasm of breast
CPT/HCPCS: 87070; 87880; 99282-25

== ENCOUNTER → 2019-10-27 | Day surgery (SDC) | payer OTHER ==
--- NOTE | 2019-10-28 17:25 | PATH ---
Cytology Non-Gynecological Report Patient Name: MAKENNA VILLAREAL [facility]. Rec. #: [id number] /Age/Gender: 1940 (Age: 79) / F Account: [id number] Location: RADIOLOGY INTER Taken: 10/27/2019 Received: 10/27/2019 Reported: 10/28/2019 Physicians: Lul Farrell M.D. Specimen(s) Received THYROID, LEFT, FINE NEEDLE ASPIRATION Clinical History Left lobe, 1.33 x 0.78 x 1.41 cm Final Diagnosis THYROID, LEFT, FINE NEEDLE ASPIRATION: UNSATISFACTORY FOR EVALUATION. BETHESDA CLASS I: RARE FOLLICULAR CELLS, RARE MACROPHAGES, AND SCANT COLLOID (NON-DIAGNOSTIC). RARE FOLLICULAR CELLS, RARE MACROPHAGES IN A BACKGROUND SCANT COLLOID PRESENT. Comment: The specimen has insufficient follicular cell clusters and/or colloid; and suboptimal for complete cytopathologic evaluation according to [facility] for Reporting Thyroid FNA. If the nodule has worrisome ultrasound imaging properties, a repeat FNA, would be appropriate. Electronically Signed Tarah Sheldon M.D. Gross Description Received are eight direct smears, four of which are air-dried and Diff-Quik stained, and four of which are alcohol fixed and Pap stained. Also received is 20 ml of bloody formalin from which one cellblock is prepared.
== END | disposition home or self-care (01) ==
LOC: JRADIR 10:07
PROVIDERS: ATTEND Internal Medicine Endocrinology, Diabetes & Metabolism
PROC: 0G9G3ZX Drainage of Left Thyroid Gland Lobe, Percutaneous Approach, Diagnostic (ICD-10-PCS; principal; 2019-10-27)
DX: E04.1 Nontoxic single thyroid nodule (principal)
CPT/HCPCS: 76942; 88173; 88305-TC

== ENCOUNTER 2020-09-14 15:06 | Inpatient (IN) | payer OTHER ==
[2020-09-14 15:33] VITALS: BMI 26.2
[2020-09-14] MEDS ORDERED: ACETAMINOPHEN 1000 MG/100 ML VIAL (NON FORMULARY) IVPB ONE (16:05)
[2020-09-14] MEDS ORDERED: ONDANSETRON 4 MG/2 ML VIAL IVPUSH ONE (16:05)
[2020-09-14] MEDS ORDERED: SODIUM CHLORIDE 1,000 ML IV STA (16:06)
[2020-09-14] MEDS ORDERED: FAMOTIDINE 20 MG/50 ML IVPB 20 MG/50 ML MG IVPB ONE ×2 (16:33→16:52)
[2020-09-14] MEDS ORDERED: ONDANSETRON 4 MG/2 ML VIAL ONE (16:51)
[2020-09-14] MEDS ORDERED: ACETAMINOPHEN INJECTION 100 ML IVPB ONE (16:51)
[2020-09-14 17:53] LABS: BASO % 0.5 % (0-2.0); EOS % 0.1 % (0-4.5); HEMATOCRIT 39.9 % (32.4-45.2); HEMOGLOBIN 13.4 GM/dL (10.7-15.3); MCH 31.7 pg (25.7-33.7); MCHC 33.5 g/dl (32.0-36.0); MEAN CELL VOLUME 94.5 fl (80-96); MEAN PLT VOLUME 11.1 fl (7.5-11.1); MONO % 4.1 % (3.8-10.2); NEUT % 88.3 % (42.8-82.8); PLATELET COUNT 207 K/MM3 (134-434); RBC 4.22 M/mm3 (3.60-5.2); WHITE BLOOD COUNT 8.9 K/mm3 (4.0-10.0)
[2020-09-14] MEDS ORDERED: morphine CARPU-JECT 2 MG/1 ML DISP.SYRIN IVPUSH ONE ×2 (18:00→18:11)
[2020-09-14 18:01] LABS: INR 1.05 (0.83-1.09); PROTHROMBIN TIME (PATIENT) 12.9 SEC (9.7-13.0)
[2020-09-14 18:04] LABS: ACTIVATED PTT 25.7 SECONDS (25.2-36.5)
[2020-09-14] MEDS ORDERED: MORPHINE SULFATE 2 MG/ML VIAL ONE ×3 (18:06→23:59)
[2020-09-14] MEDS ORDERED: morphine CARPU-JECT 4 MG/1 ML DISP.SYRIN IVPUSH ONE (18:09)
[2020-09-14 18:13] LABS: CHLORIDE 105 mmol/L (98-107); POTASSIUM 3.6 mmol/L (3.5-5.1); SODIUM 140 mmol/L (136-145)
[2020-09-14 18:15] LABS: CALCIUM 9.2 mg/dL (8.5-10.1)
[2020-09-14 18:16] LABS: ALBUMIN 4.2 g/dl (3.4-5.0); ANION GAP 13 MMOL/L (8-16); BLOOD UREA NITROGEN 25.3 mg/dL (7-18); CO2 23 mmol/L (21-32); GLUCOSE,RANDOM 170 mg/dL (74-106); LIPASE 202 U/L (73-393)
[2020-09-14 18:18] LABS: SGOT/AST 30 U/L (15-37); SGPT/ALT 36 U/L (13-61)
[2020-09-14 18:19] LABS: CREATININE 0.8 mg/dL (0.55-1.3)
[2020-09-14 18:20] LABS: BILIRUBIN,TOTAL 0.6 mg/dL (0.2-1); TOT PROT 7.8 g/dl (6.4-8.2)
[2020-09-14 18:21] LABS: ALK PHOS 58 U/L (45-117)
[2020-09-14 19:31] LABS: EPI CELLS 5 /uL (0-25.1); HYALINE CASTS 0 /uL (0-3.1); PH,URINE 7.5 (5.0-8.0); URINE APPEARANCE CLEAR; URINE BACTERIA 34 /uL (0-1359); URINE BILIRUBIN NEGATIVE (NEGATIVE); URINE COLOR YELLOW; URINE GLUCOSE (UA) TRACE (NEGATIVE); URINE KETONE 3+ (NEGATIVE); URINE LEUK ESTERASE NEGATIVE (NEGATIVE); URINE NITRITE NEGATIVE (NEGATIVE); URINE PROTEIN TRACE (NEGATIVE); URINE RBC 46 /uL (0-23.9); URINE UROBILINOGEN 0.2 mg/dL (0.2-1.0); URINE WBC 9 /uL (0-25.8)
[2020-09-14] MEDS ORDERED: DEXTROSE 5%-0.45% SALINE 1,000 ML IV SCH (22:30)
[2020-09-14] MEDS ORDERED: ONDANSETRON 4 MG/2 ML VIAL IVPUSH PRN (22:31)
[2020-09-14] MEDS ORDERED: LIDOCAINE HCL 2% JELLY 10 ML CARTRIDGE NGT ONE (22:40)
[2020-09-14] MEDS ORDERED: LIDOCAINE HCL 2% JELLY 10 ML CARTRIDGE ONE (22:41)
[2020-09-15] MEDS: MORPHINE SULFATE 2 MG/ML VIAL IVPUSH PRN ×2 (00:12→09:50)
[2020-09-15] MEDS ORDERED: SODIUM PHOSPHATE/NA BIPHOS 133 ML ENEMA PR ONE (09:25)
[2020-09-15 09:27] LABS: BASO % 0.2 % (0-2.0); HEMATOCRIT 37.4 % (32.4-45.2); HEMOGLOBIN 12.6 GM/dL (10.7-15.3); MCH 32.1 pg (25.7-33.7); MCHC 33.7 g/dl (32.0-36.0); MEAN CELL VOLUME 95.1 fl (80-96); MEAN PLT VOLUME 10.6 fl (7.5-11.1); MONO % 7.6 % (3.8-10.2); NEUT % 87.2 % (42.8-82.8); PLATELET COUNT 203 K/MM3 (134-434); RBC 3.93 M/mm3 (3.60-5.2); RDW 13.1 % (11.6-15.6); WHITE BLOOD COUNT 13.9 K/mm3 (4.0-10.0)
[2020-09-15 09:52] LABS: POTASSIUM 4.3 mmol/L (3.5-5.1)
[2020-09-15] MEDS ORDERED: PT OWN MED DRAWER 7, Y5N ONE (09:55)
[2020-09-15 09:59] LABS: ALBUMIN 3.5 g/dl (3.4-5.0); BLOOD UREA NITROGEN 32.3 mg/dL (7-18); CALCIUM 8.2 mg/dL (8.5-10.1)
[2020-09-15] MEDS ORDERED: PANTOPRAZOLE SODIUM 40 MG VIAL IVPUSH SCH (10:00)
[2020-09-15] MEDS ORDERED: ENOXAPARIN NA (PORCINE) 40 MG/0.4 ML DISP.SYRIN SQ SCH (10:00)
[2020-09-15] MEDS ORDERED: ASPIRIN COATED 81 MG TABLET.EC PO SCH (10:00)
[2020-09-15] MEDS ORDERED: amLODIPine BESYLATE 5 MG TABLET (FP) PO SCH ×2 (10:00→18:46)
[2020-09-15 10:01] LABS: CREATININE 1.5 mg/dL (0.55-1.3)
[2020-09-15 10:02] LABS: BILIRUBIN,TOTAL 0.5 mg/dL (0.2-1); TOT PROT 6.9 g/dl (6.4-8.2)
[2020-09-15] MEDS ORDERED: SODIUM CHLORIDE 0.9% 500 ML INFUS.BAG IV ONE (10:11)
[2020-09-15] MEDS ORDERED: MORPHINE SULFATE 2 MG/ML VIAL IVPUSH PRN (10:14)
[2020-09-15] MEDS ORDERED: ACETAMINOPHEN 1000 MG/100 ML VIAL (NON FORMULARY) IVPB PRN (12:43)
[2020-09-15] MEDS ORDERED: SODIUM CHLORIDE 1,000 ML IV SCH ×2 (12:45→17:15)
[2020-09-15] MEDS ORDERED: SODIUM CHLORIDE 1,000 ML IV STA ×2 (20:08→22:21)
[2020-09-15] MEDS ORDERED: fentaNYL CITRATE 250 MCG/5 ML VIAL ONE (22:07)
[2020-09-15] MEDS ORDERED: ROCURONIUM BROMIDE 50 MG/5 ML SYRINGE ONE (22:07)
[2020-09-15] MEDS ORDERED: PROPOFOL 20 ML ONE ×2 (22:07)
[2020-09-15] MEDS ORDERED: SUCCINYLCHOLINE CHLORIDE 200 MG/10 ML SYRINGE ONE (22:10)
[2020-09-16] MEDS ORDERED: NEOSTIGMINE METHYLSULFATE 0.5 MG/1 ML - 10 ML MDV ONE (00:39)
[2020-09-16] MEDS ORDERED: ACETAMINOPHEN 1000 MG/100 ML VIAL (NON FORMULARY) IVPB ONE ×2 (00:50→02:00)
[2020-09-16] MEDS ORDERED: LACTATED RINGERS SOLUTION 1,000 ML IV SCH ×2 (01:30→18:25)
[2020-09-16] MEDS ORDERED: ACETAMINOPHEN INJECTION 100 ML IVPB ONE (01:30)
[2020-09-16 01:34] LABS: BASO % 0.1 % (0-2.0); HEMATOCRIT 26.2 % (32.4-45.2); HEMOGLOBIN 8.8 GM/dL (10.7-15.3); MCH 32.1 pg (25.7-33.7); MCHC 33.5 g/dl (32.0-36.0); MEAN PLT VOLUME 10.5 fl (7.5-11.1); MONO % 5.6 % (3.8-10.2); NEUT % 85.3 % (42.8-82.8); PLATELET COUNT 148 K/MM3 (134-434); RBC 2.73 M/mm3 (3.60-5.2); RDW 13.4 % (11.6-15.6); WHITE BLOOD COUNT 6.7 K/mm3 (4.0-10.0)
[2020-09-16 01:56] LABS: POTASSIUM 4.5 mmol/L (3.5-5.1)
[2020-09-16 01:58] LABS: ALBUMIN 2.1 g/dl (3.4-5.0); MAGNESIUM 1.6 mg/dL (1.8-2.4)
[2020-09-16 02:02] LABS: PHOSPHOROUS 4.7 mg/dL (2.5-4.9)
[2020-09-16 02:03] LABS: BILIRUBIN,TOTAL 0.2 mg/dL (0.2-1)
[2020-09-16] MEDS ORDERED: ACETAMINOPHEN 1000 MG/100 ML VIAL (NON FORMULARY) IVPB PRN ×2 (02:03→18:15)
[2020-09-16] MEDS ORDERED: SODIUM CHLORIDE 1,000 ML IV STA (02:03)
[2020-09-16] MEDS ORDERED: SODIUM CHLORIDE 1,000 ML IV SCH (02:03)
[2020-09-16] MEDS ORDERED: ONDANSETRON 4 MG/2 ML VIAL IVPUSH PRN (02:03)
[2020-09-16] MEDS ORDERED: HYDROmorphone HCl 2 MG/ML VIAL IVPUSH PRN (02:04)
[2020-09-16] MEDS ORDERED: MORPHINE SULFATE 2 MG/ML VIAL IVPUSH PRN (02:05)
[2020-09-16 02:07] LABS: TOT PROT 3.9 g/dl (6.4-8.2)
[2020-09-16 02:19] LABS: CALCIUM 6.4 mg/dL (8.5-10.1)
[2020-09-16] MEDS ORDERED: CALCIUM GLUCONATE 10% - 1,000 MG/10 ML VIAL IVPB ONE (02:32)
[2020-09-16] MEDS: amLODIPine BESYLATE 10 MG TABLET (FP) PO SCH (09:39)
[2020-09-16] MEDS: PANTOPRAZOLE SODIUM 40 MG VIAL IVPUSH SCH ×2 (09:39→21:28)
[2020-09-16] MEDS ORDERED: ENOXAPARIN NA (PORCINE) 40 MG/0.4 ML DISP.SYRIN SQ SCH (10:00)
[2020-09-16] MEDS ORDERED: CIPROFLOXACIN 400 MG/D5W 400 MG/200 ML IVPB IVPB SCH (10:00)
[2020-09-16] MEDS: PHENYLEPHRINE NS PREMIX 50,000 MCG/500 ML BAG CVP SCH (10:28)
[2020-09-16] MEDS: MUPIROCIN 2% TOPICAL OINTMENT FOR DECOLONIZATION NS SCH ×2 (10:29→21:28)
[2020-09-16 10:36] LABS: HEMATOCRIT 27.5 % (32.4-45.2); HEMOGLOBIN 9.3 GM/dL (10.7-15.3); MCHC 33.7 g/dl (32.0-36.0); MEAN CELL VOLUME 94.9 fl (80-96); MEAN PLT VOLUME 10.8 fl (7.5-11.1); PLATELET COUNT 131 K/MM3 (134-434); RDW 13.2 % (11.6-15.6); WHITE BLOOD COUNT 5.9 K/mm3 (4.0-10.0)
[2020-09-16 10:55] LABS: POTASSIUM 4.5 mmol/L (3.5-5.1)
[2020-09-16 10:57] LABS: ALBUMIN 2.3 g/dl (3.4-5.0); BLOOD UREA NITROGEN 45.7 mg/dL (7-18); CALCIUM 7.3 mg/dL (8.5-10.1)
[2020-09-16 10:58] LABS: MAGNESIUM 1.7 mg/dL (1.8-2.4)
[2020-09-16 11:00] LABS: CREATININE 1.4 mg/dL (0.55-1.3)
[2020-09-16 11:01] LABS: PHOSPHOROUS 3.1 mg/dL (2.5-4.9)
[2020-09-16 11:02] LABS: BILIRUBIN,TOTAL 0.3 mg/dL (0.2-1); TOT PROT 4.8 g/dl (6.4-8.2)
[2020-09-16] MEDS: ACETAMINOPHEN 1000 MG/100 ML VIAL (NON FORMULARY) IVPB PRN (18:35)
[2020-09-16] MEDS: CHLORHEXIDINE GLUCONATE 4% CLEANSER FOR DECOLONIZATION TP SCH (21:28)
[2020-09-17] MEDS: ACETAMINOPHEN 1000 MG/100 ML VIAL (NON FORMULARY) IVPB PRN (06:54)
[2020-09-17] MEDS: PHENYLEPHRINE NS PREMIX 50,000 MCG/500 ML BAG CVP SCH (06:55)
[2020-09-17 08:28] LABS: HEMATOCRIT 22.5 % (32.4-45.2); HEMOGLOBIN 7.8 GM/dL (10.7-15.3); LYMPH % 7.3 % (8-40); MCH 32.9 pg (25.7-33.7); MCHC 34.9 g/dl (32.0-36.0); MEAN CELL VOLUME 94.3 fl (80-96); MEAN PLT VOLUME 10.3 fl (7.5-11.1); MONO % 8.2 % (3.8-10.2); NEUT % 84.5 % (42.8-82.8); PLATELET COUNT 118 K/MM3 (134-434); RBC 2.39 M/mm3 (3.60-5.2); WHITE BLOOD COUNT 7.8 K/mm3 (4.0-10.0)
[2020-09-17 08:40] LABS: POTASSIUM 3.5 mmol/L (3.5-5.1)
[2020-09-17 08:42] LABS: CALCIUM 7.5 mg/dL (8.5-10.1)
[2020-09-17 08:43] LABS: BLOOD UREA NITROGEN 32.4 mg/dL (7-18)
[2020-09-17 08:46] LABS: CREATININE 0.8 mg/dL (0.55-1.3)
[2020-09-17] MEDS ORDERED: SODIUM CHLORIDE 0.45%/POT 20 MEQ/1,000 ML INFUS.BAG IV SCH (09:15)
[2020-09-17] MEDS: MUPIROCIN 2% TOPICAL OINTMENT FOR DECOLONIZATION NS SCH ×2 (10:33→21:16)
[2020-09-17] MEDS: amLODIPine BESYLATE 10 MG TABLET (FP) PO SCH ×2 (10:33→10:35)
[2020-09-17] MEDS: PANTOPRAZOLE SODIUM 40 MG VIAL IVPUSH SCH ×2 (10:33→22:05)
[2020-09-17] MEDS ORDERED: CEFAZOLIN 1 GM/D5W 1 GM/50 ML BAG IVPB SCH (11:30)
[2020-09-17] MEDS ORDERED: D5-1/2NS+10 MEQ KCL - 10 MEQ/1,000 ML INFUS.BAG IV SCH (12:00)
[2020-09-17] MEDS: D5-1/2NS+20 MEQ KCL - 20 MEQ/1,000 ML INFUS.BAG IV SCH (12:08)
[2020-09-17] MEDS: MEROPENEM 1 GM in DEXTROSE 5%-WATER 100 ML IVPB SCH ×2 (13:28→22:05)
[2020-09-17] MEDS: CHLORHEXIDINE GLUCONATE 4% CLEANSER FOR DECOLONIZATION TP SCH (21:16)
[2020-09-18] MEDS: ACETAMINOPHEN 1000 MG/100 ML VIAL (NON FORMULARY) IVPB PRN ×2 (01:52→11:29)
[2020-09-18] MEDS: MEROPENEM 1 GM in DEXTROSE 5%-WATER 100 ML IVPB SCH ×2 (09:44→21:29)
[2020-09-18] MEDS: PANTOPRAZOLE SODIUM 40 MG VIAL IVPUSH SCH ×2 (09:44→21:30)
[2020-09-18] MEDS: amLODIPine BESYLATE 10 MG TABLET (FP) PO SCH (09:45)
[2020-09-18] MEDS: MUPIROCIN 2% TOPICAL OINTMENT FOR DECOLONIZATION NS SCH ×2 (09:45→21:29)
[2020-09-18 10:41] LABS: BASO % 0.2 % (0-2.0); EOS % 1.1 % (0-4.5); HEMATOCRIT 20.6 % (32.4-45.2); HEMOGLOBIN 7.1 GM/dL (10.7-15.3); LYMPH % 11.2 % (8-40); MCH 32.3 pg (25.7-33.7); MCHC 34.6 g/dl (32.0-36.0); MEAN CELL VOLUME 93.3 fl (80-96); MEAN PLT VOLUME 10.2 fl (7.5-11.1); MONO % 5.7 % (3.8-10.2); NEUT % 81.8 % (42.8-82.8); PLATELET COUNT 144 K/MM3 (134-434); RBC 2.21 M/mm3 (3.60-5.2); RDW 13.1 % (11.6-15.6); WHITE BLOOD COUNT 9.2 K/mm3 (4.0-10.0)
[2020-09-18 10:56] LABS: POTASSIUM 3.6 mmol/L (3.5-5.1)
[2020-09-18 10:58] LABS: ALBUMIN 2.2 g/dl (3.4-5.0); BLOOD UREA NITROGEN 21.4 mg/dL (7-18); CALCIUM 7.3 mg/dL (8.5-10.1)
[2020-09-18 11:01] LABS: CREATININE 0.6 mg/dL (0.55-1.3)
[2020-09-18 11:03] LABS: BILIRUBIN,TOTAL 0.4 mg/dL (0.2-1); TOT PROT 4.9 g/dl (6.4-8.2)
[2020-09-18] MEDS: D5-1/2NS+20 MEQ KCL - 20 MEQ/1,000 ML INFUS.BAG IV SCH (11:30)
[2020-09-18] MEDS ORDERED: MINERAL OIL ENEMA 133 ML ENEMA RC ONE (12:39)
[2020-09-18] MEDS ORDERED: D5-1/2NS+20 MEQ KCL - 20 MEQ/1,000 ML INFUS.BAG IV SCH ×3 (13:00→15:40)
[2020-09-18] MEDS: CHLORHEXIDINE GLUCONATE 4% CLEANSER FOR DECOLONIZATION TP SCH (21:29)
[2020-09-19 09:24] LABS: BASO % 0.2 % (0-2.0); EOS % 3.5 % (0-4.5); HEMATOCRIT 29.8 % (32.4-45.2); HEMOGLOBIN 10.6 GM/dL (10.7-15.3); LYMPH % 13.4 % (8-40); MCH 32.2 pg (25.7-33.7); MCHC 35.4 g/dl (32.0-36.0); MEAN CELL VOLUME 91.2 fl (80-96); MEAN PLT VOLUME 9.4 fl (7.5-11.1); MONO % 6.9 % (3.8-10.2); PLATELET COUNT 200 K/MM3 (134-434); RBC 3.27 M/mm3 (3.60-5.2); RDW 13.9 % (11.6-15.6); WHITE BLOOD COUNT 9.3 K/mm3 (4.0-10.0)
[2020-09-19 09:41] LABS: POTASSIUM 3.4 mmol/L (3.5-5.1)
[2020-09-19 09:48] LABS: ALBUMIN 2.7 g/dl (3.4-5.0); CALCIUM 7.6 mg/dL (8.5-10.1)
[2020-09-19 09:52] LABS: CREATININE 0.6 mg/dL (0.55-1.3)
[2020-09-19 09:53] LABS: PHOSPHOROUS 1.3 mg/dL (2.5-4.9)
[2020-09-19] MEDS: ACETAMINOPHEN 1000 MG/100 ML VIAL (NON FORMULARY) IVPB PRN (09:59)
[2020-09-19] MEDS: PANTOPRAZOLE SODIUM 40 MG VIAL IVPUSH SCH ×2 (09:59→21:57)
[2020-09-19] MEDS: amLODIPine BESYLATE 10 MG TABLET (FP) PO SCH (10:00)
[2020-09-19] MEDS: MEROPENEM 1 GM in DEXTROSE 5%-WATER 100 ML IVPB SCH ×2 (10:00→22:32)
[2020-09-19] MEDS: MUPIROCIN 2% TOPICAL OINTMENT FOR DECOLONIZATION NS SCH ×2 (10:01→21:46)
[2020-09-19] MEDS ORDERED: POTASSIUM CHLORIDE TABS 20 MEQ TABLET.ER (FP) PO ONE (11:28)
[2020-09-19] MEDS: D5-1/2NS+40 MEQ KCL - 40 MEQ/1,000 ML INFUS.BAG IV SCH (12:32)
[2020-09-19] MEDS: CHLORHEXIDINE GLUCONATE 4% CLEANSER FOR DECOLONIZATION TP SCH (21:46)
[2020-09-20] MEDS: oxyCODONE HCL 5 MG TABLET PO PRN ×2 (04:22→10:43)
[2020-09-20 08:13] LABS: BASO % 0.3 % (0-2.0); EOS % 6.3 % (0-4.5); HEMATOCRIT 24.6 % (32.4-45.2); HEMOGLOBIN 8.7 GM/dL (10.7-15.3); LYMPH % 16.1 % (8-40); MCH 32.3 pg (25.7-33.7); MCHC 35.5 g/dl (32.0-36.0); MEAN CELL VOLUME 91.2 fl (80-96); MONO % 14.8 % (3.8-10.2); NEUT % 62.5 % (42.8-82.8); PLATELET COUNT 180 K/MM3 (134-434); RDW 13.4 % (11.6-15.6); WHITE BLOOD COUNT 6.6 K/mm3 (4.0-10.0)
[2020-09-20 08:27] LABS: POTASSIUM 5.5 mmol/L (3.5-5.1)
[2020-09-20 08:32] LABS: ALBUMIN 2.1 g/dl (3.4-5.0); BLOOD UREA NITROGEN 8.5 mg/dL (7-18); CALCIUM 7.2 mg/dL (8.5-10.1)
[2020-09-20 08:35] LABS: CREATININE 0.5 mg/dL (0.55-1.3)
[2020-09-20 08:37] LABS: BILIRUBIN,TOTAL 0.6 mg/dL (0.2-1); TOT PROT 4.8 g/dl (6.4-8.2)
[2020-09-20] MEDS: MUPIROCIN 2% TOPICAL OINTMENT FOR DECOLONIZATION NS SCH ×2 (10:37→22:29)
[2020-09-20] MEDS: PANTOPRAZOLE SODIUM 40 MG VIAL IVPUSH SCH (10:38)
[2020-09-20] MEDS: amLODIPine BESYLATE 10 MG TABLET (FP) PO SCH (10:38)
[2020-09-20] MEDS: D5-1/2NS+40 MEQ KCL - 40 MEQ/1,000 ML INFUS.BAG IV SCH (11:55)
[2020-09-20] MEDS: MEROPENEM 1 GM in DEXTROSE 5%-WATER 100 ML IVPB SCH ×2 (12:38→22:29)
[2020-09-20 18:26] LABS: CALCIUM 7.9 mg/dL (8.5-10.1)
[2020-09-20 18:27] LABS: BLOOD UREA NITROGEN 11.1 mg/dL (7-18)
[2020-09-20 18:29] LABS: CREATININE 0.5 mg/dL (0.55-1.3); PHOSPHOROUS 2.3 mg/dL (2.5-4.9)
[2020-09-20] MEDS ORDERED: ACETAMINOPHEN 325 MG TABLET (FP) PO PRN (18:41)
[2020-09-20] MEDS ORDERED: MEROPENEM 1 GM VIAL (RESTRICTED TO ID) IVPB ONE (21:47)
[2020-09-20] MEDS ORDERED: DEXTROSE 5%-WATER 100 ML IVPB ONE (21:47)
[2020-09-20] MEDS: CHLORHEXIDINE GLUCONATE 4% CLEANSER FOR DECOLONIZATION TP SCH (22:29)
[2020-09-21] MEDS ORDERED: DEXTROSE 5%-WATER 100 ML IVPB ONE (09:34)
[2020-09-21] MEDS ORDERED: MEROPENEM 1 GM VIAL (RESTRICTED TO ID) IVPB ONE (09:34)
[2020-09-21] MEDS ORDERED: PT OWN MED DRAWER 7, Y5N ONE (09:36)
[2020-09-21] MEDS: MEROPENEM 1 GM in DEXTROSE 5%-WATER 100 ML IVPB SCH (09:57)
[2020-09-21] MEDS: amLODIPine BESYLATE 10 MG TABLET (FP) PO SCH (09:58)
[2020-09-21] MEDS ORDERED: PANTOPRAZOLE 40 MG TABLET PO SCH (10:00)
[2020-09-21 10:08] LABS: BASO % 0.3 % (0-2.0); EOS % 4.4 % (0-4.5); HEMOGLOBIN 9.7 GM/dL (10.7-15.3); LYMPH % 14.3 % (8-40); MCHC 34.8 g/dl (32.0-36.0); MEAN CELL VOLUME 91.9 fl (80-96); MEAN PLT VOLUME 9.4 fl (7.5-11.1); MONO % 16.2 % (3.8-10.2); NEUT % 64.8 % (42.8-82.8); PLATELET COUNT 239 K/MM3 (134-434); RBC 3.05 M/mm3 (3.60-5.2); RDW 13.6 % (11.6-15.6); WHITE BLOOD COUNT 7.5 K/mm3 (4.0-10.0)
[2020-09-21 10:26] LABS: POTASSIUM 4.3 mmol/L (3.5-5.1)
[2020-09-21 10:33] LABS: ALBUMIN 2.6 g/dl (3.4-5.0); BLOOD UREA NITROGEN 10.4 mg/dL (7-18)
[2020-09-21 10:36] LABS: CREATININE 0.5 mg/dL (0.55-1.3)
[2020-09-21 10:38] LABS: BILIRUBIN,TOTAL 0.6 mg/dL (0.2-1)
[2020-09-21 10:43] LABS: PHOSPHOROUS 2.3 mg/dL (2.5-4.9)
[2020-09-21 11:35] LABS: ANISOCYTOSIS 1+; MACROCYTOSIS 0; PLATELET ESTIMATE NORMAL
[2020-09-21 14:30] VITALS: BP 120/65; PULSE 86; TEMP 98.5
[2020-09-21] MEDS ORDERED: NAPH,MB-DB/K PH,MBDB POWDER PACKET PO SCH (14:35)
== END 2020-09-21 18:30 | disposition home or self-care (01) | DRG 330 ==
LOC: JER 15:06 → JERBED 21:53 → J5S 09-15 06:20 → J6WEST-2 09-16 05:53 → J7W 09-20 15:54
PROVIDERS: ADMIT Internal Medicine; ATTEND Internal Medicine
PROC: 0DB80ZZ Excision of Small Intestine, Open Approach (ICD-10-PCS; principal; 2020-09-16)
PROC: 0D1A0ZB Bypass Jejunum to Ileum, Open Approach (ICD-10-PCS; 2020-09-16)
PROC: 30233N1 Transfusion of Nonautologous Red Blood Cells into Peripheral Vein, Percutaneous Approach (ICD-10-PCS; 2020-09-18)
DX: K55.021 Focal (segmental) acute infarction of small intestine (principal); N17.9 Acute kidney failure, unspecified; E87.0 Hyperosmolality and hypernatremia; G45.9 Transient cerebral ischemic attack, unspecified; K56.609 Unspecified intestinal obstruction, unspecified as to partial versus complete obstruction; I95.81 Postprocedural hypotension; I10 Essential (primary) hypertension; E78.5 Hyperlipidemia, unspecified; C50.919 Malignant neoplasm of unspecified site of unspecified female breast; F41.9 Anxiety disorder, unspecified; D64.9 Anemia, unspecified; R00.0 Tachycardia, unspecified
CPT/HCPCS: 36415; 36430; 71045-TC-FY; 74018-TC-FY; 74177-TC; 80048; 80053; 81003; 82272; 82550; 82553; 82962; 83605; 83690; 83735; 84100; 84484; 85025; 85027; 85610; 85730; 86850; 86900; 86901; 86922; 87086; 88307-TC; 93005; 93010; 94760; 97116-GP; 97162-GP; 99285-25; C9803; J0131; J3480; P9058; Q9967; U0003

== ENCOUNTER 2021-01-12 10:52 | Emergency (ER) | payer OTHER ==
[2021-01-12 11:15] VITALS: BMI 24.8
[2021-01-12 13:09] LABS: BASO % 0.9 % (0-2.0); EOS % 1.9 % (0-4.5); HEMATOCRIT 41.2 % (32.4-45.2); HEMOGLOBIN 13.7 GM/dL (10.7-15.3); MCH 31.1 pg (25.7-33.7); MCHC 33.3 g/dl (32.0-36.0); MEAN CELL VOLUME 93.4 fl (80-96); MEAN PLT VOLUME 10.8 fl (7.5-11.1); MONO % 9.6 % (3.8-10.2); NEUT % 68.6 % (42.8-82.8); PLATELET COUNT 173 K/MM3 (134-434); RBC 4.41 M/mm3 (3.60-5.2); WHITE BLOOD COUNT 4.9 K/mm3 (4.0-10.0)
[2021-01-12 13:29] LABS: CALCIUM 9.2 mg/dL (8.5-10.1)
[2021-01-12 13:30] LABS: ALBUMIN 4.4 g/dl (3.4-5.0); BLOOD UREA NITROGEN 15.3 mg/dL (7-18); MAGNESIUM 2.4 mg/dL (1.8-2.4)
[2021-01-12 13:33] LABS: CREATININE 0.7 mg/dL (0.55-1.3); PHOSPHOROUS 3.2 mg/dL (2.5-4.9)
[2021-01-12 13:34] LABS: TOT PROT 8.2 g/dl (6.4-8.2)
[2021-01-12 13:35] LABS: BILIRUBIN,TOTAL 0.4 mg/dL (0.2-1)
[2021-01-12 14:44] VITALS: BP 146/79; PULSE 72; TEMP 98.6
== END 2021-01-12 14:35 | disposition home or self-care (01) ==
LOC: JER 10:52
DX: M79.602 Pain in left arm (principal)
CPT/HCPCS: 36415; 71046-TC-FY; 80053; 83735; 84100; 84484; 85025; 93005; 93010; 99285-25

== ENCOUNTER 2021-03-20 21:28 | Inpatient (IN) | payer MEDICARE, OTHER ==
[2021-03-20] MEDS ORDERED: morphine CARPU-JECT 2 MG/1 ML DISP.SYRIN IVPUSH ONE (22:05)
[2021-03-20] MEDS ORDERED: SODIUM CHLORIDE 1,000 ML IV STA (22:05)
[2021-03-20] MEDS ORDERED: ONDANSETRON 4 MG/2 ML VIAL IVPUSH ONE (22:06)
[2021-03-20] MEDS ORDERED: ONDANSETRON 4 MG/2 ML VIAL ONE (22:12)
[2021-03-20] MEDS ORDERED: MORPHINE SULFATE 2 MG/ML VIAL ONE (22:12)
[2021-03-20 23:16] LABS: BASO % 0.5 % (0-2.0); EOS % 1.1 % (0-4.5); HEMOGLOBIN 12.6 GM/dL (10.7-15.3); LYMPH % 11.7 % (8-40); MCH 32.2 pg (25.7-33.7); MEAN PLT VOLUME 9.7 fl (7.5-11.1); MONO % 8.4 % (3.8-10.2); NEUT % 78.3 % (42.8-82.8); PLATELET COUNT 160 10^3/uL (134-434); RBC 3.92 M/mm3 (3.60-5.2); RDW 13.7 % (11.6-15.6); WHITE BLOOD COUNT 6.9 K/mm3 (4.0-10.0)
[2021-03-20 23:23] LABS: INR 0.93 (0.83-1.09); PROTHROMBIN TIME (PATIENT) 11.5 SEC (9.7-13.0)
[2021-03-20 23:26] LABS: ACTIVATED PTT 28.5 SECONDS (25.2-36.5)
[2021-03-20 23:43] LABS: EPI CELLS 4 /uL (0-25.1); HYALINE CASTS 1 /uL (0-3.1); PH,URINE 7.5 (5.0-8.0); URINE APPEARANCE CLEAR; URINE BACTERIA 42 /uL (0-1359); URINE BILIRUBIN NEGATIVE (NEGATIVE); URINE COLOR YELLOW; URINE GLUCOSE (UA) NEGATIVE (NEGATIVE); URINE KETONE 1+ (NEGATIVE); URINE LEUK ESTERASE 1+ (NEGATIVE); URINE NITRITE NEGATIVE (NEGATIVE); URINE PROTEIN TRACE (NEGATIVE); URINE RBC 66 /uL (0-23.9); URINE UROBILINOGEN 0.2 mg/dL (0.2-1.0); URINE WBC 24 /uL (0-25.8)
[2021-03-21 00:45] LABS: CALCIUM 8.3 mg/dL (8.5-10.1)
[2021-03-21 00:46] LABS: ALBUMIN 3.8 g/dl (3.4-5.0); BLOOD UREA NITROGEN 18.4 mg/dL (7-18)
[2021-03-21 00:48] LABS: CREATININE 0.8 mg/dL (0.55-1.3)
[2021-03-21 00:50] LABS: BILIRUBIN,TOTAL 0.5 mg/dL (0.2-1); TOT PROT 7.5 g/dl (6.4-8.2)
[2021-03-21] MEDS ORDERED: morphine CARPU-JECT 2 MG/1 ML DISP.SYRIN IVPUSH ONE ×2 (01:01→02:45)
[2021-03-21] MEDS ORDERED: ACETAMINOPHEN 1000 MG/100 ML VIAL (NON FORMULARY) IVPB ONE ×2 (01:02→20:00)
[2021-03-21] MEDS ORDERED: ACETAMINOPHEN INJECTION 100 ML IVPB ONE (01:05)
[2021-03-21] MEDS ORDERED: MORPHINE SULFATE 2 MG/ML VIAL ONE ×3 (01:05→07:58)
[2021-03-21] MEDS ORDERED: MAGNESIUM SULF 50% (8.12 MEQ/2 ML-1 GM VIAL) IVPB ONE (02:11)
[2021-03-21] MEDS ORDERED: KCL 10 MEQ IVPB 10 MEQ/100 ML INFUS.BAG IVPB SCH (02:15)
[2021-03-21] MEDS ORDERED: MAGNESIUM SULF 50% (8.12 MEQ/2 ML-1 GM VIAL) ONE (02:46)
[2021-03-21] MEDS ORDERED: KCL 10 MEQ IVPB 10 MEQ/100 ML INFUS.BAG IVPB ONE (02:47)
[2021-03-21] MEDS ORDERED: LACTATED RINGERS SOLUTION 1,000 ML/1,000 ML INFUS.BAG IV SCH (03:30)
[2021-03-21] MEDS ORDERED: MAGNESIUM SULFATE IN WATER 2 GM/50 ML IVPB IVPB ONE (04:58)
[2021-03-21] MEDS ORDERED: ONDANSETRON 4 MG/2 ML VIAL IVPUSH PRN (07:07)
[2021-03-21] MEDS ORDERED: DEXTROSE 5%-0.45% SALINE 1,000 ML IV SCH (07:15)
[2021-03-21] MEDS: MORPHINE SULFATE 2 MG/ML VIAL IVPUSH PRN ×2 (08:00→16:14)
[2021-03-21] MEDS: metoPROLOL SUCCINATE 25 MG TAB.SR.24H (FP) PO SCH (10:00)
[2021-03-21] MEDS: ENOXAPARIN NA (PORCINE) 40 MG/0.4 ML DISP.SYRIN SQ SCH (10:00)
[2021-03-21] MEDS: amLODIPine BESYLATE 5 MG TABLET (FP) PO SCH (10:00)
[2021-03-21] MEDS ORDERED: amLODIPine BESYLATE 5 MG TABLET (FP) ONE (10:04)
[2021-03-21] MEDS ORDERED: ENOXAPARIN NA (PORCINE) 40 MG/0.4 ML DISP.SYRIN SQ ONE (10:05)
[2021-03-21] MEDS ORDERED: metoPROLOL SUCCINATE 25 MG TAB.SR.24H (FP) ONE (10:05)
[2021-03-21] MEDS: ASPIRIN COATED 81 MG TABLET.EC PO SCH (10:56)
[2021-03-21 13:29] VITALS: BMI 25.9
[2021-03-21] MEDS: D5-1/4NS+20 MEQ KCL - 20 MEQ/1,000 ML INFUS.BAG IV SCH (21:17)
[2021-03-21] MEDS: ROSUVASTATIN CA 10 MG TABLET (FP) PO SCH (21:17)
[2021-03-22] MEDS: MORPHINE SULFATE 2 MG/ML VIAL IVPUSH PRN (01:25)
[2021-03-22 08:17] LABS: BASO % 0.4 % (0-2.0); EOS % 1.8 % (0-4.5); HEMOGLOBIN 12.3 GM/dL (10.7-15.3); LYMPH % 19.6 % (8-40); MCH 32.7 pg (25.7-33.7); MCHC 35.1 g/dl (32.0-36.0); MEAN CELL VOLUME 93.3 fl (80-96); MEAN PLT VOLUME 9.9 fl (7.5-11.1); MONO % 13.5 % (3.8-10.2); NEUT % 64.7 % (42.8-82.8); PLATELET COUNT 173 10^3/uL (134-434); RBC 3.75 M/mm3 (3.60-5.2); RDW 13.4 % (11.6-15.6); WHITE BLOOD COUNT 6.6 K/mm3 (4.0-10.0)
[2021-03-22 08:30] LABS: BLOOD UREA NITROGEN 7.2 mg/dL (7-18); CALCIUM 7.7 mg/dL (8.5-10.1)
[2021-03-22 08:34] LABS: BILIRUBIN,TOTAL 0.7 mg/dL (0.2-1); CREATININE 0.7 mg/dL (0.55-1.3)
[2021-03-22 08:35] LABS: TOT PROT 6.1 g/dl (6.4-8.2)
[2021-03-22] MEDS: ASPIRIN COATED 81 MG TABLET.EC PO SCH (11:27)
[2021-03-22] MEDS: amLODIPine BESYLATE 5 MG TABLET (FP) PO SCH (11:27)
[2021-03-22] MEDS: metoPROLOL SUCCINATE 25 MG TAB.SR.24H (FP) PO SCH (11:27)
[2021-03-22] MEDS: ENOXAPARIN NA (PORCINE) 40 MG/0.4 ML DISP.SYRIN SQ SCH (11:28)
[2021-03-22] MEDS ORDERED: PT OWN MED DRAWER 7, Y5N ONE (12:02)
[2021-03-22] MEDS: D5-1/4NS+20 MEQ KCL - 20 MEQ/1,000 ML INFUS.BAG IV SCH ×2 (15:04→21:48)
[2021-03-22] MEDS: ROSUVASTATIN CA 10 MG TABLET (FP) PO SCH (21:48)
[2021-03-23] MEDS: D5-1/4NS+20 MEQ KCL - 20 MEQ/1,000 ML INFUS.BAG IV SCH ×2 (03:35→21:46)
[2021-03-23] MEDS: MORPHINE SULFATE 2 MG/ML VIAL IVPUSH PRN ×2 (04:54→12:27)
[2021-03-23 09:24] LABS: BASO % 0.5 % (0-2.0); EOS % 2.1 % (0-4.5); HEMATOCRIT 36.1 % (32.4-45.2); HEMOGLOBIN 12.5 GM/dL (10.7-15.3); LYMPH % 9.9 % (8-40); MCH 32.1 pg (25.7-33.7); MCHC 34.5 g/dl (32.0-36.0); MEAN CELL VOLUME 92.8 fl (80-96); MEAN PLT VOLUME 9.8 fl (7.5-11.1); MONO % 10.3 % (3.8-10.2); NEUT % 77.2 % (42.8-82.8); PLATELET COUNT 172 10^3/uL (134-434); RBC 3.89 M/mm3 (3.60-5.2); RDW 13.6 % (11.6-15.6); WHITE BLOOD COUNT 8.8 K/mm3 (4.0-10.0)
[2021-03-23 10:04] LABS: ALBUMIN 3.4 g/dl (3.4-5.0); BLOOD UREA NITROGEN 7.8 mg/dL (7-18)
[2021-03-23 10:07] LABS: CALCIUM 7.9 mg/dL (8.5-10.1); CREATININE 0.6 mg/dL (0.55-1.3)
[2021-03-23 10:09] LABS: TOT PROT 6.7 g/dl (6.4-8.2)
[2021-03-23 10:11] LABS: BILIRUBIN,TOTAL 0.5 mg/dL (0.2-1)
[2021-03-23] MEDS: metoPROLOL SUCCINATE 25 MG TAB.SR.24H (FP) PO SCH (10:28)
[2021-03-23] MEDS: amLODIPine BESYLATE 5 MG TABLET (FP) PO SCH (10:29)
[2021-03-23] MEDS: ASPIRIN COATED 81 MG TABLET.EC PO SCH (10:29)
[2021-03-23] MEDS: ENOXAPARIN NA (PORCINE) 40 MG/0.4 ML DISP.SYRIN SQ SCH (10:29)
[2021-03-23] MEDS ORDERED: ACETAMINOPHEN 325 MG TABLET (FP) PO ONE (13:15)
[2021-03-23] MEDS: ROSUVASTATIN CA 10 MG TABLET (FP) PO SCH (21:41)
[2021-03-23] MEDS: ACETAMINOPHEN 325 MG TABLET (FP) PO PRN (21:41)
[2021-03-24] MEDS ORDERED: PT OWN MED DRAWER 7, Y5N ONE (09:26)
[2021-03-24] MEDS: metoPROLOL SUCCINATE 25 MG TAB.SR.24H (FP) PO SCH (09:31)
[2021-03-24] MEDS: ENOXAPARIN NA (PORCINE) 40 MG/0.4 ML DISP.SYRIN SQ SCH (09:32)
[2021-03-24] MEDS: amLODIPine BESYLATE 5 MG TABLET (FP) PO SCH (09:32)
[2021-03-24] MEDS: ASPIRIN COATED 81 MG TABLET.EC PO SCH (09:32)
[2021-03-24] MEDS: D5-1/4NS+20 MEQ KCL - 20 MEQ/1,000 ML INFUS.BAG IV SCH (10:57)
[2021-03-24] MEDS: ACETAMINOPHEN 325 MG TABLET (FP) PO PRN (21:29)
[2021-03-24] MEDS: ROSUVASTATIN CA 10 MG TABLET (FP) PO SCH (22:35)
[2021-03-25] MEDS: D5-1/4NS+20 MEQ KCL - 20 MEQ/1,000 ML INFUS.BAG IV SCH ×2 (00:52→21:20)
[2021-03-25] MEDS: ENOXAPARIN NA (PORCINE) 40 MG/0.4 ML DISP.SYRIN SQ SCH (09:25)
[2021-03-25] MEDS: amLODIPine BESYLATE 5 MG TABLET (FP) PO SCH (09:25)
[2021-03-25] MEDS: ASPIRIN COATED 81 MG TABLET.EC PO SCH (09:25)
[2021-03-25] MEDS: metoPROLOL SUCCINATE 25 MG TAB.SR.24H (FP) PO SCH (09:25)
[2021-03-25 12:57] LABS: EOS % 5.9 % (0-4.5); HEMATOCRIT 37.2 % (32.4-45.2); HEMOGLOBIN 12.7 GM/dL (10.7-15.3); LYMPH % 32.8 % (8-40); MCH 31.8 pg (25.7-33.7); MCHC 34.1 g/dl (32.0-36.0); MEAN CELL VOLUME 93.5 fl (80-96); MEAN PLT VOLUME 9.2 fl (7.5-11.1); MONO % 12.8 % (3.8-10.2); NEUT % 47.5 % (42.8-82.8); PLATELET COUNT 231 10^3/uL (134-434); RBC 3.98 M/mm3 (3.60-5.2); RDW 13.5 % (11.6-15.6)
[2021-03-25 13:21] LABS: ALBUMIN 3.4 g/dl (3.4-5.0); BLOOD UREA NITROGEN 9.3 mg/dL (7-18); CALCIUM 8.3 mg/dL (8.5-10.1)
[2021-03-25 13:24] LABS: CREATININE 0.6 mg/dL (0.55-1.3)
[2021-03-25 13:26] LABS: BILIRUBIN,TOTAL 0.4 mg/dL (0.2-1); TOT PROT 7.1 g/dl (6.4-8.2)
[2021-03-25] MEDS: POLYETHYLENE GLYCOL (HEALTHYLAX) 3350 17 GM PACKET PO SCH (15:21)
[2021-03-25] MEDS: ROSUVASTATIN CA 10 MG TABLET (FP) PO SCH (21:21)
[2021-03-26] MEDS: amLODIPine BESYLATE 5 MG TABLET (FP) PO SCH (09:43)
[2021-03-26] MEDS: metoPROLOL SUCCINATE 25 MG TAB.SR.24H (FP) PO SCH (09:43)
[2021-03-26] MEDS: ASPIRIN COATED 81 MG TABLET.EC PO SCH (09:43)
[2021-03-26] MEDS: ENOXAPARIN NA (PORCINE) 40 MG/0.4 ML DISP.SYRIN SQ SCH (09:43)
[2021-03-26] MEDS: POLYETHYLENE GLYCOL (HEALTHYLAX) 3350 17 GM PACKET PO SCH (09:44)
[2021-03-26] MEDS: ACETAMINOPHEN 325 MG TABLET (FP) PO PRN (21:28)
[2021-03-26] MEDS: ROSUVASTATIN CA 10 MG TABLET (FP) PO SCH (21:28)
[2021-03-27] MEDS: POLYETHYLENE GLYCOL (HEALTHYLAX) 3350 17 GM PACKET PO SCH (10:06)
[2021-03-27] MEDS: ENOXAPARIN NA (PORCINE) 40 MG/0.4 ML DISP.SYRIN SQ SCH (10:06)
[2021-03-27] MEDS: ASPIRIN COATED 81 MG TABLET.EC PO SCH (10:06)
[2021-03-27] MEDS: metoPROLOL SUCCINATE 25 MG TAB.SR.24H (FP) PO SCH (10:07)
[2021-03-27] MEDS: amLODIPine BESYLATE 5 MG TABLET (FP) PO SCH (10:07)
[2021-03-27 14:56] VITALS: BP 121/67; PULSE 88; TEMP 97.8
== END 2021-03-27 15:27 | disposition home or self-care (01) | DRG 389 ==
LOC: JER 21:28 → JERBED 03-21 06:32 → J8W 03-21 11:23
PROVIDERS: ADMIT Internal Medicine; ATTEND Internal Medicine
PROC: 0D9670Z Drainage of Stomach with Drainage Device, Via Natural or Artificial Opening (ICD-10-PCS; principal; 2021-03-20)
DX: K56.51 Intestinal adhesions [bands], with partial obstruction (principal); R18.8 Other ascites; I10 Essential (primary) hypertension; E78.5 Hyperlipidemia, unspecified
CPT/HCPCS: 36415; 71045-TC-FY; 74019-TC-FY; 74177-TC; 80053; 81003; 82550; 83605; 83690; 84484; 85025; 85610; 85730; 86850; 86900; 86901; 87077; 87086; 93005; 93010; 99285-25; C9803; J0131; U0003; U0005

== ENCOUNTER 2022-09-27 18:15 | Observation (INO) | payer MEDICARE, OTHER ==
[2022-09-27] MEDS ORDERED: PANTOPRAZOLE SODIUM 40 MG VIAL IVPUSH ONE (18:34)
[2022-09-27] MEDS ORDERED: LACTATED RINGERS SOLUTION 1000 ML INFUS.BAG IV ONE ×2 (18:34→20:22)
[2022-09-27] MEDS ORDERED: ONDANSETRON 4 MG/2 ML VIAL IVPUSH ONE (18:34)
[2022-09-27] MEDS ORDERED: PANTOPRAZOLE SODIUM 40 MG/100 ML BAG IVPB ONE (19:40)
[2022-09-27] MEDS ORDERED: ONDANSETRON 4 MG/2 ML VIAL ONE (19:40)
[2022-09-27 19:45] LABS: BASO % 0.2 % (0-2.0); EOS % 0.9 % (0-4.5); HEMATOCRIT 38.2 % (32.4-45.2); HEMOGLOBIN 12.9 GM/dL (10.7-15.3); LYMPH % 1.4 % (8-40); MCH 31.6 pg (25.7-33.7); MCHC 33.6 g/dl (32.0-36.0); MEAN CELL VOLUME 93.8 fl (80-96); MEAN PLT VOLUME 10.1 fl (7.5-11.1); MONO % 7.7 % (3.8-10.2); NEUT % 89.8 % (42.8-82.8); PLATELET COUNT 195 10^3/uL (134-434); RBC 4.08 M/mm3 (3.60-5.2); RDW 13.7 % (11.6-15.6); WHITE BLOOD COUNT 11.3 K/mm3 (4.0-10.0)
[2022-09-27 19:57] LABS: INR 1.04 (0.83-1.09); PROTHROMBIN TIME (PATIENT) 12.1 SEC (9.7-13.0)
[2022-09-27 20:00] LABS: ACTIVATED PTT 22.5 SECONDS (25.2-36.5)
[2022-09-27 20:05] LABS: CHLORIDE 105 mmol/L (98-107); SODIUM 142 mmol/L (136-145)
[2022-09-27 20:06] LABS: LACTIC ACID 2.4 mmol/L (0.4-2.0)
[2022-09-27 20:07] LABS: ANION GAP 12 MMOL/L (8-16); BLOOD UREA NITROGEN 18.2 mg/dL (7-18); CO2 25 mmol/L (21-32); GLUCOSE,RANDOM 158 mg/dL (74-106)
[2022-09-27 20:08] LABS: LIPASE 191 U/L (73-393); MAGNESIUM 1.6 mg/dL (1.8-2.4)
[2022-09-27 20:10] LABS: SGOT/AST 38 U/L (15-37); SGPT/ALT 28 U/L (13-61)
[2022-09-27 20:12] LABS: BILIRUBIN,TOTAL 0.8 mg/dL (0.2-1); TOT PROT 7.5 g/dl (6.4-8.2)
[2022-09-27 20:13] LABS: ALK PHOS 40 U/L (45-117)
[2022-09-27] MEDS ORDERED: MAGNESIUM SULF 50% (8.12 MEQ/2 ML-1 GM VIAL) IVPB ONE (20:21)
[2022-09-27] MEDS ORDERED: MAGNESIUM SULFATE IN WATER 2 GM/50 ML IVPB IVPB ONE (21:10)
[2022-09-28] MEDS ORDERED: ONDANSETRON 4 MG/2 ML VIAL IVPUSH PRN (00:03)
[2022-09-28 05:49] VITALS: BMI 23.1
[2022-09-28] MEDS: DEXTROSE 5%-0.45% SALINE 1,000 ML IV SCH (07:00)
[2022-09-28] MEDS ORDERED: HEPARIN NA (PORCINE) 5,000 UNITS/ML 1ML VIAL SQ SCH (10:00)
[2022-09-28] MEDS: amLODIPine BESYLATE 10 MG TABLET (FP) PO SCH (10:24)
[2022-09-28] MEDS: PANTOPRAZOLE 40 MG TABLET PO SCH (10:24)
[2022-09-28] MEDS: metoPROLOL SUCCINATE 25 MG TAB.SR.24H (FP) PO SCH (10:25)
[2022-09-28 13:18] LABS: BLOOD UREA NITROGEN 20.9 mg/dL (7-18)
[2022-09-28 13:24] LABS: BILIRUBIN,TOTAL 0.6 mg/dL (0.2-1)
[2022-09-28 13:40] LABS: ALBUMIN 3.1 g/dl (3.4-5.0)
[2022-09-28] MEDS: ONDANSETRON 4 MG/2 ML VIAL IVPUSH SCH ×3 (13:50→21:36)
[2022-09-28] MEDS: SUCRALFATE 1 GM/10 ML UNIT DOSE CUPS PO SCH ×3 (14:52→21:37)
[2022-09-28] MEDS ORDERED: POTASSIUM CHLORIDE ORAL LIQUID 20 MEQ/15 ML PO ONE (17:16)
[2022-09-28] MEDS: ACETAMINOPHEN 325 MG TABLET (FP) PO PRN (18:46)
[2022-09-28 19:53] LABS: EPI CELLS 1 /uL (0-25.1); HYALINE CASTS 0 /uL (0-3.1); PH,URINE 5.5 (5.0-8.0); URINE APPEARANCE CLEAR; URINE BACTERIA 0 /uL (0-1359); URINE BILIRUBIN NEGATIVE (NEGATIVE); URINE COLOR YELLOW; URINE GLUCOSE (UA) NEGATIVE (NEGATIVE); URINE KETONE NEGATIVE (NEGATIVE); URINE LEUK ESTERASE TRACE (NEGATIVE); URINE NITRITE NEGATIVE (NEGATIVE); URINE PROTEIN NEGATIVE (NEGATIVE); URINE RBC 6 /uL (0-23.9); URINE UROBILINOGEN 0.2 mg/dL (0.2-1.0); URINE WBC 14 /uL (0-25.8)
[2022-09-28] MEDS: ROSUVASTATIN CA 10 MG TABLET PO SCH (21:36)
[2022-09-29] MEDS: ONDANSETRON 4 MG/2 ML VIAL IVPUSH SCH ×3 (00:45→09:41)
[2022-09-29] MEDS: DEXTROSE 5%-0.45% SALINE 1,000 ML IV SCH (05:56)
[2022-09-29 07:52] LABS: BASO % 0.5 % (0-2.0); HEMATOCRIT 30.4 % (32.4-45.2); HEMOGLOBIN 10.1 GM/dL (10.7-15.3); LYMPH % 22.3 % (8-40); MCH 31.4 pg (25.7-33.7); MCHC 33.4 g/dl (32.0-36.0); MEAN CELL VOLUME 94.1 fl (80-96); MEAN PLT VOLUME 10.5 fl (7.5-11.1); MONO % 12.1 % (3.8-10.2); NEUT % 61.1 % (42.8-82.8); PLATELET COUNT 164 10^3/uL (134-434); RBC 3.23 M/mm3 (3.60-5.2); RDW 13.7 % (11.6-15.6); WHITE BLOOD COUNT 5.7 K/mm3 (4.0-10.0)
[2022-09-29 08:17] LABS: CALCIUM 7.9 mg/dL (8.5-10.1)
[2022-09-29 08:18] LABS: ALBUMIN 2.8 g/dl (3.4-5.0); BLOOD UREA NITROGEN 16.8 mg/dL (7-18)
[2022-09-29 08:21] LABS: CREATININE 0.9 mg/dL (0.55-1.3)
[2022-09-29 08:23] LABS: BILIRUBIN,TOTAL 0.2 mg/dL (0.2-1); TOT PROT 5.5 g/dl (6.4-8.2)
[2022-09-29] MEDS: amLODIPine BESYLATE 10 MG TABLET (FP) PO SCH (09:41)
[2022-09-29] MEDS: metoPROLOL SUCCINATE 25 MG TAB.SR.24H (FP) PO SCH (09:41)
[2022-09-29] MEDS: PANTOPRAZOLE 40 MG TABLET PO SCH (09:41)
[2022-09-29] MEDS: SUCRALFATE 1 GM/10 ML UNIT DOSE CUPS PO SCH ×3 (09:42→17:01)
[2022-09-29] MEDS ORDERED: ONDANSETRON 4 MG/2 ML VIAL IVPUSH PRN (10:49)
[2022-09-29] MEDS: D5-1/2NS+10 MEQ KCL - 10 MEQ/1,000 ML INFUS.BAG IV SCH (13:22)
[2022-09-29] MEDS: CLOPIDOGREL BISULFATE 75 MG TABLET (FP) PO SCH (17:01)
[2022-09-29] MEDS: ASPIRIN COATED 81 MG TABLET.EC PO SCH (17:01)
[2022-09-29] MEDS: ROSUVASTATIN CA 10 MG TABLET PO SCH (23:08)
[2022-09-29] MEDS: ACETAMINOPHEN 325 MG TABLET (FP) PO PRN (23:10)
[2022-09-30] MEDS: SUCRALFATE 1 GM/10 ML UNIT DOSE CUPS PO SCH ×4 (00:11→18:35)
[2022-09-30] MEDS: CLOPIDOGREL BISULFATE 75 MG TABLET (FP) PO SCH (09:09)
[2022-09-30] MEDS: ASPIRIN COATED 81 MG TABLET.EC PO SCH (09:09)
[2022-09-30] MEDS: amLODIPine BESYLATE 10 MG TABLET (FP) PO SCH (09:09)
[2022-09-30] MEDS: PANTOPRAZOLE 40 MG TABLET PO SCH (09:09)
[2022-09-30] MEDS: metoPROLOL SUCCINATE 25 MG TAB.SR.24H (FP) PO SCH (09:09)
[2022-09-30] MEDS: D5-1/2NS+10 MEQ KCL - 10 MEQ/1,000 ML INFUS.BAG IV SCH (13:49)
[2022-09-30] MEDS: LISINOPRIL 5 MG TABLET PO SCH (15:46)
[2022-09-30 17:31] LABS: BASO % 0.6 % (0-2.0); EOS % 3.5 % (0-4.5); HEMATOCRIT 31.1 % (32.4-45.2); HEMOGLOBIN 10.7 GM/dL (10.7-15.3); LYMPH % 24.9 % (8-40); MCH 32.3 pg (25.7-33.7); MCHC 34.4 g/dl (32.0-36.0); MEAN CELL VOLUME 93.9 fl (80-96); MEAN PLT VOLUME 9.7 fl (7.5-11.1); MONO % 11.8 % (3.8-10.2); NEUT % 59.2 % (42.8-82.8); PLATELET COUNT 164 10^3/uL (134-434); RBC 3.31 M/mm3 (3.60-5.2); RDW 13.9 % (11.6-15.6); WHITE BLOOD COUNT 5.1 K/mm3 (4.0-10.0)
[2022-09-30 18:58] LABS: CALCIUM 8.4 mg/dL (8.5-10.1)
[2022-09-30 18:59] LABS: ALBUMIN 3.1 g/dl (3.4-5.0)
[2022-09-30 19:03] LABS: CREATININE 0.7 mg/dL (0.55-1.3)
[2022-09-30 19:04] LABS: BILIRUBIN,TOTAL 0.4 mg/dL (0.2-1)
[2022-09-30 19:05] LABS: TOT PROT 6.1 g/dl (6.4-8.2)
[2022-09-30] MEDS: ROSUVASTATIN CA 10 MG TABLET PO SCH (21:00)
[2022-10-01] MEDS: SUCRALFATE 1 GM/10 ML UNIT DOSE CUPS PO SCH ×5 (07:47→22:23)
[2022-10-01] MEDS: LISINOPRIL 5 MG TABLET PO SCH (10:00)
[2022-10-01] MEDS: CLOPIDOGREL BISULFATE 75 MG TABLET (FP) PO SCH (10:00)
[2022-10-01] MEDS: metoPROLOL SUCCINATE 25 MG TAB.SR.24H (FP) PO SCH (10:00)
[2022-10-01] MEDS: PANTOPRAZOLE 40 MG TABLET PO SCH (10:00)
[2022-10-01] MEDS: amLODIPine BESYLATE 10 MG TABLET (FP) PO SCH (10:00)
[2022-10-01] MEDS: ASPIRIN COATED 81 MG TABLET.EC PO SCH (10:01)
[2022-10-01] MEDS: D5-1/2NS+10 MEQ KCL - 10 MEQ/1,000 ML INFUS.BAG IV SCH ×2 (11:52→13:00)
[2022-10-01] MEDS: ROSUVASTATIN CA 10 MG TABLET PO SCH (22:23)
[2022-10-02] MEDS: LISINOPRIL 5 MG TABLET PO SCH (14:55)
[2022-10-02] MEDS: PANTOPRAZOLE 40 MG TABLET PO SCH (14:55)
[2022-10-02] MEDS: metoPROLOL SUCCINATE 25 MG TAB.SR.24H (FP) PO SCH (14:55)
[2022-10-02] MEDS: amLODIPine BESYLATE 10 MG TABLET (FP) PO SCH (14:56)
[2022-10-02] MEDS: CLOPIDOGREL BISULFATE 75 MG TABLET (FP) PO SCH (14:56)
[2022-10-02] MEDS: ASPIRIN COATED 81 MG TABLET.EC PO SCH (14:57)
[2022-10-02] MEDS: SUCRALFATE 1 GM/10 ML UNIT DOSE CUPS PO SCH ×4 (14:58→21:11)
[2022-10-02] MEDS: D5-1/2NS+10 MEQ KCL - 10 MEQ/1,000 ML INFUS.BAG IV SCH (15:01)
[2022-10-02] MEDS: ROSUVASTATIN CA 10 MG TABLET PO SCH (21:11)
[2022-10-02] MEDS: POLYETHYLENE GLYCOL (HEALTHYLAX) 3350 17 GM PACKET PO SCH (21:11)
[2022-10-03] MEDS: LISINOPRIL 5 MG TABLET PO SCH (09:40)
[2022-10-03] MEDS: PANTOPRAZOLE 40 MG TABLET PO SCH (09:40)
[2022-10-03] MEDS: amLODIPine BESYLATE 10 MG TABLET (FP) PO SCH (09:40)
[2022-10-03] MEDS: CLOPIDOGREL BISULFATE 75 MG TABLET (FP) PO SCH (09:40)
[2022-10-03] MEDS: SUCRALFATE 1 GM/10 ML UNIT DOSE CUPS PO SCH ×2 (09:40→13:29)
[2022-10-03] MEDS: metoPROLOL SUCCINATE 25 MG TAB.SR.24H (FP) PO SCH (09:40)
[2022-10-03] MEDS: POLYETHYLENE GLYCOL (HEALTHYLAX) 3350 17 GM PACKET PO SCH (09:41)
[2022-10-03] MEDS: ASPIRIN COATED 81 MG TABLET.EC PO SCH (09:41)
[2022-10-03 14:02] VITALS: BP 113/68; PULSE 80; RESP 20; TEMP 98.3
== END 2022-10-03 15:03 | disposition home or self-care (01) ==
LOC: JER 18:15 → JERBED 21:28 → UNDOADMOB 21:28 → INTOOBSV 09-28 → OBSVTOIN 09-28 → JERBED 09-28 01:08 → J4W 09-28 01:08 → JERBED 09-28 11:14
PROVIDERS: ADMIT Internal Medicine; ATTEND Internal Medicine
PROC: 3E033GC Introduction of Other Therapeutic Substance into Peripheral Vein, Percutaneous Approach (ICD-10-PCS; principal; 2022-09-28)
PROC: 3E0337Z Introduction of Electrolytic and Water Balance Substance into Peripheral Vein, Percutaneous Approach (ICD-10-PCS; 2022-09-28)
DX: E87.6 Hypokalemia (principal); I11.9 Hypertensive heart disease without heart failure; R11.2 Nausea with vomiting, unspecified; R19.7 Diarrhea, unspecified; E78.5 Hyperlipidemia, unspecified; I25.10 Atherosclerotic heart disease of native coronary artery without angina pectoris; Z95.5 Presence of coronary angioplasty implant and graft; R42 Dizziness and giddiness; R77.8 Other specified abnormalities of plasma proteins; Z88.0 Allergy status to penicillin
CPT/HCPCS: 0241U-QW; 36415; 70450-TC; 71045-TC-FY; 72125-TC; 74019-TC-FY; 78452-TC; 80053; 80061; 81003; 82272; 82962; 83036; 83605; 83690; 83735; 84443; 84484; 85025; 85610; 85730; 86850; 86900; 86901; 93005; 93010; 93017; 93306-TC; 93880-TC; 96365; 96367; 96375; 99285-25; A9502; G0378

== ENCOUNTER 2024-10-12 19:57 | Observation (INO) | payer MEDICARE, OTHER ==
[2024-10-12 22:39] LABS: HEMATOCRIT 41.3 % (32.4-45.2); HEMOGLOBIN 13.9 GM/dL (10.7-15.3); MCH 30.9 pg (25.7-33.7); MCHC 33.5 g/dl (32.0-36.0); MEAN CELL VOLUME 92.3 fl (80-96); MEAN PLT VOLUME 10.5 fl (7.5-11.1); PLATELET COUNT 150 10^3/uL (134-434); RBC 4.48 M/mm3 (3.60-5.2)
[2024-10-12] MEDS ORDERED: ACETAMINOPHEN INJECTION 100 ML ONE (22:45)
[2024-10-12] MEDS ORDERED: ONDANSETRON 4 MG/2 ML VIAL ONE (22:45)
[2024-10-12] MEDS ORDERED: TRIMETHOBENZAMIDE HCL 200MG/2ML INJ IM ONE (22:46)
[2024-10-12 22:50] LABS: EPI CELLS 7 /uL (0-25.1); HYALINE CASTS 1 /uL (0-3.1); URINE APPEARANCE CLEAR; URINE BACTERIA 60 /uL (0-1359); URINE BILIRUBIN NEGATIVE (NEGATIVE); URINE COLOR YELLOW; URINE GLUCOSE (UA) NEGATIVE (NEGATIVE); URINE KETONE TRACE (NEGATIVE); URINE LEUK ESTERASE 2+ (NEGATIVE); URINE NITRITE NEGATIVE (NEGATIVE); URINE PROTEIN NEGATIVE (NEGATIVE); URINE RBC 21 /uL (0-23.9); URINE UROBILINOGEN 0.2 mg/dL (0.2-1.0); URINE WBC 84 /uL (0-25.8)
[2024-10-12 22:53] LABS: INR 0.98 (0.83-1.09); PROTHROMBIN TIME (PATIENT) 10.7 SEC (9.7-13.0)
[2024-10-12 22:56] LABS: ACTIVATED PTT 31.3 SECONDS (25.2-36.5)
[2024-10-12 23:00] LABS: CALCIUM 9.7 mg/dL (8.5-10.1)
[2024-10-12 23:01] LABS: ALBUMIN 4.6 g/dl (3.4-5.0); BLOOD UREA NITROGEN 18.1 mg/dL (7-18)
[2024-10-12 23:05] LABS: BILIRUBIN,TOTAL 0.7 mg/dL (0.2-1); TOT PROT 8.9 g/dl (6.4-8.2)
[2024-10-12] MEDS: TRIMETHOBENZAMIDE HCL 200MG/2ML INJ IM PRN (23:22)
[2024-10-12] MEDS: ONDANSETRON 4 MG/2 ML VIAL IVPUSH ONE (23:39)
[2024-10-13] MEDS: ACETAMINOPHEN 1000 MG/100 ML BAG IVPB ONE (00:21)
[2024-10-13 00:55] LABS: BLOOD UREA NITROGEN 16.9 mg/dL (7-18); CALCIUM 9.1 mg/dL (8.5-10.1)
[2024-10-13 00:59] LABS: CREATININE 0.8 mg/dL (0.55-1.3)
[2024-10-13] MEDS ORDERED: KCL 10 MEQ IVPB 10 MEQ/100 ML INFUS.BAG IVPB ONE (02:18)
[2024-10-13] MEDS: KCL 10 MEQ IVPB 10 MEQ/100 ML INFUS.BAG IVPB SCH ×2 (02:28→05:19)
[2024-10-13 07:05] LABS: HEMATOCRIT 34.3 % (32.4-45.2); HEMOGLOBIN 11.8 GM/dL (10.7-15.3); MCH 31.7 pg (25.7-33.7); MCHC 34.3 g/dl (32.0-36.0); MEAN CELL VOLUME 92.3 fl (80-96); PLATELET COUNT 206 10^3/uL (134-434); RBC 3.71 M/mm3 (3.60-5.2); RDW 13.6 % (11.6-15.6); WHITE BLOOD COUNT 8.3 K/mm3 (4.0-10.0)
[2024-10-13 07:12] LABS: POTASSIUM 3.3 mmol/L (3.5-5.1)
[2024-10-13 07:16] LABS: CALCIUM 8.9 mg/dL (8.5-10.1)
[2024-10-13 07:17] LABS: BLOOD UREA NITROGEN 15.7 mg/dL (7-18); MAGNESIUM 1.7 mg/dL (1.8-2.4)
[2024-10-13 07:19] LABS: CREATININE 0.8 mg/dL (0.55-1.3)
[2024-10-13 07:22] LABS: PHOSPHOROUS 3.8 mg/dL (2.5-4.9)
[2024-10-13] MEDS ORDERED: LOSARTAN POTASSIUM 25 MG TABLET PO SCH (10:00)
[2024-10-13] MEDS: amLODIPine BESYLATE 10 MG TABLET (FP) PO SCH (10:08)
[2024-10-13] MEDS: PANTOPRAZOLE 40 MG TABLET PO SCH (10:08)
[2024-10-13] MEDS: HYDROCHLOROTHIAZIDE 25 MG TABLET (FP) PO SCH (10:08)
[2024-10-13] MEDS: metoPROLOL SUCCINATE 25 MG TAB.SR.24H (FP) PO SCH (10:08)
[2024-10-13] MEDS: CLOPIDOGREL BISULFATE 75 MG TABLET (FP) PO SCH (10:08)
[2024-10-13] MEDS: ROSUVASTATIN CA 20 MG TABLET PO SCH (22:03)
[2024-10-14 07:26] LABS: POTASSIUM 3.3 mmol/L (3.5-5.1)
[2024-10-14 07:28] LABS: CALCIUM 9.2 mg/dL (8.5-10.1)
[2024-10-14 07:29] LABS: BLOOD UREA NITROGEN 15.2 mg/dL (7-18)
[2024-10-14 07:32] LABS: CREATININE 0.8 mg/dL (0.55-1.3)
[2024-10-14 07:34] LABS: BILIRUBIN,TOTAL 0.7 mg/dL (0.2-1); EOS % 3.4 % (0-4.5); HEMATOCRIT 36.9 % (32.4-45.2); HEMOGLOBIN 12.4 GM/dL (10.7-15.3); LYMPH % 28.5 % (8-40); MCH 30.9 pg (25.7-33.7); MCHC 33.5 g/dl (32.0-36.0); MEAN CELL VOLUME 92.4 fl (80-96); MEAN PLT VOLUME 9.9 fl (7.5-11.1); MONO % 9.8 % (3.8-10.2); NEUT % 57.3 % (42.8-82.8); PLATELET COUNT 221 10^3/uL (134-434); RBC 3.99 M/mm3 (3.60-5.2); RDW 13.5 % (11.6-15.6); WHITE BLOOD COUNT 5.4 K/mm3 (4.0-10.0)
[2024-10-14 07:36] LABS: ALBUMIN 3.6 g/dl (3.4-5.0)
[2024-10-14] MEDS: POTASSIUM CHLORIDE TABS 10 MEQ TABLET.ER (FP) PO SCH (16:24)
[2024-10-14] MEDS: ALPRAZolam 0.25 MG TABLET PO PRN (17:16)
[2024-10-14 18:11] LABS: MAGNESIUM 1.7 mg/dL (1.8-2.4)
[2024-10-14 18:20] LABS: N-TERMINAL BNP 859.4 pg/ml (5-450)
[2024-10-14] MEDS: MAGNESIUM 2GM/50ML STERILE WATER IVPB IVPB ONE (21:28)
[2024-10-16 08:01] LABS: BASO % 0.3 % (0-2.0); EOS % 2.6 % (0-4.5); HEMATOCRIT 36.3 % (32.4-45.2); HEMOGLOBIN 12.4 GM/dL (10.7-15.3); LYMPH % 9.9 % (8-40); MCH 31.3 pg (25.7-33.7); MCHC 34.1 g/dl (32.0-36.0); MEAN CELL VOLUME 91.5 fl (80-96); NEUT % 77.2 % (42.8-82.8); PLATELET COUNT 179 10^3/uL (134-434); RBC 3.97 M/mm3 (3.60-5.2); RDW 13.3 % (11.6-15.6); WHITE BLOOD COUNT 6.3 K/mm3 (4.0-10.0)
[2024-10-16 08:08] LABS: CHLORIDE 101 mmol/L (98-107); POTASSIUM 2.5 mmol/L (3.5-5.1); SODIUM 138 mmol/L (136-145)
[2024-10-16 08:10] LABS: CALCIUM 8.1 mg/dL (8.5-10.1)
[2024-10-16 08:11] LABS: ALBUMIN 3.4 g/dl (3.4-5.0); ANION GAP 9 mmol/L (4-13); BLOOD UREA NITROGEN 21.9 mg/dL (7-18); CO2 28 mmol/L (21-32); GLUCOSE,RANDOM 105 mg/dL (74-106)
[2024-10-16 08:14] LABS: CREATININE 0.8 mg/dL (0.55-1.3); SGOT/AST 41 U/L (15-37); SGPT/ALT 28 U/L (13-61)
[2024-10-16 08:16] LABS: TOT PROT 6.5 g/dl (6.4-8.2)
[2024-10-16 08:17] LABS: ALK PHOS 56 U/L (45-117)
[2024-10-16 08:19] LABS: BILIRUBIN,TOTAL 0.6 mg/dL (0.2-1)
[2024-10-16] MEDS ORDERED: POTASSIUM CHLORIDE ORAL LIQUID 20 MEQ/15 ML PO ONE (09:15)
[2024-10-16] MEDS: D5-1/2NS+10 MEQ KCL - 10 MEQ/1,000 ML INFUS.BAG IV SCH (09:29)
[2024-10-16] MEDS: KCL 10 MEQ IVPB 10 MEQ/100 ML INFUS.BAG IVPB SCH ×2 (11:51→18:26)
[2024-10-16] MEDS: POTASSIUM CHLORIDE ORAL LIQUID 20 MEQ/15 ML PO ONE ×2 (12:35→21:54)
[2024-10-16 12:52] LABS: MAGNESIUM 1.7 mg/dL (1.8-2.4)
[2024-10-16 12:56] LABS: PHOSPHOROUS 2.9 mg/dL (2.5-4.9)
[2024-10-16 18:10] VITALS: BMI 23.9
[2024-10-16] MEDS ORDERED: MAGNESIUM 2GM/50ML STERILE WATER IVPB IVPB ONE (18:13)
[2024-10-16] MEDS ORDERED: MAGNESIUM SULF 50% (8.12 MEQ/2 ML-1 GM VIAL) IVPB ONE (18:45)
[2024-10-16] MEDS: MAGNESIUM SULF 50% (8.12 MEQ/2 ML-1 GM VIAL) IVPB ONE (23:08)
[2024-10-17] MEDS: KCL 10 MEQ IVPB 10 MEQ/100 ML INFUS.BAG IVPB SCH ×2 (00:38→03:52)
[2024-10-17 08:33] LABS: BASO % 0.6 % (0-2.0); EOS % 6.6 % (0-4.5); HEMATOCRIT 34.2 % (32.4-45.2); HEMOGLOBIN 11.6 GM/dL (10.7-15.3); MCH 31.2 pg (25.7-33.7); MCHC 33.9 g/dl (32.0-36.0); MEAN CELL VOLUME 92.1 fl (80-96); MEAN PLT VOLUME 10.2 fl (7.5-11.1); MONO % 16.8 % (3.8-10.2); PLATELET COUNT 174 10^3/uL (134-434); RBC 3.71 M/mm3 (3.60-5.2); RDW 13.4 % (11.6-15.6); WHITE BLOOD COUNT 3.9 K/mm3 (4.0-10.0)
[2024-10-17 08:44] LABS: POTASSIUM 3.7 mmol/L (3.5-5.1)
[2024-10-17 08:49] LABS: ALBUMIN 3.1 g/dl (3.4-5.0)
[2024-10-17 08:50] LABS: BLOOD UREA NITROGEN 10.3 mg/dL (7-18); CALCIUM 8.1 mg/dL (8.5-10.1); MAGNESIUM 2.1 mg/dL (1.8-2.4)
[2024-10-17 08:53] LABS: CREATININE 0.7 mg/dL (0.55-1.3); PHOSPHOROUS 2.6 mg/dL (2.5-4.9)
[2024-10-17 08:54] LABS: BILIRUBIN,TOTAL 0.5 mg/dL (0.2-1)
[2024-10-17 12:54] VITALS: RESP 17
[2024-10-17 15:49] VITALS: BP 132/84; PULSE 83; TEMP 98.2
== END 2024-10-17 15:33 | disposition home or self-care (01) ==
LOC: JER 19:57 → INTOOBSV 10-13 01:12 → JERBED 10-13 01:12 → J4W 10-13 20:53
PROVIDERS: ADMIT Internal Medicine; ATTEND Internal Medicine
PROC: 3E033NZ Introduction of Analgesics, Hypnotics, Sedatives into Peripheral Vein, Percutaneous Approach (ICD-10-PCS; principal; 2024-10-13)
PROC: 3E033GC Introduction of Other Therapeutic Substance into Peripheral Vein, Percutaneous Approach (ICD-10-PCS; 2024-10-13)
DX: R79.89 Other specified abnormal findings of blood chemistry (principal); R42 Dizziness and giddiness; I11.9 Hypertensive heart disease without heart failure; E87.6 Hypokalemia; I25.10 Atherosclerotic heart disease of native coronary artery without angina pectoris; E78.5 Hyperlipidemia, unspecified; Z90.49 Acquired absence of other specified parts of digestive tract; Z90.79 Acquired absence of other genital organ(s); K92.9 Disease of digestive system, unspecified; Z95.5 Presence of coronary angioplasty implant and graft; Z85.3 Personal history of malignant neoplasm of breast; Z88.0 Allergy status to penicillin
CPT/HCPCS: 0241U-QW; 36415; 70450-TC; 70551-TC; 71045-TC-FY; 80048; 80053; 81003; 83036; 83690; 83735; 83880; 84100; 84443; 84484; 85025; 85027; 85379; 85610; 85730; 87086; 93005; 93010; 93306-TC; 93880-TC; 96365; 96366; 96367; 96375; 99285-25; G0378; J0131